=== PATIENT | female | born 1955 | race Caucasian/White ===

== ENCOUNTER → 2022-05-18 | Outpatient (CLI) | payer MEDICARE ==
[2022-05-18 13:30] VITALS: BP 174/74; PULSE 80; RESP 18; TEMP 98.5
--- NOTE | 2022-05-18 14:02 | P.GSHP ---
History of Present Illness H&P Date: 05/18/22 Chief Complaint: invasive ductal left breast cancer April is a 67 year old white female seen in consultation for Dr. Gutiérrez regarding a left breast cancer. She states she noticed some fullness in her left breast approximately 3 months ago. She had a bilateral mammogram performed at [facility] was followed by a left breast ultrasound on 04-13-22. This revealed in the 2 o'clock position of the left breast and indistinct irregular mass. It measured 4.2 cm x 2 point centimeters the patient was also noted to have a approximately a 2 cm lesion in proximity to this. A left axillary lymph node was noted to be have an 8 a thickened cortex and a biopsy of this was performed as well. No lesions of concern were noted in the right breast. Pathology revealed in the left breast at 2:00 and invasive ductal carcinoma grade 2, left axillary tail invasive ductal carcinoma grade 2, and left axillary core biopsy lymph node with no evidence of metastatic disease. She has not had any other surgery trauma or infection in her breast. This was her first mammogram. Caffiene: 2 liter/day diet coke nicotine: 1 PPD/40 years BCP: stopped 30 years ago, used them for 10 years chocolate: several times/week Family history: maternal grandfather: prostate cancer sister: breast cancer; 48; lung cancer from this separate from breast cancer Hormonal History: menarche: 10 G0 BCP: 10 years menopause: 46 Surgical History: left leg amputation diabetes throat : 3 cyst removed Medical History: diabetes HTN Social History: nicotine: 1 PPD/ 40 years alcohol: none drugs: Marijuana occasional - Constitutional Constitutional: Denies chills, Denies fever - EENT Eyes: denies blurred vision, denies pain Ears: deny: decreased hearing, tinnitus Ears, nose, mouth and throat: Denies headache, Denies sore throat - Breasts Breasts: bilateral: as per HPI - Cardiovascular Cardiovascular: Denies chest pain, Denies shortness of breath - Respiratory Respiratory: Denies cough, Denies 7 - Gastrointestinal Gastrointestinal: Denies abdominal pain, Denies diarrhea, Denies nausea, Denies vomiting - Genitourinary (Female) Genitourinary: Denies dysuria, Denies hematuria - Menstruation Menstruation: Reports postmenopausal - Musculoskeletal Comment: leg amputation left Musculoskeletal: Denies myalgias - Integumentary Integumentary: Denies pruritus, Denies rash - Neurological Neurological: Denies numbness, Denies weakness - Psychiatric Psychiatric: Reports anxiety, Reports depression - Endocrine Comment: diabetes: 20 years - Hematologic/Lymphatic Comment: plavix - Allergic/Immunologic Allergic/Immunologic: Reports as per HPI Past Medical History Past Medical History: Hyperlipidemia, Hypertension History of Any Multi-Drug Resistant Organisms: None Reported Additional Past Surgical History / Comment(s): Throat surgery for polyps. Left toe removed. Below the knee amputee 2011 Past Anesthesia/Blood Transfusion Reactions: No Reported Reaction Past Psychological History: Anxiety, Bipolar, Depression Smoking Status: Current every day smoker Past Alcohol Use History: None Reported Additional Past Alcohol Use History / Comment(s): states 1ppd Past Drug Use History: Marijuana Additional Drug Use History / Comment(s): occassional THC use Medications and Allergies Home Medications Medication Instructions Recorded Confirmed Type Atorvastatin [Lipitor] 20 mg PO DAILY 04/28/22 05/18/22 History Clopidogrel [Plavix] 75 mg PO DAILY 04/28/22 05/18/22 History DULoxetine HCL [Cymbalta] 120 mg PO DAILY 04/28/22 05/18/22 History Insulin Aspart [NovoLOG] 30 units SQ TID 04/28/22 05/18/22 History Insulin Detemir (Levemir) [Levemir] 45 unit SQ HS 04/28/22 05/18/22 History Sertraline [Zoloft] 50 mg PO DAILY 04/28/22 05/18/22 History Triamterene-Hctz 37.5-25Mg 1 cap PO DAILY 04/28/22 05/18/22 History [Dyazide 37.5-25 Capsule] amLODIPine [Norvasc] 2.5 mg PO DAILY 04/28/22 05/18/22 History atenoloL [Tenormin] 50 mg PO DAILY 04/28/22 05/18/22 History busPIRone HCL 10 mg PO TID 04/28/22 05/18/22 History lisinopriL 40 mg PO DAILY 04/28/22 05/18/22 History Allergies Allergy/AdvReac Type Severity Reaction Status Date / Time No Known Allergies Allergy Verified 05/18/22 13:31 Surgical - Exam Vital Signs Temp Pulse Resp BP Pulse Ox 98.5 F 80 18 174/74 98 05/18/22 13:24 05/18/22 13:24 05/18/22 13:24 05/18/22 13:24 05/18/22 13:24 BMI: 27.8 - General no distress - Eyes normal ocular movement - Neck trachea midline - Respiratory normal respiratory effort, clear to auscultation - Cardiovascular Rhythm: regular Heart Sounds: normal: S1, S2 - Abdomen Abdomen: soft, non tender, no guarding, no rigid, no rebound - Integumentary normal turgor - Neurologic no disoriented, no combative - Musculoskeletal normal gait - Psychiatric oriented to time, oriented to person, oriented to place, speech is normal, memory intact Breast exam: BRA: XL inspection: puckering noted of the left lateral breast, weight breast grade 3 ptosis, left breast grade 2/3 Palpation: Right breast: Multiple positional exam fibrocystic changes no dominant masses or nodules of concern Right axilla: No adenopathy of concern Left breast: Multiple positional exam fullness upper-outer quadrant area does not appear fixed to the chest wall this is approximately 6 cm in size Left axilla: No adenopathy of concern Results Mammogram and ultrasound reviewed with Dr. Baker Assessment and Plan Assessment: Impression: 1. Invasive ductal carcinoma left breast 2 sites 2. Nicotine dependence 3. Diabetes 4. Hypertension Plan: Presentation of case at tumor board Appointment with medical oncology consider neoadjuvant chemotherapy Await HER-2 status Follow up after appointment at tumor board CC: Dr. Gutiérrez
== END ==
LOC: WWCWWP 12:53
PROVIDERS: ATTEND Surgery
DX: C50.912 Malignant neoplasm of unspecified site of left female breast (principal); E11.9 Type 2 diabetes mellitus without complications; I10 Essential (primary) hypertension; F17.210 Nicotine dependence, cigarettes, uncomplicated; E78.5 Hyperlipidemia, unspecified; F41.9 Anxiety disorder, unspecified; F31.9 Bipolar disorder, unspecified; Z79.4 Long term (current) use of insulin

== ENCOUNTER → 2022-06-23 | Outpatient (CLI) | payer MEDICARE ==
--- NOTE | 2022-06-30 15:17 | BMR ---
EXAMINATION TYPE: MR breast BILAT wo/w con DATE OF EXAM: 06/26/2022 COMPARISON: Mammogram dated 03/24/2022. Ultrasound dated 04/11/2022 and 05/03/2022. HISTORY: New diagnosis left breast cancer. Lymph node biopsy was negative for malignancy. TECHNIQUE: PULSE SEQUENCES: Multiplanar, multisequence MR images of the breast were obtained on a MRI imaging sc [facility]. Pre-contrast axial T2 fat-saturated, pre-contrast non-fat saturated T1, and one pre- and five post-contrast fat-saturated images were obtained of both breasts together with the breast coil. Delay ed volume axial gradient-echo images were obtained of both breasts together with the breast coil. Pos t-processed subtraction and MIP reconstructions were then generated. Dynamic images were spatially re gistered using the [employer] software package, and dynamic curves and parametric images were evaluated. As part of the dynamic portion of this examination, 7 mL of Gadavist was administered intravenously, without complication. Field of view for the dynamic portion of this study was 34 cm. FINDINGS: The technical quality of this study is considered adequate to make a final assessment and recommendat ion. There is scattered fibroglandular tissue bilaterally and minimal background enhancement. Axial T2 sequence demonstrates normal right axillary lymph nodes. There are at least 6 abnormal morph ology left axillary lymph nodes involving surgical levels 1 and 2. The largest lymph node low level 1 measures 2.5 cm. Axial T2 sequence demonstrates no cysts or fluid collections. There is diffuse skin and trabecular ed jesus throughout the entire left breast. Pectoralis muscle edema is also noted. In addition there is an asymmetric pleural effusion in the left. Non fat saturated T1 sequence demonstrates no fat containing lesions. Signal void is seen within a ma ss in the posterior 2 o'clock position of the left breast corresponding to mammographic marker clip s een on post biopsy mammogram dated 05/03/2022. Signal void is also seen deep to the 2.5 cm level 1 axi llary lymph node within the fatty tissue anterior to the pectoralis major muscle. There is diffuse mo derate skin thickening. Delayed post contrast sequence demonstrates left internal mammary lymphadenopathy involving surgical levels 1/2, 2/3, and 4/5 (axial dynamic post-contrast sequence image number 79). Regarding the right breast: There are no masses, architectural distortion or suspicious areas of enha ncement. Regarding the left breast: At the 2 o'clock position, 9.2 cm from the nipple, there is an irregular m ass with spiculated margins measuring 5.7 x 3.8 x 5.3 cm. Internal enhancement is heterogeneous. Kine tic assessment demonstrates fast initial enhancement followed by washout in the delayed portions of t he curve. This is best seen in image number [id number] of the axial dynamic sequence. The mass invades the p ectoralis major muscle for a length of 2.7 cm. In addition, there is discontinuous enhancement of the pectoralis muscle 1 cm inferior to the muscle invasion. There is lateral skin retraction with 6 mm o f focal enhancement highly suspicious for skin invasion. There are additional smaller masses anterior and central in location for an additional extent of 2.5 cm. Total extent of known malignancy plus additional masses is 7.6 x 6.3 cm. IMPRESSION: Known malignancy identified at the 2 o'clock position of the left breast with associated additional m asses for a total extent of 7.6 x 6.3 cm. Associated findings includes pectoralis muscle invasion, skin invasion, skin thickening, and skin and trabecular edema. Left axillary level 1 and 2 adenopathy. Left internal mammary adenopathy. Asymmetric left pleural effusion. No evidence of malignancy in the right breast. Normal right axillary lymph nodes. Recommendations: Appropriate action be taken of the known left breast malignancy. If it would change surgical manageme nt, repeat left axillary biopsy can be performed to confirm metastatic disease to the axilla. Thoracentesis can be performed if clinically indicated to assess left pleural effusion. BI-RADS category 1, negative right breast. BI-RADS category 6, known biopsy proven malignancy left breast. I have reviewed the exam and agree with the stat rad radiology report
== END | disposition home or self-care (01) ==
LOC: RADMRIMAIN 08:23
PROVIDERS: ATTEND Surgery
DX: C50.412 Malignant neoplasm of upper-outer quadrant of left female breast (principal); C50.212 Malignant neoplasm of upper-inner quadrant of left female breast; J90 Pleural effusion, not elsewhere classified; R59.0 Localized enlarged lymph nodes
CPT/HCPCS: C8908; A9585; 77049

== ENCOUNTER → 2022-07-06 | Outpatient (CLI) | payer MEDICARE ==
[2022-07-06 14:02] VITALS: BP 156/90; PULSE 82; RESP 17; TEMP 98.6
--- NOTE | 2022-07-06 14:15 | P.PN ---
Progress Note - Text Progress Note Date: 07/06/22 April is a 67-year-old white female who had a routine mammogram on 78. This revealed a 3.7 x 2.7 cm mass in the upper outer quadrant of the left breast at 2:00. [place] [id number] which revealed invasive ductal carcinoma grade 2 ER positive TN Positive and HER-2 negative. Additionally left axillary tail was biopsied which also revealed a grade 2 invasive ductal carcinoma. A left axillary lymph node was biopsied which was negative. The patient subsequently had an Oncotype DX done which showed a recurrence score of 24 and was noted to have a less than 1% benefit for chemotherapy. The patient has approximately 10% benefit for endocrine therapy preventing recurrence at 9 years. The patient had a MRI performed on [id number]. This revealed in the left breast an irregular mass with spiculated margins measuring 5.7 x 3.8 x 5.3 cm. Additionally the mass appeared to invade the pectoralis major muscle for a length of 2.7 cm. In addition there was discontinuous enhancement of the pectoralis muscle 1 cm inferior to the muscular invasion. There was lateral skin retraction with a 6 mm focal enhancement highly suspicious for skin invasion. There were additional smaller masses anterior and central for an additional extensive 2.5 cm. Total extent of no malignancy plus additional mass was approximately 7.6 x 6.3 cm. In addition the axillary region was suspicious and level I and level II for adenopathy and suspicious for left internal mammary adenopathy The patient was seen in consultation by Dr. Garcia of follow-up and was given a discussion regarding chemotherapy and hormonal therapy. Secondary to her Oncotype score chemotherapy was declined. The patient's lesion is felt to be a T2 clinical N0 clinical M0 G2 ER. Positive HER-2 negative lesion making this a clinical stage IB. attempt at core biopsy of the suspecious axillary node fabby-adjuvant hormone therapy follow up i one month CC: Dr. Adamson, Dr. Gutiérrez
== END | disposition home or self-care (01) ==
LOC: WWCWWP 13:40
PROVIDERS: ATTEND Surgery
DX: C50.912 Malignant neoplasm of unspecified site of left female breast (principal)

== ENCOUNTER → 2022-08-04 | Outpatient (CLI) | payer MEDICARE | END | disposition home or self-care (01) | LOC: RADPETMAIN 12:20 | PROVIDERS: ATTEND Internal Medicine | DX: Z53.9 Procedure and treatment not carried out, unspecified reason (principal) ==

== ENCOUNTER 2022-09-21 16:58 | Emergency (ER) | payer MEDICARE ==
[2022-09-21 17:54] VITALS: BP 182/72; PULSE 80; RESP 20; TEMP 97.9
--- NOTE | 2022-09-21 18:53 | XR ---
EXAMINATION: XR chest 2V: 09/21/2022 6:24 PM CLINICAL INDICATION: difficulty breathing TECHNIQUE: PA and lateral views. COMPARISON: None available. FINDINGS: On the right there is a rounded 5 cm diameter soft tissue mass in the right apex, abutting the right superoposterior mediastinal margin. The right lung is otherwise well expanded and clear. Right pleura l space shows only the previous pleural effusion posteriorly. On the left, there is a moderate pleural effusion with prominent atelectasis of the left lower lobe a nd lower lingula; request that concurrent bronchopneumonia be excluded clinically. The cardiac silhouette is not enlarged. The skeletal structures and soft tissues are negative for acute findings. Results discussed with ordering physician in order to help expedite management decision making. IMPRESSION: 1. 5 cm RUL bronchogenic mass. 2. Large left pleural effusion with passive atelectasis of the LLL and lower lingula.
[2022-09-21 19:27] LABS: Basophils # (A) 0.1 k/uL (0-0.2); Basophils % (A) 1 %; Eosinophils # (A) 0.1 k/uL (0-0.7); Eosinophils % (A) 1 %; HCT 36.4 % (34.0-46.0); HGB 12.1 gm/dL (11.4-16.0); Hypochromasia Slight; Lymphocytes # (A) 1.4 k/uL (1.0-4.8); Lymphocytes % (A) 15 %; MCH 28.7 pg (25.0-35.0); MCHC 33.3 g/dL (31.0-37.0); Mean Platelet Volume 8.7; Monocytes # (A) 0.7 k/uL (0-1.0); Monocytes % (A) 8 %; Neutrophils # (A) 6.5 k/uL (1.3-7.7); Neutrophils % (A) 73 %; Platelet Count 353 k/uL (150-450); RBC 4.23 m/uL (3.80-5.40); RDW 13.8 % (11.5-15.5)
[2022-09-21 19:34] LABS: INR 0.9 (<1.2); Partial Thromboplastin Time 22.4 sec (22.0-30.0); Prothrombin Time 9.9 sec (9.0-12.0)
[2022-09-21 19:40] LABS: Albumin 3.5 g/dL (3.5-5.0); Calcium 8.3 mg/dL (8.4-10.2); Total Bilirubin 0.4 mg/dL (0.2-1.3); Total Protein 5.9 g/dL (6.3-8.2)
== END 2022-09-21 21:40 | disposition left against medical advice (07) ==
LOC: EC 16:58
DX: Z53.21 Procedure and treatment not carried out due to patient leaving prior to being seen by health care provider (principal)
CPT/HCPCS: 36415; 71046; 80053; 83735; 84484; 85025; 85610; 85730; 93005; 99499

== ENCOUNTER 2022-09-26 17:29 | Inpatient (IN) | payer MEDICARE, OTHER ==
[2022-09-26 18:39] LABS: Basophils # (A) 0.1 k/uL (0-0.2); Basophils % (A) 2 %; Eosinophils # (A) 0.2 k/uL (0-0.7); Eosinophils % (A) 2 %; HCT 36.2 % (34.0-46.0); HGB 12.1 gm/dL (11.4-16.0); Hypochromasia Slight; Lymphocytes # (A) 1.3 k/uL (1.0-4.8); Lymphocytes % (A) 15 %; MCH 28.4 pg (25.0-35.0); MCHC 33.4 g/dL (31.0-37.0); Mean Platelet Volume 8.4; Monocytes # (A) 0.7 k/uL (0-1.0); Monocytes % (A) 8 %; Neutrophils # (A) 6.5 k/uL (1.3-7.7); Neutrophils % (A) 72 %; Platelet Count 380 k/uL (150-450); Poikilocytosis Slight; RBC 4.26 m/uL (3.80-5.40); WBC 9.1 k/uL (3.8-10.6)
[2022-09-26 18:53] LABS: Albumin 3.6 g/dL (3.5-5.0); Calcium 8.4 mg/dL (8.4-10.2); Potassium 4.4 mmol/L (3.5-5.1); Total Bilirubin 0.5 mg/dL (0.2-1.3); Total Protein 6.3 g/dL (6.3-8.2)
--- NOTE | 2022-09-26 19:04 | XR ---
EXAMINATION TYPE: XR chest 2V DATE OF EXAM: 09/26/2022 6:43 PM COMPARISON: Chest radiographs from 09/21/2022 TECHNIQUE: XR chest 2V Frontal and lateral views of the chest. CLINICAL INDICATION:Female, 67 years old with history of difficulty breathing; FINDINGS: Lungs/Pleura: Right lower lobe increased airspace opacities. Right upper lobe airspace opacity not si gnificantly changed from immediate prior. Mass measures up to 5.2 x 4.4 cm. Moderate left pleural eff usion associated atelectasis. No pneumothorax. Trace or pleural fusion. Pulmonary vascularity: Unremarkable. Heart/mediastinum: Cardiomediastinal silhouette is unremarkable. Musculoskeletal: No acute osseous pathology. IMPRESSION: 1. Increased right lower lobe airspace opacities correlate for developing pneumonia. 2. Right upper lobe pulmonary suspected mass remains present 3. Similar moderate left pleural effusion. 4. Trace right pleural effusion.
[2022-09-26] MEDS ORDERED: PNEUMONIA PROTOCOL UTILIZED 1 EACH MISC PO PRN (19:06)
[2022-09-26] MEDS ORDERED: AZITHROMYCIN 500 MG in SODIUM CHLORIDE 0.9% 250 ML IVPB STA (19:06)
[2022-09-26] MEDS: SODIUM CHLORIDE 0.9% 1,000 ML IV SCH (20:45)
--- NOTE | 2022-09-26 21:03 | ED ---
SOB HPI - General Chief Complaint: Shortness of Breath Stated Complaint: sob Time Seen by Provider: 09/26/22 17:43 Source: patient Mode of arrival: ambulatory Limitations: no limitations - History of Present Illness Initial Comments: This patient is a 67-year-old woman who is directly here from the office of her primary physician Dr. Gutiérrez. He had seen the patient today in relation to some shortness of breath that is been going on. Patient had come here to be seen about 5 days ago for these symptoms but she left without being seen by physician. While she was in the waiting room she did have labs and chest x-ray performed. Dr. Gutiérrez had reviewed these today in clinic and she was found to have a lung mass and it was noted that her creatinine was markedly elevated. Patient states that in comparison with Sunday she has not really noted that much change. She is not currently having chest pain. She is not sure about having a fever. She is having occasional cough. MD Complaint: shortness of breath -: days(s) Severity scale (1-10): 0 Consistency: constant Improves With: nothing Worsens With: nothing Associated Symptoms: cough Treatments Prior to Arrival: none - Related Data Home Oxygen Therapy: No Home Medications Medication Instructions Recorded Confirmed Atorvastatin [Lipitor] 20 mg PO DAILY 04/28/22 09/26/22 Clopidogrel [Plavix] 75 mg PO DAILY 04/28/22 09/26/22 DULoxetine HCL [Cymbalta] 60 mg PO BID 04/28/22 09/26/22 Sertraline [Zoloft] 50 mg PO DAILY 04/28/22 09/26/22 amLODIPine [Norvasc] 2.5 mg PO DAILY 04/28/22 09/26/22 atenoloL [Tenormin] 50 mg PO DAILY 04/28/22 09/26/22 busPIRone HCL 10 mg PO TID PRN 04/28/22 09/26/22 lisinopriL 40 mg PO DAILY 04/28/22 09/26/22 Ascorbic Acid [Vitamin C] 1,000 mg PO BID 09/26/22 09/26/22 Fluticasone Nasal [place] [Flonase 1 spr EA NOSTRIL DAILY 09/26/22 09/26/22 Nasal [place]] Insulin Aspart [NovoLOG Flexpen] See Protocol SQ AC-TID 09/26/22 09/26/22 Insulin Detemir [Levemir Flextouch 40 units SQ HS 09/26/22 09/26/22 Pen] Meclizine [Antivert] 25 mg PO DAILY 09/26/22 09/26/22 Multivitamins, Thera [Multivitamin 1 tab PO DAILY 09/26/22 09/26/22 (formulary)] Triamterene-Hctz 37.5-25Mg 1 tab PO DAILY 09/26/22 09/26/22 [Maxzide 37.5-25] Zinc Gluconate [Zinc] 50 mg PO DAILY 09/26/22 09/26/22 Allergies Allergy/AdvReac Type Severity Reaction Status Date / Time No Known Allergies Allergy Verified 09/26/22 17:40 Review of Systems ROS Statement: Those systems with pertinent positive or pertinent negative responses have been documented in the HPI. ROS Other: All systems not noted in ROS Statement are negative. Constitutional: Denies: fever, chills Respiratory: Reports: cough. Denies: dyspnea, wheezes Cardiovascular: Reports: chest pain. Denies: palpitations, edema Gastrointestinal: Denies: abdominal pain, nausea, vomiting Genitourinary: Denies: dysuria, hematuria Musculoskeletal: Denies: back pain Skin: Denies: rash Neurological: Denies: headache, weakness, numbness Past Medical History Past Medical History: Cancer, Hyperlipidemia, Hypertension History of Any Multi-Drug Resistant Organisms: None Reported Additional Past Surgical History / Comment(s): Throat surgery for polyps. Left toe removed. Below the knee amputee 2011 Past Anesthesia/Blood Transfusion Reactions: No Reported Reaction Past Psychological History: Anxiety, Bipolar, Depression Smoking Status: Current every day smoker Past Alcohol Use History: None Reported Past Drug Use History: Marijuana General Exam Limitations: no limitations General appearance: alert, in no apparent distress Head exam: Present: atraumatic, normocephalic Eye exam: Present: normal appearance. Absent: scleral icterus, conjunctival injection ENT exam: Present: mucous membranes dry Neck exam: Present: normal inspection Respiratory exam: Present: normal lung sounds bilaterally. Absent: respiratory distress, wheezes, rales, rhonchi, stridor Cardiovascular Exam: Present: regular rate, normal rhythm, normal heart sounds. Absent: systolic murmur, diastolic murmur, rubs, gallop GI/Abdominal exam: Present: soft. Absent: distended, tenderness, guarding, rebound, rigid, mass Extremities exam: Present: normal inspection, normal capillary refill. Absent: pedal edema, calf tenderness Back exam: Present: normal inspection. Absent: CVA tenderness (R), CVA tenderness (L) Neurological exam: Present: alert Skin exam: Present: warm, dry, intact, normal color. Absent: rash Course Vital Signs 09/26/22 09/26/22 09/26/22 17:35 20:48 22:22 Temperature 98 F Pulse Rate 78 72 74 Pulse Rate [ Pulse Oximetery ] Respiratory 18 18 18 Rate Blood Pressure 194/100 225/99 197/86 Blood Pressure [Left Arm] O2 Sat by Pulse 95 95 97 Oximetry 09/26/22 09/26/22 22:36 23:06 Temperature 97.8 F Pulse Rate 81 Pulse Rate [ 80 Pulse Oximetery ] Respiratory 16 18 Rate Blood Pressure 186/93 Blood Pressure 205/84 [Left Arm] O2 Sat by Pulse 93 L 95 Oximetry Medical Decision Making - Medical Decision Making Patient's 67-year-old woman sent in from her primary physician's office. There is noted to be suspicious lung mass as well as elevation of BUN/creatinine. Will have patient value by nephrology as well as further evaluation of the lung mass. I did interpret the patient's chest x-ray as showing a right upper lung infiltrate, not possible to exclude underlying mass. Was pt. sent in by a medical professional or institution? @ -[Dr. Gutiérrez Did you speak to anyone other than the patient for history? @ -[Family Did you review nursing and triage notes? @ -[agree Were old charts reviewed? @ -[Previous emergency department visit Differential Diagnosis? @ -[Differential Chest Pain: Stable Angina, Unstable Angina, STEMI, NSTEMI Aortic Dissection, Pneumothorax, Musculoskeletal, Esophageal Spasm GERD, Cholecystitis, Pancreatitis, Zoster, this is not meant to be an all-inclusive list. EKG interpreted by me (3pts min.)? @ -[See chart X-rays interpreted by me (1pt min.)? @ -[See chart CT interpreted by me (1pt min.)? @ -[none] U/S interpreted by me (1pt. min.)? @ -[none] What testing was considered but not performed? (CT, X-rays, U/S, labs)? Why? @ [Considered computed tomography scan chest but will leave the specific imaging for the specialists What meds were considered but not given? Why? @ -[none] Did you discuss the management of the patient with other professionals? @ -[Admitting physician Did you reconcile home meds? @ -[Yes Was smoking cessation discussed for >3mins.? @ -[none] Was critical care preformed (if so, how long)? @ -[none] Were there social determinants of health that impacted care today? How? (Homelessness, low income, unemployed, alcoholism, drug addiction, transportation, low edu. Level, literacy, decrease access to med. care, nursing home, rehab)? @ -[No Was there de-escalation of care discussed even if they declined? (Discuss DNR or withdrawal of care, Hospice)? @ -[No What co-morbidities impacted this encounter? (DM, HTN, Smoking, COPD, CAD, Cancer, CVA, Hep., AIDS, mental health diagnosis, sleep apnea, morbid obesity)? @ -[No Was patient admitted / discharged? @ -[Admitted Undiagnosed new problem with uncertain prognosis? @ -[none] Drug Therapy requiring intensive monitoring for toxicity (Heparin, Nitro, Insulin, Cardizem)? @ -[none] Were any procedures done? @ -[none] Diagnosis/symptom? @ -[1. Acute pneumonia 2. Suspect new diagnosis right upper lung mass Acute, or Chronic, or Acute on Chronic? @ -[1. Acute Uncomplicated (without systemic symptoms) or Complicated (systemic symptoms)? @ -[Uncomplicated Side effects of treatment? @ -[none] Exacerbation, Progression, or Severe Exacerbation] @ -[no] Poses a threat to life or bodily function? @ -[no] - Lab Data Result diagrams: 10/01/22 06:25 10/01/22 06:25 Lab Results 09/26/22 09/26/22 09/26/22 Range/Units 18:14 18:14 18:14 WBC 9.1 (3.8-10.6) k/uL RBC 4.26 (3.80-5.40) m/uL Hgb 12.1 (11.4-16.0) gm/dL Hct 36.2 (34.0-46.0) % MCV 85.0 (80.0-100.0) fL MCH 28.4 (25.0-35.0) pg MCHC 33.4 (31.0-37.0) g/dL RDW 14.0 (11.5-15.5) % Plt Count 380 (150-450) k/uL MPV 8.4 Neutrophils % 72 % Lymphocytes % 15 % Monocytes % 8 % Eosinophils % 2 % Basophils % 2 % Neutrophils # 6.5 (1.3-7.7) k/uL Lymphocytes # 1.3 (1.0-4.8) k/uL Monocytes # 0.7 (0-1.0) k/uL Eosinophils # 0.2 (0-0.7) k/uL Basophils # 0.1 (0-0.2) k/uL Hypochromasia Slight Poikilocytosis Slight Sodium 140 (137-145) mmol/L Potassium 4.4 (3.5-5.1) mmol/L Chloride 111 H (98-107) mmol/L Carbon Dioxide 17 L (22-30) mmol/L Anion Gap 12 mmol/L BUN 76 H (7-17) mg/dL Creatinine 4.75 H (0.52-1.04) mg/dL Est GFR (CKD-EPI)AfAm 10 (>60 ml/min/1.73 sqM) Est GFR (CKD-EPI)NonAf 9 (>60 ml/min/1.73 sqM) Glucose 160 H (74-99) mg/dL Plasma Lactic Acid Tony 1.1 (0.7-2.0) mmol/L Calcium 8.4 (8.4-10.2) mg/dL Magnesium 2.0 (1.6-2.3) mg/dL Total Bilirubin 0.5 (0.2-1.3) mg/dL AST 20 (14-36) U/L ALT 13 (4-34) U/L Alkaline Phosphatase 94 (38-126) U/L Troponin I (0.000-0.034) ng/mL NT-Pro-B Natriuret Pep pg/mL Total Protein 6.3 (6.3-8.2) g/dL Albumin 3.6 (3.5-5.0) g/dL 09/26/22 09/26/22 Range/Units 18:14 18:14 WBC (3.8-10.6) k/uL RBC (3.80-5.40) m/uL Hgb (11.4-16.0) gm/dL Hct (34.0-46.0) % MCV (80.0-100.0) fL MCH (25.0-35.0) pg MCHC (31.0-37.0) g/dL RDW (11.5-15.5) % Plt Count (150-450) k/uL MPV Neutrophils % % Lymphocytes % % Monocytes % % Eosinophils % % Basophils % % Neutrophils # (1.3-7.7) k/uL Lymphocytes # (1.0-4.8) k/uL Monocytes # (0-1.0) k/uL Eosinophils # (0-0.7) k/uL Basophils # (0-0.2) k/uL Hypochromasia Poikilocytosis Sodium (137-145) mmol/L Potassium (3.5-5.1) mmol/L Chloride (98-107) mmol/L Carbon Dioxide (22-30) mmol/L Anion Gap mmol/L BUN (7-17) mg/dL Creatinine (0.52-1.04) mg/dL Est GFR (CKD-EPI)AfAm (>60 ml/min/1.73 sqM) Est GFR (CKD-EPI)NonAf (>60 ml/min/1.73 sqM) Glucose (74-99) mg/dL Plasma Lactic Acid Tony (0.7-2.0) mmol/L Calcium (8.4-10.2) mg/dL Magnesium (1.6-2.3) mg/dL Total Bilirubin (0.2-1.3) mg/dL AST (14-36) U/L ALT (4-34) U/L Alkaline Phosphatase (38-126) U/L Troponin I <0.012 (0.000-0.034) ng/mL NT-Pro-B Natriuret Pep 74121 pg/mL Total Protein (6.3-8.2) g/dL Albumin (3.5-5.0) g/dL - EKG Data -: EKG Interpreted by De EKG shows normal: sinus rhythm, axis (Normal), intervals (Normal), QRS complexes (Normal) Rate: normal (Rate 71 bpm) Interpretation: nonspecific ST-T wave changes Disposition Clinical Impression: Mass of lung, Acute kidney injury Disposition: ADMITTED IP TO THIS HOSP Condition: Fair
[2022-09-26] MEDS ORDERED: lisinopriL 20 MG TAB PO STA (21:51)
[2022-09-26] MEDS ORDERED: atenoloL 50 MG TAB PO STA (21:51)
[2022-09-26] MEDS ORDERED: hydrALAZINE HCL 20 MG/ML 1 ML VIAL IVP PRN (22:28)
[2022-09-26] MEDS ORDERED: DEXTROSE 50% SYRINGE 50 ML IVP PRN ×2 (22:35)
--- NOTE | 2022-09-27 00:26 | US ---
EXAMINATION TYPE: US renals and bladder DATE OF EXAM: 09/26/2022 COMPARISON: NONE CLINICAL HISTORY: uriah. uriah EXAM MEASUREMENTS: Right Kidney: 9.6 x 4.1 x 5.6 cm Left Kidney: 9.9 x 4.1 x 5.4 cm Right Kidney: No hydronephrosis or masses seen Left Kidney: No hydronephrosis or masses seen Bladder: Artifact vs echogenic material in posterior bladder Bilateral Jets seen: Right jet seen, limited due to gas Incidental finding: free fluid visualized in right chest. There is no evidence for hydronephrosis at this point in time. No nephrolithiasis is seen. No yan s are identified. The urinary bladder is anechoic. Bilateral ureteral jets are seen. IMPRESSION: No evidence of renal mass or obstruction. Right-sided ureteral jet is demonstrated. No definite bladd er mass. Possible debris in the posterior urinary bladder. There is right pleural effusion.
[2022-09-27] MEDS: IPRATROPIUM-ALBUTEROL 3 ML NEB INHALATION SCH ×5 (02:28→20:55)
[2022-09-27] MEDS: SODIUM CHLORIDE 0.9% 1,000 ML IV SCH (06:44)
[2022-09-27] MEDS ORDERED: cloNIDine 0.2 MG/24HR PATCH TRANSDERM SCH (07:00)
[2022-09-27 07:08] LABS: Glucose,Whole Blood 332 mg/dL (70-110)
--- NOTE | 2022-09-27 07:14 | XR ---
CLINICAL INDICATION:Female, 67 years old with history of pneumonia; EXAMINATION TYPE: XR chest 2V DATE OF EXAM: 09/27/2022 6:39 AM COMPARISON: Chest radiographs from 09/26/2022 TECHNIQUE: XR chest 2V Frontal and lateral views of the chest. CLINICAL INDICATION:Female, 67 years old with history of pneumonia; FINDINGS: Lungs/Pleura: Right lower lobe increased airspace opacities. Right upper lobe airspace opacity not si gnificantly changed from immediate prior. Mass measures up to 5.2 x 4.4 cm. Moderate left pleural eff usion associated atelectasis. No pneumothorax. Trace or pleural fusion. Pulmonary vascularity: Unremarkable. Heart/mediastinum: Cardiomediastinal silhouette is unremarkable. Musculoskeletal: No acute osseous pathology. IMPRESSION: 1. Improved right lower lobe airspace opacities suggesting prior atelectasis. 2. Right upper lobe pulmonary suspected mass remains present. 3. Similar moderate left pleural effusion. 4. Trace right pleural effusion.
[2022-09-27 07:48] LABS: Basophils # (A) 0.1 k/uL (0-0.2); Basophils % (A) 1 %; Eosinophils # (A) 0.1 k/uL (0-0.7); Eosinophils % (A) 1 %; HCT 36.3 % (34.0-46.0); HGB 11.3 gm/dL (11.4-16.0); Hypochromasia Slight; Lymphocytes % (A) 10 %; MCH 27.6 pg (25.0-35.0); MCHC 31.2 g/dL (31.0-37.0); MCV 88.4 fL (80.0-100.0); Mean Platelet Volume 8.1; Monocytes # (A) 0.3 k/uL (0-1.0); Monocytes % (A) 4 %; Neutrophils % (A) 82 %; Platelet Count 339 k/uL (150-450); Poikilocytosis Slight; RDW 14.6 % (11.5-15.5); WBC 9.8 k/uL (3.8-10.6)
[2022-09-27] MEDS: INSULIN ASPART (NovoLOG) 100 UNIT/ML VIAL SQ SCH ×4 (07:57→21:33)
[2022-09-27] MEDS: amLODIPine 10 MG TAB PO SCH (08:00)
[2022-09-27] MEDS: hydrALAZINE HCL 25 MG TAB PO SCH ×3 (08:00→21:33)
[2022-09-27 08:04] LABS: Calcium 8.1 mg/dL (8.4-10.2)
--- NOTE | 2022-09-27 08:55 | US ---
EXAMINATION TYPE: US chest DATE OF EXAM: 09/27/2022 COMPARISON: CXR CLINICAL HISTORY: left pleural effusion. Left effusion TECHNIQUE: Targeted ultrasound of the posterior lower left hemithorax EXAM MEASUREMENTS: Left Pleural Effusion pocket size: 10.4 cm Left skin surface to fluid distance: 5.0 cm Left side marked for possible thoracentesis outside the dept. Pulmonologists are able to review the images in the patient?s EMR. IMPRESSIONS: Moderate to large left pleural effusion.
[2022-09-27] MEDS: AZITHROMYCIN 500 MG TAB PO SCH (09:03)
--- NOTE | 2022-09-27 09:31 | P.HPIM ---
History of Present Illness this is a pleasant 67 years old female with past medical history of hypertension, hyperlipidemia, Bipolar, anxiety and depression, diabetes mellitus Patient was complaining of from dyspnea for about a week and her PCP Dr. Gutiérrez send her to emergency room. She denies cough no chest pain patient noticed decrease frequency and amount of urination recently She's been feeling dizziness for the last 3 months but no weakness or numbness. No GI symptoms like no vomiting diarrhea or abdominal pain Patient also follow up with Dr. dash for recently diagnosed left breast cancer as she states since last April. She is not on chemotherapy Vitals are stable, blood pressure elevated to 225/99, now improved 189/82 Labs including CBC is unremarkable. Creatinine is elevated 4.7 was 3.7 about 5 days ago There were enzymes are unremarkable, proBNP is elevated 11 600, troponin is negative. EKG showing normal sinus rhythm at [address]-T changes Increased right lower lobe airspace opacity correlated for developing pneumonia. Right upper lobe pulmonary suspected mass remains present. Seminal moderate left pleural effusion and trace right pleural effusion In the emergency room patient started on Zithromax and ceftriaxone and normal saline 100 mL/h. Bladder scan checks it was 270 Review of Systems Review of systems CONSTITUTIONAL: No fever, no malaise, no fatigue. HEENT: No recent visual problems or hearing problems. Denied any sore throat. CARDIOVASCULAR: No orthopnea, PND, no palpitations, no syncope. PULMONARY: no cough, no hemoptysis. GASTROINTESTINAL: No diarrhea, no nausea, no vomiting, no abdominal pain. Normoactive bowel sounds. NEUROLOGICAL: No headaches, no weakness, no numbness. HEMATOLOGICAL: Denies any bleeding or petechiae. GENITOURINARY: Denies any burning micturition, frequency, or urgency. MUSCULOSKELETAL/RHEUMATOLOGICAL: Denies any joint pain, swelling, or any muscle pain. ENDOCRINE: Denies any polyuria or polydipsia. Past Medical History Past Medical History: Cancer, Hyperlipidemia, Hypertension History of Any Multi-Drug Resistant Organisms: None Reported Additional Past Surgical History / Comment(s): Throat surgery for polyps. Left toe removed. Below the knee amputee 2011 Past Anesthesia/Blood Transfusion Reactions: No Reported Reaction Past Psychological History: Anxiety, Bipolar, Depression Smoking Status: Current every day smoker Past Alcohol Use History: None Reported Past Drug Use History: Marijuana Medications and Allergies Home Medications Medication Instructions Recorded Confirmed Type Atorvastatin [Lipitor] 20 mg PO DAILY 04/28/22 09/26/22 History Clopidogrel [Plavix] 75 mg PO DAILY 04/28/22 09/26/22 History DULoxetine HCL [Cymbalta] 60 mg PO BID 04/28/22 09/26/22 History Sertraline [Zoloft] 50 mg PO DAILY 04/28/22 09/26/22 History amLODIPine [Norvasc] 2.5 mg PO DAILY 04/28/22 09/26/22 History atenoloL [Tenormin] 50 mg PO DAILY 04/28/22 09/26/22 History busPIRone HCL 10 mg PO TID PRN 04/28/22 09/26/22 History lisinopriL 40 mg PO DAILY 04/28/22 09/26/22 History Ascorbic Acid [Vitamin C] 1,000 mg PO BID 09/26/22 09/26/22 History Fluticasone Nasal [place] [Flonase 1 spr EA NOSTRIL DAILY 09/26/22 09/26/22 History Nasal Comins] Insulin Aspart [NovoLOG Flexpen] See Protocol SQ AC-TID 09/26/22 09/26/22 History Insulin Detemir [Levemir Flextouch 40 units SQ HS 09/26/22 09/26/22 History Pen] Meclizine [Antivert] 25 mg PO DAILY 09/26/22 09/26/22 History Multivitamins, Thera [Multivitamin 1 tab PO DAILY 09/26/22 09/26/22 History (formulary)] Triamterene-Hctz 37.5-25Mg 1 tab PO DAILY 09/26/22 09/26/22 History [Maxzide 37.5-25] Zinc Gluconate [Zinc] 50 mg PO DAILY 09/26/22 09/26/22 History Allergies Allergy/AdvReac Type Severity Reaction Status Date / Time No Known Allergies Allergy Verified 09/26/22 17:40 Physical Exam Vitals: Vital Signs Temp Pulse Pulse Resp BP BP Pulse Ox 09/27/22 07:04 97.2 F L 86 17 189/82 95 09/27/22 07:00 97.2 F L 86 17 189/82 95 09/27/22 01:44 98.1 F 81 16 193/78 92 L 09/27/22 00:07 98.1 F 81 15 168/81 94 L 09/26/22 23:06 81 18 186/93 95 09/26/22 22:36 97.8 F 80 16 205/84 93 L 09/26/22 22:22 74 18 197/86 97 09/26/22 20:48 72 18 225/99 95 09/26/22 17:35 98 F 78 18 194/100 95 Intake and Output 09/26/22 09/27/22 09/27/22 22:59 06:59 14:59 Output Total 271 Balance -271 Output: Post Void Residual 271 Other: # Voids 1 Weight 75.75 kg GENERAL: The patient is alert and oriented x3, not in any acute distress. Well developed, well nourished. HEENT: Pupils are round and equally reacting to light. EOMI. No scleral icterus. No conjunctival pallor. Normocephalic, atraumatic. No pharyngeal erythema. No thyromegaly. CARDIOVASCULAR: S1 and S2 present. No murmurs, rubs, or gallops. PULMONARY: Chest is clear to auscultation, no wheezing or crackles. ABDOMEN: Soft, nontender, nondistended, normoactive bowel sounds. No palpable organomegaly. MUSCULOSKELETAL: No joint swelling or deformity. -EXTREMITIES: No cyanosis, clubbing, or pedal edema. Left BKA with prosthesis at bedside NEUROLOGICAL: Gross neurological examination did not reveal any focal deficits. SKIN: No rashes. no petechiae. Results CBC & Chem 7: 09/27/22 07:28 09/27/22 07:28 Labs: Abnormal Lab Results - Last 24 Hours (Table) 09/26/22 09/27/22 09/27/22 Range/Units 18:14 07:06 07:28 Hgb 11.3 L (11.4-16.0) gm/dL Neutrophils # 8.0 H (1.3-7.7) k/uL Chloride 111 H (98-107) mmol/L Carbon Dioxide 17 L (22-30) mmol/L BUN 76 H (7-17) mg/dL Creatinine 4.75 H (0.52-1.04) mg/dL Glucose 160 H (74-99) mg/dL POC Glucose (mg/dL) 332 H (70-110) mg/dL Calcium (8.4-10.2) mg/dL 09/27/22 Range/Units 07:28 Hgb (11.4-16.0) gm/dL Neutrophils # (1.3-7.7) k/uL Chloride 113 H (98-107) mmol/L Carbon Dioxide 11 L (22-30) mmol/L BUN 74 H (7-17) mg/dL Creatinine 4.87 H (0.52-1.04) mg/dL Glucose 315 H (74-99) mg/dL POC Glucose (mg/dL) (70-110) mg/dL Calcium 8.1 L (8.4-10.2) mg/dL Thrombosis Risk Factor Assmnt - Choose All That Apply Each Factor Represents 1 point: Serious lung disease incl. pneumonia (< 1month) Each Risk Factor Represents 2 Points: Age 61-74 years Other congenital or acquired thrombophilia - If yes, enter type in comment: No Thrombosis Risk Factor Assessment Total Risk Factor Score: 3 Thrombosis Risk Factor Assessment Level: Moderate Risk Assessment and Plan Assessment: Acute renal failure Right upper lobe pulmonary mass suspected, Left pleural effusion History of left breast cancer diagnosed last April not on chemotherapy Possible acute diastolic CHF Right lower lobe opacities, less likely pneumonia Hypertension Hyperlipidemia Diabetes mellitus History of bipolar, anxiety, not in active tissue Surgery of left BKA Plan: pt is currently on normal saline 100 mL per hour Rolling Attendant consult follow-up Check renal ultrasound Consult oncology and pulmonary service IV hydralazine when necessary for blood pressure and monitor blood pressure closely. Start oral hydralazine and Norvasc Check pro-calcitonin check echocardiogram monitor creatinine and input and output, monitor blood pressure closely. Labs and medication were reviewed.. Continue same treatment. Continue with symptomatic treatment. Resume home medication. Monitor lytes and vitals. DVT and GI prophylaxis. Further recommendations as per clinical course of the patient DVT prophylaxis: Subcutaneous heparin GI Prophylaxis: Pepcid PT/OT: Pending
--- NOTE | 2022-09-27 09:54 | CT ---
EXAMINATION TYPE: CT chest wo con DATE OF EXAM: 09/27/2022 COMPARISON: Chest x-ray 09/26/2022 HISTORY: RUL mass CT DLP: 399.6 mGycm, Automated exposure control for dose reduction was used. CONTRAST: Performed injected with 0 mL of Isovue 300. TECHNIQUE: Axial images were obtained at 5 mm thick sections. Reconstructed images are reviewed on [employer] computer in the coronal plane. FINDINGS: Thyroid is heterogenous with some hypodensity within the left lobe thyroid. Consider additi onal workup with ultrasound. There is a 4.4 x 3.9 cm mass in the posterior right upper lobe. Workup for neoplasm is recommended. S mall area of increased densities in the anterior right lung measuring 0.5 cm. Series 205 image 27. So me pleural-based thickening along the anterior left lung is present. Small to moderate bilateral pleu ral effusions are present. There is an enlarged 2.2 cm lymph node in the pretracheal space above the level of the sultana. Right hilar fullness is present. Lack of intravenous contrast somewhat limits evaluation or adenopathy and mass. Subcarinal lymph node may be present measuring 1.4 cm. These findings can be further evaluated with PET/CT. The ascending aorta diameter at the level of the main pulmonary artery is 3.6 cm. The main pulmonary artery diameter at the bifurcation is 2.7 cm. Coronary artery calcification is present. Some buck sive atelectasis adjacent to the left pleural effusion is present. Limited CT sections are obtained through the upper abdomen. Low-density thickening of the left adrena l gland measures 1.3 cm IMPRESSIONS: 1. Posterior right lung mass with enlarged mediastinal adenopathy. PET/CT is recommended for addition al workup for neoplasm. 2. There is some thickening of the left adrenal gland. Metastasis and adenoma are within the differen tial. 3. Small to moderate bilateral pleural effusions. Some compressive atelectasis is adjacent to the lef t pleural effusion.
[2022-09-27 11:02] LABS: Glucose,Whole Blood 291 mg/dL (70-110)
[2022-09-27] MEDS ORDERED: SODIUM BICARB 8.4% 50 ML SYR (1 MEQ/ML) IV STA (11:11)
--- NOTE | 2022-09-27 11:15 | P.NPCON ---
History of Present Illness - Reason for Consult acute renal failure - History of Present Illness Reason for consultation: Acute kidney injury History of present illness: The patient is a 67-year-old female seen in consultation for acute kidney injury. Patient's creatinine is a 09/21/2022 was 3.7 to and is 4.7-4.8 this admission. Unknown baseline renal function. Patient does not follow with a behavior support specialist outpatient and denies any personal or family history of renal disease. Patient does have long-standing history of diabetes. Bases states she was treated for upper respiratory infection with antibiotics outpatient and had no improvement in symptoms. She was seen by her PCP yesterday and was advised to go to the hospital. Patient was diagnosed with breast cancer last year and is being worked up by oncology. She is noted to have a lung mass. She did undergo thoracentesis this morning was 750 mL drained. She was taking lisinopril as well as triamterene/hctz at home which are currently held. She is receiving IV fluids. Acidosis is worse. Patient states she has been voiding. Denies hematuria. Denies use of nonsteroidals. No vomiting or diarrhea. No chest pain or shortness of breath. Vital signs are stable. General: No acute distress. HEENT: Head exam is unremarkable. LUNGS Breath sounds decreased. HEART: Rate and Rhythm are regular. ABDOMEN: Soft, no distention. EXTREMITITES: Left BKA. No edema. Past Medical History Past Medical History: Cancer, Hyperlipidemia, Hypertension History of Any Multi-Drug Resistant Organisms: None Reported Additional Past Surgical History / Comment(s): Throat surgery for polyps. Left toe removed. Below the knee amputee 2011 Past Anesthesia/Blood Transfusion Reactions: No Reported Reaction Past Psychological History: Anxiety, Bipolar, Depression Smoking Status: Current every day smoker Past Alcohol Use History: None Reported Past Drug Use History: Marijuana Medications and Allergies Home Medications Medication Instructions Recorded Confirmed Type Atorvastatin [Lipitor] 20 mg PO DAILY 04/28/22 09/26/22 History Clopidogrel [Plavix] 75 mg PO DAILY 04/28/22 09/26/22 History DULoxetine HCL [Cymbalta] 60 mg PO BID 04/28/22 09/26/22 History Sertraline [Zoloft] 50 mg PO DAILY 04/28/22 09/26/22 History amLODIPine [Norvasc] 2.5 mg PO DAILY 04/28/22 09/26/22 History atenoloL [Tenormin] 50 mg PO DAILY 04/28/22 09/26/22 History busPIRone HCL 10 mg PO TID PRN 04/28/22 09/26/22 History lisinopriL 40 mg PO DAILY 04/28/22 09/26/22 History Ascorbic Acid [Vitamin C] 1,000 mg PO BID 09/26/22 09/26/22 History Fluticasone Nasal [place] [Flonase 1 spr EA NOSTRIL DAILY 09/26/22 09/26/22 History Nasal [place]] Insulin Aspart [NovoLOG Flexpen] See Protocol SQ AC-TID 09/26/22 09/26/22 History Insulin Detemir [Levemir Flextouch 40 units SQ HS 09/26/22 09/26/22 History Pen] Meclizine [Antivert] 25 mg PO DAILY 09/26/22 09/26/22 History Multivitamins, Thera [Multivitamin 1 tab PO DAILY 09/26/22 09/26/22 History (formulary)] Triamterene-Hctz 37.5-25Mg 1 tab PO DAILY 09/26/22 09/26/22 History [Maxzide 37.5-25] Zinc Gluconate [Zinc] 50 mg PO DAILY 09/26/22 09/26/22 History Allergies Allergy/AdvReac Type Severity Reaction Status Date / Time No Known Allergies Allergy Verified 09/26/22 17:40 Physical Exam Vitals: Vital Signs Temp Pulse Pulse Resp BP BP Pulse Ox 09/27/22 07:04 97.2 F L 86 17 189/82 95 09/27/22 07:00 97.2 F L 86 17 189/82 95 09/27/22 01:44 98.1 F 81 16 193/78 92 L 09/27/22 00:07 98.1 F 81 15 168/81 94 L 09/26/22 23:06 81 18 186/93 95 09/26/22 22:36 97.8 F 80 16 205/84 93 L 09/26/22 22:22 74 18 197/86 97 09/26/22 20:48 72 18 225/99 95 09/26/22 17:35 98 F 78 18 194/100 95 Intake and Output 09/26/22 09/27/2209/27/23 22:59 06:59 14:59 Output Total 271 Balance -271 Output: Post Void Residual 271 Other: Voiding Method Bedside Commode # Voids 1 Weight 75.75 kg Results - Lab Results Most recent lab results Calcium 8.1 mg/dL (8.4-10.2) L 09/27/22 07:28 Magnesium 2.0 mg/dL (1.6-2.3) 09/26/22 18:14 09/27/22 07:28 09/27/22 07:28 Assessment and Plan Plan: Assessment: 1. Acute kidney injury secondary to ATN versus progression of underlying chronic kidney disease. Creatinine 4.87 today. No hydronephrosis noted on kidney ultrasound. Creatinine on 09/21/2022 was 3.72. Unknown baseline renal function. 2. Bilateral pleural effusions status post right-sided thoracentesis with 750 mL drained. 3. History of breast cancer. Now noted to have right lung mass with concern for adrenal metastasis as well. Bronchoscopy pending. 4. Metabolic acidosis secondary to acute kidney injury. 5. Diabetes mellitus. Plan: Change normal saline to isotonic sodium bicarbonate drip to be run at 75 mL an hour. Check bladder scan to make sure no urinary retention. Strict I's and O's. Blood sugar control. Hold lisinopril as well as diuretics. Patient started on multiple antihypertensives. When necessary hydralazine also ordered. Avoid nephrotoxins. Continue to monitor renal function and urine output. Thank you for the consultation. I will continue to follow patient with you during her hospital stay.
[2022-09-27] MEDS ORDERED: IOPAMIDOL CONTRAST (ORAL USE) VIAL PO PRN (12:03)
--- NOTE | 2022-09-27 12:14 | XR ---
EXAMINATION TYPE: XR chest 1V portable DATE OF EXAM: 09/27/2022 11:45 AM COMPARISON: Chest radiographs from 09/27/2022 TECHNIQUE: XR chest 1V portable Frontal and lateral views of the chest. CLINICAL INDICATION:Female, 67 years old with history of post-thoracentesis left; FINDINGS: Lungs/Pleura: Interval decrease in the left pleural effusion. No evidence of pneumothorax. Right uppe r lobe airspace opacity not significantly changed from immediate prior. Mass measures up to 5.2 x 4.4 cm. Trace or pleural fusion. Pulmonary vascularity: Unremarkable. Heart/mediastinum: Cardiomediastinal silhouette is unremarkable. Musculoskeletal: No acute osseous pathology. IMPRESSION: 1. Right upper lobe pulmonary mass remains present. 2. Decrease in left pleural effusion. No evidence of pneumothorax. 3. Trace right pleural effusion.
[2022-09-27] MEDS: DEXTROSE 5% IN WATER 1,000 ML with SODIUM BICARB (1 MEQ/ML) 150 ML IV SCH (13:19)
--- NOTE | 2022-09-27 14:04 | P.CNPUL ---
History of Present Illness Consult date: 09/27/22 Requesting physician: Mariusz Pendleton Reason for consult: pleural effusion, lung mass Chief complaint: shortness of breath for one week History of present illness: I'm evaluating this patient today on 09/27/2022 in regard to a new consult that was placed for a large right lung mass. The patient was directed to [facility] by her primary care physician Dr. Gutiérrez, after having shortness of breath for approximately 1 week. there is an associated nonproductive cough. Patient denies any hemoptysis, chest pain, fevers. Her pertinent medical history is positive for left breast ductal carcinoma diagnosed in April,. She apparently has not started treatment yet, and is waiting on a PET scan. She is a 2 pack per day smoker for approximately 50 years, has a history of a left BKA, hyperlipidemia, hypertension, diabetes mellitus, anxiety, bipolar, depression. no family history of lung cancer noted. her non-enhanced chest CT from today showed a posterior right lung mass with enlarged mediastinal adenopathy, some thickening of the left adrenal gland which could indicate metastasis or adenoma, and some small to moderate to moderate bilateral pleural effusions with compress cassy atelectasis adjacent to the left pleural effusion. Patient had a follow-up chest ultrasound which showed a moderate to large left pleural effusion, which will need to be drained for symptom relief and cytology. she is currently resting in bed, on 2 L nasal cannula, in no acute distress. she is receiving DuoNeb inhalation. renal ultrasound was also done yesterday on 09/26/2022 due to elevation in her creatinine which showed no evidence of renal mass or obstruction, some possible debris in the posterior urinary bladder, and no definite bladder mass. nephrology consult was placed. CBC from today shows a WBC count 9.8, hemoglobin 11.3, hematocrit 36.3, platelets 339,000. Her BMP from today shows a sodium of 140, potassium 5, chloride 113, serum CO2 11, BUN 74, creatinine 4.87, glucose 315. She received 2 amps of sodium bicarbonate IV push, and she is receiving 3 amps of sodium bicarbonate in dextrose at 75 mL per hour. her procalcitonin was mildly elevated at 0.24. she is empirically receiving azithromycin and Rocephin. Her pro BNP was 11,400. Troponins are negative 1. vital signs remain stable at this time. her blood pressure is hypertensive and her home antihypertensive medications have been restarted, however, lisinopril is on hold due to her acute kidney injury. Review of Systems REVIEW OF SYSTEMS: CONSTITUTIONAL: Denies any recent significant weight loss or weight gain. denies fevers. EYES: Denies change in vision. EARS, NOSE, MOUTH, THROAT: Denies headaches, denies sore throat. CARDIOVASCULAR: Denies chest pain, palpitations or syncopal episodes. RESPIRATORY: Denies congestion or hemoptysis. see HPI GASTROINTESTINAL: Denies change in appetite, denies abdominal pain GENITOURINARY: Denies hematuria, denies infections. MUSKULOSKELETAL: Denies pain, denies swelling. INTEGUMENTARY: Denies rash, denies eczema. NEUROLOGICAL: Denies recent memory loss, no recent seizure activity. PSYCHIATRIC: Denies anxiety, denies depression. HEMATOLOGIC/LYMPHATIC: Denies anemia, denies enlarged lymph nodes. Past Medical History Past Medical History: Cancer, Diabetes Mellitus, Hyperlipidemia, Hypertension Additional Past Medical History / Comment(s): left breast ductal carcinoma diagnosed April, History of Any Multi-Drug Resistant Organisms: None Reported Additional Past Surgical History / Comment(s): Throat surgery for polyps. Left toe removed. Below the knee amputee 2011 Past Anesthesia/Blood Transfusion Reactions: No Reported Reaction Past Psychological History: Anxiety, Bipolar, Depression Smoking Status: Current every day smoker Past Alcohol Use History: None Reported Past Drug Use History: Marijuana Medications and Allergies Home Medications Medication Instructions Recorded Confirmed Type Atorvastatin [Lipitor] 20 mg PO DAILY 04/28/22 09/26/22 History Clopidogrel [Plavix] 75 mg PO DAILY 04/28/22 09/26/22 History DULoxetine HCL [Cymbalta] 60 mg PO BID 04/28/22 09/26/22 History Sertraline [Zoloft] 50 mg PO DAILY 04/28/22 09/26/22 History amLODIPine [Norvasc] 2.5 mg PO DAILY 04/28/22 09/26/22 History atenoloL [Tenormin] 50 mg PO DAILY 04/28/22 09/26/22 History busPIRone HCL 10 mg PO TID PRN 04/28/22 09/26/22 History lisinopriL 40 mg PO DAILY 04/28/22 09/26/22 History Ascorbic Acid [Vitamin C] 1,000 mg PO BID 09/26/22 09/26/22 History Fluticasone Nasal [place] [Flonase 1 spr EA NOSTRIL DAILY 09/26/22 09/26/22 History Nasal [place]] Insulin Aspart [NovoLOG Flexpen] See Protocol SQ AC-TID 09/26/22 09/26/22 History Insulin Detemir [Levemir Flextouch 40 units SQ HS 09/26/22 09/26/22 History Pen] Meclizine [Antivert] 25 mg PO DAILY 09/26/22 09/26/22 History Multivitamins, Thera [Multivitamin 1 tab PO DAILY 09/26/22 09/26/22 History (formulary)] Triamterene-Hctz 37.5-25Mg 1 tab PO DAILY 09/26/22 09/26/22 History [Maxzide 37.5-25] Zinc Gluconate [Zinc] 50 mg PO DAILY 09/26/22 09/26/22 History Allergies Allergy/AdvReac Type Severity Reaction Status Date / Time No Known Allergies Allergy Verified 09/26/22 17:40 Physical Exam Vitals: Vital Signs Temp Pulse Pulse Resp BP BP Pulse Ox 09/27/22 07:04 97.2 F L 86 17 189/82 95 09/27/22 07:00 97.2 F L 86 17 189/82 95 09/27/22 01:44 98.1 F 81 16 193/78 92 L 09/27/22 00:07 98.1 F 81 15 168/81 94 L 09/26/22 23:06 81 18 186/93 95 09/26/22 22:36 97.8 F 80 16 205/84 93 L 09/26/22 22:22 74 18 197/86 97 09/26/22 20:48 72 18 225/99 95 09/26/22 17:35 98 F 78 18 194/100 95 Intake and Output 09/26/22 09/27/22 09/27/22 22:59 06:59 14:59 Output Total 271 Balance -271 Output: Post Void Residual 271 Other: Voiding Method Bedside Commode # Voids 1 Weight 75.75 kg GENERAL EXAM: Alert, 67-year-old female, comfortable in no apparent distress. HEAD: Normocephalic and atraumatic EYES: Normal reaction of pupils, equal size. NOSE: Clear with pink turbinates. THROAT: No erythema or exudates. NECK: No masses, no JVD. CHEST: No chest wall deformity. LUNGS: Equal air entry with no crackles, wheeze, rhonchi or dullness. on 2 L nasal cannula. No conversational dyspnea or accessory muscle use. CVS: S1 and S2 normal with no audible murmur, regular rhythm. ABDOMEN: No hepatosplenomegaly, normal bowel sounds, no guarding or rigidity. SPINE: No scoliosis or deformity. no CVA tenderness. SKIN: No rashes CENTRAL NERVOUS SYSTEM: No focal deficits, tone is normal in all 4 extremities. EXTREMITIES: There is no peripheral edema, clubbing, or cyanosis. Peripheral pulses are intact. there is a left BKA Results - Laboratory Findings CBC and BMP: 09/27/22 07:28 09/27/22 07:28 Abnormal lab findings: Abnormal Labs 09/26/22 09/27/22 09/27/22 18:14 07:06 07:28 Hgb Neutrophils # Chloride 111 H Carbon Dioxide 17 L BUN 76 H Creatinine 4.75 H Glucose 160 H POC Glucose (mg/dL) 332 H Calcium Procalcitonin 0.24 H 09/27/22 09/27/22 09/27/22 07:28 07:28 11:01 Hgb 11.3 L Neutrophils # 8.0 H Chloride 113 H Carbon Dioxide 11 L BUN 74 H Creatinine 4.87 H Glucose 315 H POC Glucose (mg/dL) 291 H Calcium 8.1 L Procalcitonin - Diagnostic Findings Chest x-ray: image reviewed CT scan - chest: image reviewed Assessment and Plan Assessment: large right lung mass with suspicious adenopathy. plan for bronchoscopy with biopsies if cytology from thoracentesis is inconclusive. Large left pleural effusion. Plan for thoracentesis today. Will send fluid for cytology. acute kidney injury. hold nephrotoxic agents metabolic acidosis, secondary to above. Patient has received 2 ampules of sodium bicarbonate 8.4%, and has dextrose with 3 ampules of sodium bicarbonate 8.4% infusing at 75 mL per hour. 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 Has not started treatment yet. oncology has been consulted hypertension Hyperlipidemia Current smoker. 100 pack years history of left BKA Plan: patient's medications, labs, non-enhanced chest CT, chest ultrasound, chest x- ray were all reviewed. continue supplemental oxygen to maintain oxygen saturation 92% or greater. We will proceed with left thoracentesis for symptom relief and diagnostic evaluation will plan for possible bronchoscopy for diagnostic purposes Encourage smoking cessation Continue with sodium bicarbonate infusion hold nephrotoxic agents continue DuoNeb inhalation we will continue to follow I have personally seen and examined the patient, performed the documentation and the assessment and plan as written. Number of minutes spent on the visit: 20 Time with Patient: Greater than 30
[2022-09-27 14:28] LABS: Total Protein 5.5 g/dL (6.2-8.2)
[2022-09-27 16:28] LABS: Glucose,Whole Blood 384 mg/dL (70-110)
[2022-09-27 17:10] LABS: Appearance,BF Clear
--- NOTE | 2022-09-27 18:33 | OP ---
OPERATIVE REPORT PROCEDURE PERFORMED: Left-sided thoracentesis. PREOPERATIVE DIAGNOSIS: Left pleural effusion. POSTOPERATIVE DIAGNOSIS: Left pleural effusion. ANESTHESIA USED: 6 mL of 1% lidocaine. DESCRIPTION OF PROCEDURE: The patient was placed in a sitting upright position, and the area below the left scapula was prepared in a sterile fashion, and drapes were applied. The area at the level of the tip of the scapula and the eighth intercostal space was locally anesthetized. Then, a 26-gauge needle was inserted, and fluid was localized with a needle. Multiple attempts were done to access the fluid again with the thoracentesis catheter; however, on the third attempt, I was able to get into the pleural space and drained the fluid. The catheter was advanced over the needle, and the needle was pulled out of the pleural space. Roughly 800 mL of anita-colored fluid was removed from the left pleural space. Fluid was nonbloody and non-serosanguineous, and it was sent for different diagnostic studies. Procedure was tolerated. No complications. No evidence of pneumothorax. MMODL / IJN: [id number] /
--- NOTE | 2022-09-27 19:24 | P.CONS ---
History of Present Illness - Reason for Consult Consult date: 09/27/22 pleural fluid, lung mass, breast cancer Requesting physician: Tobi E Sheet - Chief Complaint SOB - History of Present Illness Ms. Enrique is a 67 year old female pt of Dr. Adam Adamson with a PMH of TBI, HTN, HLD, and type II DM And a recent diagnosis of clinical stage IIIC left breast cancer-pending staging scans-who presented to the ED for SOB. She reports SOB has been ongoing for the last 1 week, sent to the ER by her PCP for further evaluation. Reports intermittent dizziness for the last 3 months. Denies fevers, weakness and numbness, CP, palpitations, abdominal pain, N/V/D. CXR showed increased right lower lobe airspace opacity correlated for developing pne umonia, being treated with zithromax and ceftriaxone. Right upper lobe suspected mass with moderate left pleural effusion and trace right pleural effusion present. Thoracentesis was performed and 750ml was removed, cytology pending. She reports her breathing is much better after 750 cc thoracentesis. Bronchoscopy scheduled for tomorrow for biopsy of lung mass. Oncology history: Routine mammogram 03/24/22 revealed 3.7 x 2.7 cm mass in upper outer quadrant of the left breast at 2:00 11 cm from nipple. Core biopsy on 05/05/22 revealing invasive ductal carcinoma, grade 2, ER/NH +/+, 91-100% and 41-50% respectively, HER-2 low, FISH neg. Left axillary tail was biopsied and also revealed grade 2 IDC. Left axilla lymph node biopsied was negative for metastatic carcinoma. Her case was discussed at [facility] Multidisciplinary Breast Tumor Board with recommendation for Oncotype Dx testing with possible neoadjuvant chemotherapy depending on results of testing. Oncotype Dx recurrence score was 24, which noted < 1% benefit for chemotherapy preventing recurrence at 9 years. Adjuvant endocrine therapy noted 10% benefit for preventing recurrence at 9 years. Patient had a delay in getting MRI of the breasts. She finally had the MRI August. Unfortunately this revealed lymphadenopathy, concern for invasion of left pectoralis muscle. She was upstaged clinically to a T4N3B/IIIc from initially a IB. Imaging was ordered at that time for staging. Insurance would not approve staging PET scan so CT CAP and NM BS ordered. They were scheduled for last month but family rescheduled those appointments so, scheduled in the next 2 weeks. Review of Systems 10 point ROS is neg except as stated in HPI Past Medical History Past Medical History: Cancer, Hyperlipidemia, Hypertension History of Any Multi-Drug Resistant Organisms: None Reported Additional Past Surgical History / Comment(s): Throat surgery for polyps. Left toe removed. Below the knee amputee 2011 Past Anesthesia/Blood Transfusion Reactions: No Reported Reaction Past Psychological History: Anxiety, Bipolar, Depression Smoking Status: Current every day smoker Past Alcohol Use History: None Reported Past Drug Use History: Marijuana Medications and Allergies Home Medications Medication Instructions Recorded Confirmed Type Atorvastatin [Lipitor] 20 mg PO DAILY 04/28/22 09/26/22 History Clopidogrel [Plavix] 75 mg PO DAILY 04/28/22 09/26/22 History DULoxetine HCL [Cymbalta] 60 mg PO BID 04/28/22 09/26/22 History Sertraline [Zoloft] 50 mg PO DAILY 04/28/22 09/26/22 History amLODIPine [Norvasc] 2.5 mg PO DAILY 04/28/22 09/26/22 History atenoloL [Tenormin] 50 mg PO DAILY 04/28/22 09/26/22 History busPIRone HCL 10 mg PO TID PRN 04/28/22 09/26/22 History lisinopriL 40 mg PO DAILY 04/28/22 09/26/22 History Ascorbic Acid [Vitamin C] 1,000 mg PO BID 09/26/22 09/26/22 History Fluticasone Nasal [place] [Flonase 1 spr EA NOSTRIL DAILY 09/26/22 09/26/22 History Nasal [place]] Insulin Aspart [NovoLOG Flexpen] See Protocol SQ AC-TID 09/26/22 09/26/22 History Insulin Detemir [Levemir Flextouch 40 units SQ HS 09/26/22 09/26/22 History Pen] Meclizine [Antivert] 25 mg PO DAILY 09/26/22 09/26/22 History Multivitamins, Thera [Multivitamin 1 tab PO DAILY 09/26/22 09/26/22 History (formulary)] Triamterene-Hctz 37.5-25Mg 1 tab PO DAILY 09/26/22 09/26/22 History [Maxzide 37.5-25] Zinc Gluconate [Zinc] 50 mg PO DAILY 09/26/22 09/26/22 History Allergies Allergy/AdvReac Type Severity Reaction Status Date / Time No Known Allergies Allergy Verified 09/26/22 17:40 Physical Exam Vitals: Vital Signs Temp Pulse Pulse Resp BP BP Pulse Ox 09/27/22 07:04 97.2 F L 86 17 189/82 95 09/27/22 07:00 97.2 F L 86 17 189/82 95 09/27/22 01:44 98.1 F 81 16 193/78 92 L 09/27/22 00:07 98.1 F 81 15 168/81 94 L 09/26/22 23:06 81 18 186/93 95 09/26/22 22:36 97.8 F 80 16 205/84 93 L 09/26/22 22:22 74 18 197/86 97 09/26/22 20:48 72 18 225/99 95 09/26/22 17:35 98 F 78 18 194/100 95 Intake and Output 09/26/22 09/27/22 09/27/22 22:59 06:59 14:59 Output Total 271 Balance -271 Output: Post Void Residual 271 Other: Voiding Method Bedside Commode # Voids 1 Weight 75.75 kg - Constitutional General appearance: average body habitus, cooperative, no acute distress - EENT Eyes: anicteric sclerae, EOMI ENT: hearing grossly normal, normal oropharynx - Neck Neck: no lymphadenopathy - Respiratory Respiratory: bilateral: diminished (bases, L>R) - Cardiovascular Rhythm: regular Abnormal Heart Sounds: no systolic murmur, no diastolic murmur, no rub, no S3 Gallop, no S4 Gallop, no click, no other leg Peripheral Edema: right: None, left: Other (BKA) - Gastrointestinal General gastrointestinal: no absent bowel sounds, no decreased bowel sounds, no distended, no hepatomegaly, no hyperactive bowel sounds, normal bowel sounds, no organomegaly, no rigid, no scaphoid, soft, no splenomegaly, no tenderness, no umbilical hernia, no ventral hernia - Integumentary Integumentary: normal - Neurologic Neurologic: CNII-XII intact (grossly) - Musculoskeletal Musculoskeletal: strength equal bilaterally - Psychiatric mild cognitive deficits 2/2 closed head injury Psychiatric: A&O x's 3, appropriate affect bilateral breast exam: right breast manual exam neg, left breast lateral biopsy site visible, mass posterior, 3-4 cm, thickened tissue lateral tail of lt breast, no palpable LAD in axilla Results CBC & Chem 7: 09/27/22 07:28 09/27/22 07:28 Labs: Abnormal Lab Results - Last 24 Hours (Table) 09/26/22 09/27/22 09/27/22 Range/Units 18:14 07:06 07:28 Hgb (11.4-16.0) gm/dL Neutrophils # (1.3-7.7) k/uL Chloride 111 H (98-107) mmol/L Carbon Dioxide 17 L (22-30) mmol/L BUN 76 H (7-17) mg/dL Creatinine 4.75 H (0.52-1.04) mg/dL Glucose 160 H (74-99) mg/dL POC Glucose (mg/dL) 332 H (70-110) mg/dL Calcium (8.4-10.2) mg/dL Procalcitonin 0.24 H (0.02-0.09) ng/mL 09/27/22 09/27/22 09/27/22 Range/Units 07:28 07:28 11:01 Hgb 11.3 L (11.4-16.0) gm/dL Neutrophils # 8.0 H (1.3-7.7) k/uL Chloride 113 H (98-107) mmol/L Carbon Dioxide 11 L (22-30) mmol/L BUN 74 H (7-17) mg/dL Creatinine 4.87 H (0.52-1.04) mg/dL Glucose 315 H (74-99) mg/dL POC Glucose (mg/dL) 291 H (70-110) mg/dL Calcium 8.1 L (8.4-10.2) mg/dL Procalcitonin (0.02-0.09) ng/mL Chest x-ray: report reviewed CT scan - chest: report reviewed Assessment and Plan (1) Breast carcinoma Current Visit: Yes Status: Acute Priority: High Code(s): C50.919 - MALIGNANT NEOPLASM OF UNSP SITE OF UNSPECIFIED FEMALE BREAST SNOMED Code(s): 272076239 (2) Mass of lung Current Visit: Yes Status: Acute Priority: High Code(s): R91.8 - OTHER NONSPECIFIC ABNORMAL FINDING OF LUNG FIELD SNOMED Code(s): 975121806 Plan: Invasive ductal carcinoma -Stage IIIc, clinically,Hormone receptor positive, HER-2 negative. Pending staging studies. Patient's creatinine is currently not good enough for her to have the imaging studies inpatient-I believe this is new, will check labs from the office. These studies have been delayed almost a month already. Shortness of breath -Lt Pleural effusion and a right lung mass. -Status post 750 cc thoracentesis, Improvement in symptoms, cytology pending. -Pulmonary sched bronch and biopsy brought to evaluate the 4.4 x 3.9 cm mass in the rt lung Agree with Pulmonary plan for biopsy. Not certain if this is metastatic breast cancer or a new primary. Pathology pending
[2022-09-27 19:59] LABS: Glucose, BF Source Thoracentesis Fluid; Glucose, Body Fluid 311 mg/dL; LDH, Body Fluid Source Thoracentesis Fluid; T. Protein, Body Fluid Source Thoracentesis Fluid; Total Protein, Body Fluid 2680 mg/dL
[2022-09-27 21:23] LABS: Glucose,Whole Blood 435 mg/dL (70-110)
[2022-09-27] MEDS ORDERED: DEXTROSE 50% SYRINGE 50 ML IVP PRN ×2 (21:45)
[2022-09-27] MEDS ORDERED: INSULIN DETEMIR (LEVEMIR) 100 UNIT/ML SYR SQ SCH (21:45)
[2022-09-28 02:24] LABS: Glucose,Whole Blood 357 mg/dL (70-110)
[2022-09-28] MEDS: DEXTROSE 5% IN WATER 1,000 ML with SODIUM BICARB (1 MEQ/ML) 150 ML IV SCH (04:56)
[2022-09-28 06:39] LABS: Glucose,Whole Blood 420 mg/dL (70-110)
[2022-09-28] MEDS ORDERED: INSULIN ASPART (NovoLOG) 100 UNIT/ML VIAL SQ ONE ×2 (07:55→17:06)
[2022-09-28] MEDS: INSULIN ASPART (NovoLOG) 100 UNIT/ML VIAL SQ SCH ×5 (08:07→21:26)
[2022-09-28] MEDS: amLODIPine 10 MG TAB PO SCH (08:09)
[2022-09-28] MEDS: AZITHROMYCIN 500 MG TAB PO SCH (08:09)
[2022-09-28] MEDS: hydrALAZINE HCL 25 MG TAB PO SCH ×3 (08:10→21:25)
[2022-09-28] MEDS: IPRATROPIUM-ALBUTEROL 3 ML NEB INHALATION SCH ×4 (08:29→20:12)
[2022-09-28 09:32] LABS: Glucose,Whole Blood 379 mg/dL (70-110)
[2022-09-28 10:41] LABS: Basophils # (A) 0.08 X 10*3/uL (0.00-0.10); Eosinophils # (A) 0.11 X 10*3/uL (0.04-0.35); Eosinophils % (A) 1.4 %; HCT 28.2 % (37.2-46.3); HGB 8.9 g/dL (12.0-15.0); Immature Grans, Automated 0.6 %; Lymphocytes # (A) 1.16 X 10*3/uL (0.90-5.00); Lymphocytes % (A) 14.4 %; MCH 27.6 pg (27.0-32.0); MCHC 31.6 g/dL (32.0-37.0); MCV 87.3 fL (80.0-97.0); Mean Platelet Volume 10.8 fL (9.5-12.2); Monocytes # (A) 0.85 X 10*3/uL (0.20-1.00); Monocytes % (A) 10.6 %; NRBC Per 100 WBC 0 /100 WBCS (0.0-0.0); Neutrophils # (A) 5.78 X 10*3/uL (1.80-7.70); Platelet Count 257 X 10*3/uL (140-440); RBC 3.23 X 10*6/uL (4.10-5.20); RDW 14.4 % (11.5-14.5); WBC 8.03 X 10*3/uL (4.50-10.00)
[2022-09-28] MEDS ORDERED: INSULIN DETEMIR (LEVEMIR) 100 UNIT/ML SYR SQ ONE (11:00)
[2022-09-28 11:05] LABS: African American GFR (CKD) 9.6 (60.0-200.0); Anion Gap 16.2 mmol/L (10.00-18.00); BUN/Creat Ratio 14.98 Ratio (12.00-20.00); Blood Urea Nitrogen 74.9 mg/dL (9.0-27.0); Calcium 7.5 mg/dL (8.7-10.3); Carbon Dioxide 19.8 mmol/L (20.0-27.5); Non-African American GFR(CKD) 8.3 (60.0-200.0)
[2022-09-28 11:13] LABS: Glucose,Whole Blood 298 mg/dL (70-110)
[2022-09-28 11:25] VITALS: BMI 27.8
--- NOTE | 2022-09-28 11:30 | P.PN ---
Subjective this is a pleasant 67 years old female with past medical history of hypertension, hyperlipidemia, Bipolar, anxiety and depression, diabetes mellitus Patient was complaining of from dyspnea for about a week and her PCP Dr. Gutiérrez send her to emergency room. She denies cough no chest pain patient noticed decrease frequency and amount of urination recently She's been feeling dizziness for the last 3 months but no weakness or numbness. No GI symptoms like no vomiting diarrhea or abdominal pain Patient also follow up with Dr. dash for recently diagnosed left breast cancer as she states since last April. She is not on chemotherapy Vitals are stable, blood pressure elevated to 225/99, now improved 189/82 Labs including CBC is unremarkable. Creatinine is elevated 4.7 was 3.7 about 5 days ago There were enzymes are unremarkable, proBNP is elevated 11 600, troponin is negative. EKG showing normal sinus rhythm at [address]-T changes Increased right lower lobe airspace opacity correlated for developing pneumonia. Right upper lobe pulmonary suspected mass remains present. Seminal moderate left pleural effusion and trace right pleural effusion In the emergency room patient started on Zithromax and ceftriaxone and normal saline 100 mL/h. Bladder scan checks it was 270 09/28/2022 Patient still have mild dyspnea while she is lying in bed, she still also complained from low urine output and she is still constipated. She denies chest pain abdominal pain or headache, weakness or numbness. No report of GI bleed or blood in stool. Her vitals looks stable and she is saturating 95% and 2 L oxygen via nasal cannula. Her hemoglobin went down to 8.9 today while creatinine went up to 5, glucose was elevated, at times was taken Levemir 40 units and insulin sliding scale, because of her renal problem we lower the dose to 20 units daily. Currently on ceftriaxone and Zithromax and sodium bicarb. Blood pressure is better 152/60 through while she is on clonidine patch 0.2 on Norvasc 10 mg daily. And hydralazine 25 mg 3 times a day Objective - Vital Signs Vital signs: Vital Signs Temp 98.3 F 09/28/22 07:25 Pulse 80 09/28/22 08:42 Resp 17 09/28/22 07:25 BP 152/63 09/28/22 07:25 Pulse Ox 96 09/28/22 07:25 FiO2 Intake & Output 09/27/22 09/28/2223 18:59 06:59 18:59 Intake Total 240 Output Total 100 Balance -100 240 Weight 75.75 kg Intake: Oral 240 Output: Urine 100 Other: Voiding Method Bedside Commode Bedside Commode Bedside Commode # Voids 1 - Exam GENERAL: The patient is alert and oriented x3, not in any acute distress. Well developed, well nourished. HEENT: Pupils are round and equally reacting to light. EOMI. No scleral icterus. No conjunctival pallor. Normocephalic, atraumatic. No pharyngeal erythema. No thyromegaly. CARDIOVASCULAR: S1 and S2 present. No murmurs, rubs, or gallops. PULMONARY: Chest is clear to auscultation, no wheezing or crackles. ABDOMEN: Soft, nontender, nondistended, normoactive bowel sounds. No palpable organomegaly. MUSCULOSKELETAL: No joint swelling or deformity. EXTREMITIES: No cyanosis, clubbing, or pedal edema. NEUROLOGICAL: Gross neurological examination did not reveal any focal deficits. SKIN: No rashes. no petechiae. - Labs CBC & Chem 7: 09/28/22 07:34 09/28/22 07:34 Labs: Abnormal Lab Results - Last 24 Hours (Table) 09/27/22 09/27/22 09/27/22 Range/Units 07:28 07:28 16:27 RBC (4.10-5.20) X 10*6/uL Hgb (12.0-15.0) g/dL Hct (37.2-46.3) % MCHC (32.0-37.0) g/dL Immature Gran # (0.00-0.04) X 10*3/uL Carbon Dioxide (20.0-27.5) mmol/L BUN (9.0-27.0) mg/dL Creatinine (0.6-1.5) mg/dL Est GFR (CKD-EPI)AfAm (60.0-200.0) Est GFR (CKD-EPI)NonAf (60.0-200.0) Glucose (70-110) mg/dL POC Glucose (mg/dL) 384 H (70-110) mg/dL Hemoglobin A1c 9.4 H (0.0-6.0) % Calcium (8.7-10.3) mg/dL Total Protein 5.5 L (6.2-8.2) g/dL 09/27/22 09/28/22 09/28/22 Range/Units 21:21 02:22 06:37 RBC (4.10-5.20) X 10*6/uL Hgb (12.0-15.0) g/dL Hct (37.2-46.3) % MCHC (32.0-37.0) g/dL Immature Gran # (0.00-0.04) X 10*3/uL Carbon Dioxide (20.0-27.5) mmol/L BUN (9.0-27.0) mg/dL Creatinine (0.6-1.5) mg/dL Est GFR (CKD-EPI)AfAm (60.0-200.0) Est GFR (CKD-EPI)NonAf (60.0-200.0) Glucose (70-110) mg/dL POC Glucose (mg/dL) 435 H 357 H 420 H (70-110) mg/dL Hemoglobin A1c (0.0-6.0) % Calcium (8.7-10.3) mg/dL Total Protein (6.2-8.2) g/dL 09/28/22 09/28/22 09/28/22 Range/Units 07:34 07:34 09:30 RBC 3.23 L (4.10-5.20) X 10*6/uL Hgb 8.9 L (12.0-15.0) g/dL Hct 28.2 L (37.2-46.3) % MCHC 31.6 L (32.0-37.0) g/dL Immature Gran # 0.05 H (0.00-0.04) X 10*3/uL Carbon Dioxide 19.8 L (20.0-27.5) mmol/L BUN 74.9 H (9.0-27.0) mg/dL Creatinine 5.0 H (0.6-1.5) mg/dL Est GFR (CKD-EPI)AfAm 9.6 L (60.0-200.0) Est GFR (CKD-EPI)NonAf 8.3 L (60.0-200.0) Glucose 394 H (70-110) mg/dL POC Glucose (mg/dL) 379 H (70-110) mg/dL Hemoglobin A1c (0.0-6.0) % Calcium 7.5 L (8.7-10.3) mg/dL Total Protein (6.2-8.2) g/dL 09/28/22 Range/Units 11:11 RBC (4.10-5.20) X 10*6/uL Hgb (12.0-15.0) g/dL Hct (37.2-46.3) % MCHC (32.0-37.0) g/dL Immature Gran # (0.00-0.04) X 10*3/uL Carbon Dioxide (20.0-27.5) mmol/L BUN (9.0-27.0) mg/dL Creatinine (0.6-1.5) mg/dL Est GFR (CKD-EPI)AfAm (60.0-200.0) Est GFR (CKD-EPI)NonAf (60.0-200.0) Glucose (70-110) mg/dL POC Glucose (mg/dL) 298 H (70-110) mg/dL Hemoglobin A1c (0.0-6.0) % Calcium (8.7-10.3) mg/dL Total Protein (6.2-8.2) g/dL Microbiology - Last 24 Hours (Table) 09/27/22 09:58 Gram Stain - Preliminary Pleural Fluid Body Fluid Culture - Preliminary 09/26/22 20:16 Blood Culture - Preliminary Blood No Growth after 24 hours 09/26/22 20:05 Blood Culture - Preliminary Blood No Growth after 24 hours 09/27/22 09:58 Anaerobic Culture - Preliminary Pleural Fluid 09/27/22 09:58 Fungal Culture - Preliminary Pleural Fluid 09/27/22 09:58 Acid Fast Bacilli Culture - Preliminary Pleural Fluid Assessment and Plan Assessment: Acute renal failure Right upper lobe pulmonary mass suspected, Left pleural effusion, status post thoracocentesis Anemia History of left breast cancer diagnosed last April not on chemotherapy Possible acute diastolic CHF Right lower lobe opacities, less likely pneumonia Hypertension Hyperlipidemia Diabetes mellitus History of bipolar, anxiety, not in active tissue Surgery of left BKA Plan: pt is currently on normal saline 100 mL per hour Pss Delivery Professional consult follow-up Check renal ultrasound Consult oncology and pulmonary service IV hydralazine when necessary for blood pressure and monitor blood pressure closely. Start oral hydralazine and Norvasc Monitor hemoglobin and do anemia workup monitor creatinine and input and output, monitor blood pressure closely. Labs and medication were reviewed.. Continue same treatment. Continue with symptomatic treatment. Resume home medication. Monitor lytes and vitals. DVT and GI prophylaxis. Further recommendations as per clinical course of the patient DVT prophylaxis: Subcutaneous heparin GI Prophylaxis: Pepcid PT/OT: Pending
--- NOTE | 2022-09-28 11:31 | P.PN ---
Subjective Patient is seen in follow-up for acute kidney injury. Renal function little worse. Has been waiting. Urine output not measured accurately. Oral intake is poor. No vomiting or diarrhea. Vital signs are stable. General: Awake. No acute distress. HEENT: Head exam is unremarkable. On nasal cannula. LUNGS: Breath sounds decreased. HEART: Rate and Rhythm are regular. ABDOMEN: Soft, no distention. EXTREMITITES: BKA noted. No edema. Objective - Vital Signs Vital signs: Vital Signs Temp 98.3 F 09/28/22 07:25 Pulse 80 09/28/22 08:42 Resp 17 09/28/22 07:25 BP 152/63 09/28/22 07:25 Pulse Ox 96 09/28/22 07:25 FiO2 Intake & Output 09/27/22 09/28/22 09/28/22 18:59 06:59 18:59 Intake Total 240 Output Total 100 Balance -100 240 Intake: Oral 240 Output: Urine 100 Other: Voiding Method Bedside Commode Bedside Commode Bedside Commode # Voids 1 - Labs CBC & Chem 7: 09/28/22 07:34 09/28/22 07:34 Labs: Abnormal Lab Results - Last 24 Hours (Table) 09/27/22 09/27/22 09/27/22 Range/Units 07:28 07:28 16:27 RBC (4.10-5.20) X 10*6/uL Hgb (12.0-15.0) g/dL Hct (37.2-46.3) % MCHC (32.0-37.0) g/dL Immature Gran # (0.00-0.04) X 10*3/uL Carbon Dioxide (20.0-27.5) mmol/L BUN (9.0-27.0) mg/dL Creatinine (0.6-1.5) mg/dL Est GFR (CKD-EPI)AfAm (60.0-200.0) Est GFR (CKD-EPI)NonAf (60.0-200.0) Glucose (70-110) mg/dL POC Glucose (mg/dL) 384 H (70-110) mg/dL Hemoglobin A1c 9.4 H (0.0-6.0) % Calcium (8.7-10.3) mg/dL Total Protein 5.5 L (6.2-8.2) g/dL 09/27/22 09/28/22 09/28/22 Range/Units 21:21 02:22 06:37 RBC (4.10-5.20) X 10*6/uL Hgb (12.0-15.0) g/dL Hct (37.2-46.3) % MCHC (32.0-37.0) g/dL Immature Gran # (0.00-0.04) X 10*3/uL Carbon Dioxide (20.0-27.5) mmol/L BUN (9.0-27.0) mg/dL Creatinine (0.6-1.5) mg/dL Est GFR (CKD-EPI)AfAm (60.0-200.0) Est GFR (CKD-EPI)NonAf (60.0-200.0) Glucose (70-110) mg/dL POC Glucose (mg/dL) 435 H 357 H 420 H (70-110) mg/dL Hemoglobin A1c (0.0-6.0) % Calcium (8.7-10.3) mg/dL Total Protein (6.2-8.2) g/dL 09/28/22 09/28/22 09/28/22 Range/Units 07:34 07:34 09:30 RBC 3.23 L (4.10-5.20) X 10*6/uL Hgb 8.9 L (12.0-15.0) g/dL Hct 28.2 L (37.2-46.3) % MCHC 31.6 L (32.0-37.0) g/dL Immature Gran # 0.05 H (0.00-0.04) X 10*3/uL Carbon Dioxide 19.8 L (20.0-27.5) mmol/L BUN 74.9 H (9.0-27.0) mg/dL Creatinine 5.0 H (0.6-1.5) mg/dL Est GFR (CKD-EPI)AfAm 9.6 L (60.0-200.0) Est GFR (CKD-EPI)NonAf 8.3 L (60.0-200.0) Glucose 394 H (70-110) mg/dL POC Glucose (mg/dL) 379 H (70-110) mg/dL Hemoglobin A1c (0.0-6.0) % Calcium 7.5 L (8.7-10.3) mg/dL Total Protein (6.2-8.2) g/dL 09/28/22 Range/Units 11:11 RBC (4.10-5.20) X 10*6/uL Hgb (12.0-15.0) g/dL Hct (37.2-46.3) % MCHC (32.0-37.0) g/dL Immature Gran # (0.00-0.04) X 10*3/uL Carbon Dioxide (20.0-27.5) mmol/L BUN (9.0-27.0) mg/dL Creatinine (0.6-1.5) mg/dL Est GFR (CKD-EPI)AfAm (60.0-200.0) Est GFR (CKD-EPI)NonAf (60.0-200.0) Glucose (70-110) mg/dL POC Glucose (mg/dL) 298 H (70-110) mg/dL Hemoglobin A1c (0.0-6.0) % Calcium (8.7-10.3) mg/dL Total Protein (6.2-8.2) g/dL Microbiology - Last 24 Hours (Table) 09/27/22 09:58 Gram Stain - Preliminary Pleural Fluid Body Fluid Culture - Preliminary 09/26/22 20:16 Blood Culture - Preliminary Blood No Growth after 24 hours 09/26/22 20:05 Blood Culture - Preliminary Blood No Growth after 24 hours 09/27/22 09:58 Anaerobic Culture - Preliminary Pleural Fluid 09/27/22 09:58 Fungal Culture - Preliminary Pleural Fluid 09/27/22 09:58 Acid Fast Bacilli Culture - Preliminary Pleural Fluid Assessment and Plan Plan: Assessment: 1. Acute kidney injury secondary to ATN versus progression of underlying chronic kidney disease. Creatinine 5 today. No hydronephrosis noted on kidney ultrasound. Creatinine on 09/21/2022 was 3.72. Unknown baseline renal function. 2. Bilateral pleural effusions status post left-sided thoracentesis with 800 mL drained. 3. History of breast cancer. Now noted to have right lung mass with concern for adrenal metastasis as well. Bronchoscopy pending. 4. Metabolic acidosis secondary to acute kidney injury. Improved with bicarbonate drip. 5. Diabetes mellitus. 6. Anemia. Rule out iron deficiency. Plan: Maintain bicarb drip for another day. Insert Beltran catheter for strict I's and O's. Blood sugar control. Hold lisinopril as well as diuretics. Avoid nephrotoxins. Continue to monitor renal function and urine output. Check iron studies. Continue to assess daily for need for renal replacement therapy. Follow-up bone scan and echocardiogram.
[2022-09-28] MEDS: SODIUM CHLORIDE 0.45% 1,000 ML with SODIUM BICARB (1 MEQ/ML) 75 ML IV SCH ×2 (12:56)
--- NOTE | 2022-09-28 13:06 | P.PN ---
Subjective Progress Note Date: 09/28/22 Principal diagnosis: Pleural effusion, right lung mass I'm evaluating this patient today on 09/27/2022 in regard to a new consult that was placed for a large right lung mass. The patient was directed to [facility] by her primary care physician Dr. Gutiérrez, after having shortness of breath for approximately 1 week. there is an associated nonproductive cough. Patient denies any hemoptysis, chest pain, fevers. Her pertinent medical history is positive for left breast ductal carcinoma diagnosed in April,. She apparently has not started treatment yet, and is waiting on a PET scan. She is a 2 pack per day smoker for approximately 50 years, has a history of a left BKA, hyperlipidemia, hypertension, diabetes mellitus, anxiety, bipolar, depression. no family history of lung cancer noted. her non-enhanced chest CT from today showed a posterior right lung mass with enlarged mediastinal adenopathy, some thickening of the left adrenal gland which could indicate metastasis or adenoma, and some small to moderate to moderate bilateral pleural effusions with compressive atelectasis adjacent to the left pleural effusion. Patient had a follow-up chest ultrasound which showed a moderate to large left pleural effusion, which will need to be drained for symptom relief and cytology. she is currently resting in bed, on 2 L nasal cannula, in no acute distress. she is receiving DuoNeb inhalation. renal ultrasound was also done yesterday on 09/26/2022 due to elevation in her creatinine which showed no evidence of renal mass or obstruction, some possible debris in the posterior urinary bladder, and no definite bladder mass. nephrology consult was placed. CBC from today shows a WBC count 9.8, hemoglobin 11.3, hematocrit 36.3, platelets 339,000. Her BMP fr om today shows a sodium of 140, potassium 5, chloride 113, serum CO2 11, BUN 74, creatinine 4.87, glucose 315. She received 2 amps of sodium bicarbonate IV push, and she is receiving 3 amps of sodium bicarbonate in dextrose at 75 mL per hour. her procalcitonin was mildly elevated at 0.24. she is empirically receiving azithromycin and Rocephin. Her pro BNP was 11,400. Troponins are negative 1. vital signs remain stable at this time. her blood pressure is hypertensive and her home antihypertensive medications have been restarted, however, lisinopril is on hold due to her acute kidney injury. I'm reevaluating this patient today on 09/28/2022 in follow-up on a general medical floor. Patient is resting comfortably in bed, on 2 L nasal cannula, in no acute distress. A therapeutic left-sided thoracentesis was performed yesterday, and approximately 800 mL of anita colored fluid was removed. The fluid was sent for cytology, however, the fluid appears to be transudative. Follow-up chest x-ray from yesterday showed a persistent right upper lobe pulmonary mass, decrease in left pleural effusion without evidence of pneumothorax, and trace right pleural effusion. Patient is currently nothing by mouth in preparation for potential bronchoscopy today. There may be scheduling conflict, as oncology has ordered a bone scan at the same time today. If needed, we can schedule this bronchoscopy for tomorrow. Patient's CBC from today shows a WBC count of 8, hemoglobin 8.9, hematocrit 28.20, platelets 257,000. BMP today continues to show some acute renal failure with a sodium of 139, potassium 4, chloride 103, serum CO2 up to 20, BUN 74.9, creatinine 5, glucose 298. patient will probably have to be restarted on her home long-acting insulin in order to control her hyperglycemia. She continues to receive dextrose with 3 A of sodium bicarbonate at 75 mL per hour. Her procalcitonin was 0.24 yesterday, and she continues to be covered with empiric Rocephin. She continues receiving DuoNeb inhalations. Vital signs remain stable. Objective - Vital Signs Vital signs: Vital Signs Temp 98.3 F 09/28/22 07:25 Pulse 80 09/28/22 08:42 Resp 17 09/28/22 07:25 BP 152/63 09/28/22 07:25 Pulse Ox 96 09/28/22 07:25 FiO2 Intake & Output 09/27/22 09/28/22 09/28/22 18:59 06:59 18:59 Intake Total 240 Output Total 100 Balance -100 240 Weight 75.75 kg Intake: Oral 240 Output: Urine 100 Other: Voiding Method Bedside Commode Bedside Commode Bedside Commode # Voids 1 - Exam GENERAL EXAM: Alert, 67-year-old female, comfortable in no apparent distress. HEAD: Normocephalic and atraumatic EYES: Normal reaction of pupils, equal size. NOSE: Clear with pink turbinates. THROAT: No erythema or exudates. NECK: No masses, no JVD. CHEST: No chest wall deformity. LUNGS: Equal air entry with no crackles, wheeze, rhonchi or dullness. on 2 L nasal cannula. No conversational dyspnea or accessory muscle use. CVS: S1 and S2 normal with no audible murmur, regular rhythm. ABDOMEN: No hepatosplenomegaly, normal bowel sounds, no guarding or rigidity. SPINE: No scoliosis or deformity. no CVA tenderness. SKIN: No rashes CENTRAL NERVOUS SYSTEM: No focal deficits, tone is normal in all 4 extremities. EXTREMITIES: There is no peripheral edema, clubbing, or cyanosis. Peripheral pulses are intact. there is a left BKA - Labs CBC & Chem 7: 09/28/22 07:34 09/28/22 07:34 Labs: Abnormal Lab Results - Last 24 Hours (Table) 09/27/22 09/27/22 09/27/22 Range/Units 07:28 07:28 16:27 RBC (4.10-5.20) X 10*6/uL Hgb (12.0-15.0) g/dL Hct (37.2-46.3) % MCHC (32.0-37.0) g/dL Immature Gran # (0.00-0.04) X 10*3/uL Carbon Dioxide (20.0-27.5) mmol/L BUN (9.0-27.0) mg/dL Creatinine (0.6-1.5) mg/dL Est GFR (CKD-EPI)AfAm (60.0-200.0) Est GFR (CKD-EPI)NonAf (60.0-200.0) Glucose (70-110) mg/dL POC Glucose (mg/dL) 384 H (70-110) mg/dL Hemoglobin A1c 9.4 H (0.0-6.0) % Calcium (8.7-10.3) mg/dL Total Protein 5.5 L (6.2-8.2) g/dL 09/27/22 09/28/22 09/28/22 Range/Units 21:21 02:22 06:37 RBC (4.10-5.20) X 10*6/uL Hgb (12.0-15.0) g/dL Hct (37.2-46.3) % MCHC (32.0-37.0) g/dL Immature Gran # (0.00-0.04) X 10*3/uL Carbon Dioxide (20.0-27.5) mmol/L BUN (9.0-27.0) mg/dL Creatinine (0.6-1.5) mg/dL Est GFR (CKD-EPI)AfAm (60.0-200.0) Est GFR (CKD-EPI)NonAf (60.0-200.0) Glucose (70-110) mg/dL POC Glucose (mg/dL) 435 H 357 H 420 H (70-110) mg/dL Hemoglobin A1c (0.0-6.0) % Calcium (8.7-10.3) mg/dL Total Protein (6.2-8.2) g/dL 09/28/22 09/28/22 09/28/22 Range/Units 07:34 07:34 09:30 RBC 3.23 L (4.10-5.20) X 10*6/uL Hgb 8.9 L (12.0-15.0) g/dL Hct 28.2 L (37.2-46.3) % MCHC 31.6 L (32.0-37.0) g/dL Immature Gran # 0.05 H (0.00-0.04) X 10*3/uL Carbon Dioxide 19.8 L (20.0-27.5) mmol/L BUN 74.9 H (9.0-27.0) mg/dL Creatinine 5.0 H (0.6-1.5) mg/dL Est GFR (CKD-EPI)AfAm 9.6 L (60.0-200.0) Est GFR (CKD-EPI)NonAf 8.3 L (60.0-200.0) Glucose 394 H (70-110) mg/dL POC Glucose (mg/dL) 379 H (70-110) mg/dL Hemoglobin A1c (0.0-6.0) % Calcium 7.5 L (8.7-10.3) mg/dL Total Protein (6.2-8.2) g/dL 09/28/22 Range/Units 11:11 RBC (4.10-5.20) X 10*6/uL Hgb (12.0-15.0) g/dL Hct (37.2-46.3) % MCHC (32.0-37.0) g/dL Immature Gran # (0.00-0.04) X 10*3/uL Carbon Dioxide (20.0-27.5) mmol/L BUN (9.0-27.0) mg/dL Creatinine (0.6-1.5) mg/dL Est GFR (CKD-EPI)AfAm (60.0-200.0) Est GFR (CKD-EPI)NonAf (60.0-200.0) Glucose (70-110) mg/dL POC Glucose (mg/dL) 298 H (70-110) mg/dL Hemoglobin A1c (0.0-6.0) % Calcium (8.7-10.3) mg/dL Total Protein (6.2-8.2) g/dL Microbiology - Last 24 Hours (Table) 09/27/22 09:58 Gram Stain - Preliminary Pleural Fluid Body Fluid Culture - Preliminary 09/26/22 20:16 Blood Culture - Preliminary Blood No Growth after 24 hours 09/26/22 20:05 Blood Culture - Preliminary Blood No Growth after 24 hours 09/27/22 09:58 Anaerobic Culture - Preliminary Pleural Fluid 09/27/22 09:58 Fungal Culture - Preliminary Pleural Fluid 09/27/22 09:58 Acid Fast Bacilli Culture - Preliminary Pleural Fluid Assessment and Plan Assessment: large right lung mass with suspicious adenopathy. Pleural fluid was transudative. Fluid was sent for cytology. Plan was for bronchoscopy today, however, there may be scheduling conflict. We will proceed with bronchoscopy tomorrow. Large left pleural effusion. Improved post thoracentesis. acute kidney injury. hold nephrotoxic agents metabolic acidosis, secondary to above. Patient has received 2 ampules of sodium bicarbonate 8.4%, and has dextrose with 3 ampules of sodium bicarbonate 8.4% infusing at 75 mL per hour. 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 Has not started treatment yet. oncology has been consulted Insulin-dependent diabetes mellitus. hypertension Hyperlipidemia Current smoker. 100 pack years history of left BKA Plan: patient's medications, labs, non-enhanced chest CT, chest ultrasound, chest x- ray were all reviewed. continue supplemental oxygen to maintain oxygen saturation 92% or greater. Bronchoscopy tomorrow for biopsy nothing by mouth after midnight Encourage smoking cessation Continue with sodium bicarbonate infusion hold nephrotoxic agents we will add Levemir to gain better control of her hyperglycemia. continue DuoNeb inhalation we will continue to follow I have personally seen and examined the patient, performed the documentation and the assessment and plan as written. Number of minutes spent on the visit: 10 Time with Patient: Less than 30
--- NOTE | 2022-09-28 15:13 | NM ---
EXAMINATION TYPE: NM bone scan whole body DATE OF EXAM: 09/28/2022 COMPARISON: Correlation CT chest 09/27/2022 HISTORY: 67-year-old female, breast cancer, new lung mass Technique: Delayed whole-body scanning was performed following the injection of 22.5 mCi Tc 99m MDP. Images acquired 3 hours post injection. FINDINGS: We note a left [id number] amputation. Scattered degenerative tracer activity at both shoulders, s ternoclavicular joints, and right knee.. There is focal abnormal tracer activity posterior aspect of the left shoulder below the level of the glenohumeral joint, probably within the proximal, medial aspect of the humerus. Further radiographic correlation is advised. No other suspicious distribution of tracer activity on the bone survey. IMPRESSION: 1. Focal tracer activity posterior aspect of the left shoulder below the level of the glenohumeral genevieve int, possibly within the proximal left humerus. Recommend radiographic correlation to exclude bone me tastasis. 2. No other scintigraphic evidence for osseous metastatic disease.
[2022-09-28 16:42] LABS: Glucose,Whole Blood 449 mg/dL (70-110)
[2022-09-28 20:23] LABS: Glucose,Whole Blood 222 mg/dL (70-110)
[2022-09-29] MEDS: SODIUM CHLORIDE 0.45% 1,000 ML with SODIUM BICARB (1 MEQ/ML) 75 ML IV SCH ×2 (04:56)
[2022-09-29 06:09] LABS: Glucose,Whole Blood 138 mg/dL (70-110)
[2022-09-29] MEDS: IPRATROPIUM-ALBUTEROL 3 ML NEB INHALATION SCH ×4 (06:15→20:11)
[2022-09-29] MEDS: INSULIN ASPART (NovoLOG) 100 UNIT/ML VIAL SQ SCH ×8 (06:32→21:58)
[2022-09-29] MEDS: amLODIPine 10 MG TAB PO SCH (08:05)
[2022-09-29] MEDS: hydrALAZINE HCL 25 MG TAB PO SCH ×3 (08:05→22:35)
[2022-09-29] MEDS: FUROSEMIDE 10 MG/ML 4 ML VIAL IV SCH (11:06)
--- NOTE | 2022-09-29 11:10 | P.PN ---
Subjective Patient is seen in follow-up for acute kidney injury. Creatinine 5.0 yesterday. Beltran catheter placed. Urine output documented as 600 mL for overnight. Oral intake is poor. No vomiting or diarrhea. Vital signs are stable. General: Awake. No acute distress. HEENT: Head exam is unremarkable. On nasal cannula. LUNGS: Breath sounds decreased. HEART: Rate and Rhythm are regular. ABDOMEN: Soft, no distention. EXTREMITITES: BKA noted. No edema. Objective - Vital Signs Vital signs: Vital Signs Temp 97.7 F 09/29/22 07:29 Pulse 81 09/29/22 07:29 Resp 19 09/29/22 07:29 BP 149/77 09/29/22 07:29 Pulse Ox 90 L 09/29/22 07:29 FiO2 Intake & Output 09/28/22 09/29/22 09/29/22 18:59 06:59 18:59 Output Total 300 300 Balance -300 -300 Weight 75.75 kg Output: Urine 300 300 Uretheral (Beltran) 300 Other: Voiding Method Bedside Commode Indwelling Catheter Indwelling Catheter - Labs CBC & Chem 7: 09/28/22 07:34 09/28/22 07:34 Labs: Abnormal Lab Results - Last 24 Hours (Table) 09/28/22 09/28/22 09/28/22 Range/Units 07:34 11:11 16:41 Carbon Dioxide 19.8 L (20.0-27.5) mmol/L BUN 74.9 H (9.0-27.0) mg/dL Creatinine 5.0 H (0.6-1.5) mg/dL Est GFR (CKD-EPI)AfAm 9.6 L (60.0-200.0) Est GFR (CKD-EPI)NonAf 8.3 L (60.0-200.0) Glucose 394 H (70-110) mg/dL POC Glucose (mg/dL) 298 H 449 H (70-110) mg/dL Calcium 7.5 L (8.7-10.3) mg/dL 09/28/22 09/29/22 Range/Units 20:19 05:49 Carbon Dioxide (20.0-27.5) mmol/L BUN (9.0-27.0) mg/dL Creatinine (0.6-1.5) mg/dL Est GFR (CKD-EPI)AfAm (60.0-200.0) Est GFR (CKD-EPI)NonAf (60.0-200.0) Glucose (70-110) mg/dL POC Glucose (mg/dL) 222 H 138 H (70-110) mg/dL Calcium (8.7-10.3) mg/dL Microbiology - Last 24 Hours (Table) 09/27/22 09:58 Acid Fast Bacilli Smear - Final Pleural Fluid Acid Fast Bacilli Culture - Preliminary 09/26/22 20:16 Blood Culture - Preliminary Blood No Growth after 48 hours 09/26/22 20:05 Blood Culture - Preliminary Blood No Growth after 48 hours 09/27/22 09:58 Gram Stain - Preliminary Pleural Fluid Body Fluid Culture - Preliminary Assessment and Plan Plan: Assessment: 1. Acute kidney injury secondary to ATN versus progression of underlying chronic kidney disease. Creatinine 5 today. No hydronephrosis noted on kidney ultrasound. Creatinine on 09/21/2022 was 3.72. Unknown baseline renal function. 2. Bilateral pleural effusions status post left-sided thoracentesis with 800 mL drained. 3. History of breast cancer. Now noted to have right lung mass with concern for adrenal metastasis as well. Bone scan showed concern for metastatic disease in the glenohumeral joint. Bronchoscopy pending. 4. Metabolic acidosis secondary to acute kidney injury. Improved with bicarbonate drip. 5. Diabetes mellitus. 6. Anemia. Rule out iron deficiency. Plan: Hep-Lock IV fluids. Maintain Beltran catheter for now. Blood sugar control. Lasix added by pulmonary team today. Avoid nephrotoxins. Continue to monitor renal function and urine output. Follow-up iron studies. Continue to assess daily for need for renal replacement therapy. Patient agreeable to start if needed. Follow-up echocardiogram. UA not done. I will reorder.
[2022-09-29 11:37] LABS: Glucose,Whole Blood 238 mg/dL (70-110)
[2022-09-29 12:07] LABS: Appearance,Urine Clear (Clear); Bacteria,Urine Rare /hpf; Bilirubin,Urine Negative (Negative); Blood,Urine Negative (Negative); Color,Urine Light Yellow; Glucose,Urine (UA) Negative (Negative); Ketones,Urine Trace (Negative); Leukocyte Esterase,Urine Moderate (Negative); Mucus,Urine Rare /hpf; Nitrite,Urine Negative (Negative); PH, Urine 5.5 (5.0-8.0); Protein,Urine 2+ (Negative); RBC,Urine 22 /hpf (0-5); Specific Gravity,Urine 1.011 (1.001-1.035); Squamous Epithelial Cell,Urine <1 /hpf (0-4); Urobilinogen,Urine <2.0 mg/dL (<2.0); WBC,Urine 20 /hpf (0-5)
[2022-09-29 12:09] LABS: Basophils % (A) 0.9 %; Eosinophils # (A) 0.18 X 10*3/uL (0.04-0.35); Eosinophils % (A) 1.6 %; HGB 9.5 g/dL (12.0-15.0); Immature Grans, Automated 0.3 %; Lymphocytes # (A) 1.44 X 10*3/uL (0.90-5.00); Lymphocytes % (A) 12.5 %; MCH 28.1 pg (27.0-32.0); MCHC 31.7 g/dL (32.0-37.0); MCV 88.8 fL (80.0-97.0); Mean Platelet Volume 11.2 fL (9.5-12.2); Monocytes # (A) 1.04 X 10*3/uL (0.20-1.00); NRBC Per 100 WBC 0 /100 WBCS (0.0-0.0); Neutrophils # (A) 8.75 X 10*3/uL (1.80-7.70); Neutrophils % (A) 75.7 %; Platelet Count 314 X 10*3/uL (140-440); RBC 3.38 X 10*6/uL (4.10-5.20); RDW 14.4 % (11.5-14.5); WBC 11.55 X 10*3/uL (4.50-10.00)
[2022-09-29 12:29] LABS: % Iron Saturation 8.38 (12.00-45.00); Magnesium 1.9 mg/dL (1.5-2.4)
[2022-09-29 12:32] LABS: African American GFR (CKD) 8.5 (60.0-200.0); Anion Gap 18.3 mmol/L (10.00-18.00); BUN/Creat Ratio 13.67 Ratio (12.00-20.00); Blood Urea Nitrogen 75.2 mg/dL (9.0-27.0); Calcium 7.7 mg/dL (8.7-10.3); Carbon Dioxide 21.7 mmol/L (20.0-27.5); Non-African American GFR(CKD) 7.4 (60.0-200.0)
--- NOTE | 2022-09-29 12:49 | P.PN ---
Subjective this is a pleasant 67 years old female with past medical history of hypertension, hyperlipidemia, Bipolar, anxiety and depression, diabetes mellitus Patient was complaining of from dyspnea for about a week and her PCP Dr. Gutiérrez send her to emergency room. She denies cough no chest pain patient noticed decrease frequency and amount of urination recently She's been feeling dizziness for the last 3 months but no weakness or numbness. No GI symptoms like no vomiting diarrhea or abdominal pain Patient also follow up with Dr. dash for recently diagnosed left breast cancer as she states since last April. She is not on chemotherapy Vitals are stable, blood pressure elevated to 225/99, now improved 189/82 Labs including CBC is unremarkable. Creatinine is elevated 4.7 was 3.7 about 5 days ago There were enzymes are unremarkable, proBNP is elevated 11 600, troponin is negative. EKG showing normal sinus rhythm at [address]-T changes Increased right lower lobe airspace opacity correlated for developing pneumonia. Right upper lobe pulmonary suspected mass remains present. Seminal moderate left pleural effusion and trace right pleural effusion In the emergency room patient started on Zithromax and ceftriaxone and normal saline 100 mL/h. Bladder scan checks it was 270 09/28/2022 Patient still have mild dyspnea while she is lying in bed, she still also complained from low urine output and she is still constipated. She denies chest pain abdominal pain or headache, weakness or numbness. No report of GI bleed or blood in stool. Her vitals looks stable and she is saturating 95% and 2 L oxygen via nasal cannula. Her hemoglobin went down to 8.9 today while creatinine went up to 5, glucose was elevated, at times was taken Levemir 40 units and insulin sliding scale, because of her renal problem we lower the dose to 20 units daily. Currently on ceftriaxone and Zithromax and sodium bicarb. Blood pressure is better 152/60 through while she is on clonidine patch 0.2 on Norvasc 10 mg daily. And hydralazine 25 mg 3 times a day 09/29/2022 Patient is more short of breath Occasional coughing and no chest pain No other new complaints, Bone scan shows some uptake in the left upper extremity however patient denies a ny pain there is no restriction of movement, further recommendation defer to oncology team ordered a bone scan. Also patient planned to go bronchoscopy and biopsy by pulmonary team today. Creatinine worsened to 5.5 and nephrology assessing for possible and a pleasant therapy as indicated. Glucose is better controlled Objective - Vital Signs Vital signs: Vital Signs Temp 97.7 F 09/29/22 07:29 Pulse 84 09/29/22 11:42 Resp 19 09/29/22 07:29 BP 149/77 09/29/22 07:29 Pulse Ox 90 L 09/29/22 07:29 FiO2 Intake & Output 09/28/22 09/29/22 09/29/22 18:59 06:59 18:59 Output Total 300 300 Balance -300 -300 Weight 75.75 kg Output: Urine 300 300 Uretheral (Beltran) 300 Other: Voiding Method Bedside Commode Indwelling Catheter Indwelling Catheter - Exam GENERAL: The patient is alert and oriented x3, not in any acute distress. Well developed, well nourished. HEENT: Pupils are round and equally reacting to light. EOMI. No scleral icterus. No conjunctival pallor. Normocephalic, atraumatic. No pharyngeal erythema. No thyromegaly. CARDIOVASCULAR: S1 and S2 present. No murmurs, rubs, or gallops. PULMONARY: Chest is clear to auscultation, no wheezing or crackles. ABDOMEN: Soft, nontender, nondistended, normoactive bowel sounds. No palpable organomegaly. MUSCULOSKELETAL: No joint swelling or deformity. EXTREMITIES: No cyanosis, clubbing, or pedal edema. NEUROLOGICAL: Gross neurological examination did not reveal any focal deficits. SKIN: No rashes. no petechiae. - Labs CBC & Chem 7: 09/29/22 06:30 09/29/22 06:30 Labs: Abnormal Lab Results - Last 24 Hours (Table) 09/28/22 09/28/22 09/29/22 Range/Units 16:41 20:19 05:49 WBC (4.50-10.00) X 10*3/uL RBC (4.10-5.20) X 10*6/uL Hgb (12.0-15.0) g/dL Hct (37.2-46.3) % MCHC (32.0-37.0) g/dL Neutrophils # (1.80-7.70) X 10*3/uL Monocytes # (0.20-1.00) X 10*3/uL Anion Gap (10.00-18.00) mmol/L BUN (9.0-27.0) mg/dL Creatinine (0.6-1.5) mg/dL Est GFR (CKD-EPI)AfAm (60.0-200.0) Est GFR (CKD-EPI)NonAf (60.0-200.0) Glucose (70-110) mg/dL POC Glucose (mg/dL) 449 H 222 H 138 H (70-110) mg/dL Calcium (8.7-10.3) mg/dL Iron (50-170) ug/dL TIBC (228-460) ug/dL % Saturation (12.00-45.00) Transferrin (204.0-354.0) mg/dL Urine Protein (Negative) Urine Ketones (Negative) Ur Leukocyte Esterase (Negative) Urine RBC (0-5) /hpf Urine WBC (0-5) /hpf Urine Bacteria (None) /hpf Urine Mucus (None) /hpf 09/29/22 09/29/22 09/29/22 Range/Units 06:30 06:30 11:35 WBC 11.55 H (4.50-10.00) X 10*3/uL RBC 3.38 L (4.10-5.20) X 10*6/uL Hgb 9.5 L (12.0-15.0) g/dL Hct 30.0 L (37.2-46.3) % MCHC 31.7 L (32.0-37.0) g/dL Neutrophils # 8.75 H (1.80-7.70) X 10*3/uL Monocytes # 1.04 H (0.20-1.00) X 10*3/uL Anion Gap 18.30 H (10.00-18.00) mmol/L BUN 75.2 H (9.0-27.0) mg/dL Creatinine 5.5 H (0.6-1.5) mg/dL Est GFR (CKD-EPI)AfAm 8.5 L (60.0-200.0) Est GFR (CKD-EPI)NonAf 7.4 L (60.0-200.0) Glucose 152 H (70-110) mg/dL POC Glucose (mg/dL) 238 H (70-110) mg/dL Calcium 7.7 L (8.7-10.3) mg/dL Iron 19 L (50-170) ug/dL TIBC 227 L (228-460) ug/dL % Saturation 8.38 L (12.00-45.00) Transferrin 162.0 L (204.0-354.0) mg/dL Urine Protein (Negative) Urine Ketones (Negative) Ur Leukocyte Esterase (Negative) Urine RBC (0-5) /hpf Urine WBC (0-5) /hpf Urine Bacteria (None) /hpf Urine Mucus (None) /hpf 09/29/22 Range/Units 11:40 WBC (4.50-10.00) X 10*3/uL RBC (4.10-5.20) X 10*6/uL Hgb (12.0-15.0) g/dL Hct (37.2-46.3) % MCHC (32.0-37.0) g/dL Neutrophils # (1.80-7.70) X 10*3/uL Monocytes # (0.20-1.00) X 10*3/uL Anion Gap (10.00-18.00) mmol/L BUN (9.0-27.0) mg/dL Creatinine (0.6-1.5) mg/dL Est GFR (CKD-EPI)AfAm (60.0-200.0) Est GFR (CKD-EPI)NonAf (60.0-200.0) Glucose (70-110) mg/dL POC Glucose (mg/dL) (70-110) mg/dL Calcium (8.7-10.3) mg/dL Iron (50-170) ug/dL TIBC (228-460) ug/dL % Saturation (12.00-45.00) Transferrin (204.0-354.0) mg/dL Urine Protein 2+ H (Negative) Urine Ketones Trace H (Negative) Ur Leukocyte Esterase Moderate H (Negative) Urine RBC 22 H (0-5) /hpf Urine WBC 20 H (0-5) /hpf Urine Bacteria Rare H (None) /hpf Urine Mucus Rare H (None) /hpf Microbiology - Last 24 Hours (Table) 09/27/22 09:58 Anaerobic Culture - Preliminary Pleural Fluid 09/27/22 09:58 Acid Fast Bacilli Smear - Final Pleural Fluid Acid Fast Bacilli Culture - Preliminary 09/26/22 20:16 Blood Culture - Preliminary Blood No Growth after 48 hours 09/26/22 20:05 Blood Culture - Preliminary Blood No Growth after 48 hours 09/27/22 09:58 Gram Stain - Preliminary Pleural Fluid Body Fluid Culture - Preliminary Assessment and Plan Assessment: Acute renal failure Right upper lobe pulmonary mass suspected, Left pleural effusion, status post thoracocentesis Anemia History of left breast cancer diagnosed last April not on chemotherapy Possible acute diastolic CHF Right lower lobe opacities, less likely pneumonia Hypertension Hyperlipidemia Diabetes mellitus History of bipolar, anxiety, not in active tissue Surgery of left BKA Plan: pt is currently on normal saline 100 mL per hour [employer] consult follow-up Check renal ultrasound Consult oncology and pulmonary service IV hydralazine when necessary for blood pressure and monitor blood pressure closely. Start oral hydralazine and Norvasc Monitor hemoglobin and do anemia workup monitor creatinine and input and output, monitor blood pressure closely. Labs and medication were reviewed.. Continue same treatment. Continue with symptomatic treatment. Resume home medication. Monitor lytes and vitals. DVT and GI prophylaxis. Further recommendations as per clinical course of the patient DVT prophylaxis: Subcutaneous heparin GI Prophylaxis: Pepcid PT/OT: Pending
--- NOTE | 2022-09-29 13:01 | P.PN ---
Subjective Progress Note Date: 09/29/22 I'm evaluating this patient today on 09/27/2022 in regard to a new consult that was placed for a large right lung mass. The patient was directed to [facility] by her primary care physician Dr. Gutiérrez, after having shortness of breath for approximately 1 week. there is an associated nonproductive cough. Patient denies any hemoptysis, chest pain, fevers. Her pertinent medical history is positive for left breast ductal carcinoma diagnosed in April,. She apparently has not started treatment yet, and is waiting on a PET scan. She is a 2 pack per day smoker for approximately 50 years, has a history of a left BKA, hyperlipidemia, hypertension, diabetes mellitus, anxiety, bipolar, depression. no family history of lung cancer noted. her non-enhanced chest CT from today showed a posterior right lung mass with enlarged mediastinal adenopathy, some thickening of the left adrenal gland which could indicate metastasis or adenoma, and some small to moderate to moderate bilateral pleural effusions with compressive atelectasis adjacent to the left pleural effusion. Patient had a follow-up chest ultrasound which showed a moderate to large left pleural effusion, which will need to be drained for symptom relief and cytology. she is currently resting in bed, on 2 L nasal cannula, in no acute distress. she is receiving DuoNeb inhalation. renal ultrasound was also done yesterday on 0 09/26/2022 due to elevation in her creatinine which showed no evidence of renal mass or obstruction, some possible debris in the posterior urinary bladder, and no definite bladder mass. nephrology consult was placed. CBC from today shows a WBC count 9.8, hemoglobin 11.3, hematocrit 36.3, platelets 339,000. Her BMP from today shows a sodium of 140, potassium 5, chloride 113, serum CO2 11, BUN 74, creatinine 4.87, glucose 315. She received 2 amps of sodium bicarbonate IV push, and she is receiving 3 amps of sodium bicarbonate in dextrose at 75 mL per hour. her procalcitonin was mildly elevated at 0.24. she is empirically receiving azithromycin and Rocephin. Her pro BNP was 11,400. Troponins are negative 1. vital signs remain stable at this time. her blood pressure is hypertensive and her home antihypertensive medications have been restarted, however, lisinopril is on hold due to her acute kidney injury. I'm reevaluating this patient today on 09/28/2022 in follow-up on a general medical floor. Patient is resting comfortably in bed, on 2 L nasal cannula, in no acute distress. A therapeutic left-sided thoracentesis was performed yesterday, and approximately 800 mL of anita colored fluid was removed. The fluid was sent for cytology, however, the fluid appears to be transudative. Follow-up chest x-ray from yesterday showed a persistent right upper lobe pulmonary mass, decrease in left pleural effusion without evidence of pneumothorax, and trace right pleural effusion. Patient is currently nothing by mouth in preparation for potential bronchoscopy today. There may be scheduling conflict, as oncology has ordered a bone scan at the same time today. If needed, we can schedule this bronchoscopy for tomorrow. Patient's CBC from today shows a WBC count of 8, hemoglobin 8.9, hematocrit 28.20, platelets 257,000. BMP today continues to show some acute renal failure with a sodium of 139, potassium 4, chloride 103, serum CO2 up to 20, BUN 74.9, creatinine 5, glucose 298. patient will probably have to be restarted on her home long-acting insulin in order to control her hyperglycemia. She continues to receive dextrose with 3 A of sodium bicarbonate at 75 mL per hour. Her procalcitonin was 0.24 yesterday, and she continues to be covered with empiric Rocephin. She continues receiving DuoNeb inhalations. Vital signs remain stable. The patient is seen today 09/29/2022 in follow-up on the regular medical floor. She is currently resting fairly comfortably in bed. Awake and alert in no acute distress. Maintaining O2 saturations in the 90s on 2 L/m per nasal cannula. She's afebrile. Hemodynamically stable. She did undergo a left-sided thoracentesis on 09/27/2022. Pathology and cultures pending. A bone scan performed 09/28/2022 revealed focal tracer activity in the posterior aspect of the left shoulder below the level of the glenohumeral joint, possibly within the proximal left humerus. Cannot exclude bone metastasis. No other evidence of osseous metastatic disease. White count 11.5. Hemoglobin 9.5. Platelets 314. Sodium 144. Potassium 4.0. BUN 75. Creatinine 5.5. Glucose 152. Urinalysis with moderate leukocyte esterase, high WBCs, rare bacteria. She is currently on ceftriaxone. Remains on bronchodilators. Continued on IV diuretics. Objective - Vital Signs Vital signs: Vital Signs Temp 97.7 F 09/29/22 07:29 Pulse 84 09/29/22 11:42 Resp 19 09/29/22 07:29 BP 149/77 09/29/22 07:29 Pulse Ox 90 L 09/29/22 07:29 FiO2 Intake & Output 09/28/22 09/29/22 09/29/22 18:59 06:59 18:59 Output Total 300 300 Balance -300 -300 Weight 75.75 kg Output: Urine 300 300 Uretheral (Beltran) 300 Other: Voiding Method Bedside Commode Indwelling Catheter Indwelling Catheter - Exam GENERAL EXAM: Alert, 67-year-old female, on 2 L nasal cannula, fairly comfo rtable in no apparent distress. HEAD: Normocephalic and atraumatic EYES: Normal reaction of pupils, equal size. NOSE: Clear with pink turbinates. THROAT: No erythema or exudates. NECK: No masses, no JVD. CHEST: No chest wall deformity. LUNGS: Equal air entry with few scattered rhonchi. No conversational dyspnea or accessory muscle use. CVS: S1 and S2 normal with no audible murmur, regular rhythm. ABDOMEN: No hepatosplenomegaly, normal bowel sounds, no guarding or rigidity. SPINE: No scoliosis or deformity. no CVA tenderness. SKIN: No rashes CENTRAL NERVOUS SYSTEM: No focal deficits, tone is normal in all 4 extremities. EXTREMITIES: There is no peripheral edema, clubbing, or cyanosis. Peripheral pulses are intact. there is a left BKA - Labs CBC & Chem 7: 09/29/22 06:30 09/29/22 06:30 Labs: Abnormal Lab Results - Last 24 Hours (Table) 09/28/22 09/28/22 09/29/22 Range/Units 16:41 20:19 05:49 WBC (4.50-10.00) X 10*3/uL RBC (4.10-5.20) X 10*6/uL Hgb (12.0-15.0) g/dL Hct (37.2-46.3) % MCHC (32.0-37.0) g/dL Neutrophils # (1.80-7.70) X 10*3/uL Monocytes # (0.20-1.00) X 10*3/uL Anion Gap (10.00-18.00) mmol/L BUN (9.0-27.0) mg/dL Creatinine (0.6-1.5) mg/dL Est GFR (CKD-EPI)AfAm (60.0-200.0) Est GFR (CKD-EPI)NonAf (60.0-200.0) Glucose (70-110) mg/dL POC Glucose (mg/dL) 449 H 222 H 138 H (70-110) mg/dL Calcium (8.7-10.3) mg/dL Iron (50-170) ug/dL TIBC (228-460) ug/dL % Saturation (12.00-45.00) Transferrin (204.0-354.0) mg/dL Urine Protein (Negative) Urine Ketones (Negative) Ur Leukocyte Esterase (Negative) Urine RBC (0-5) /hpf Urine WBC (0-5) /hpf Urine Bacteria (None) /hpf Urine Mucus (None) /hpf 09/29/22 09/29/22 09/29/22 Range/Units 06:30 06:30 11:35 WBC 11.55 H (4.50-10.00) X 10*3/uL RBC 3.38 L (4.10-5.20) X 10*6/uL Hgb 9.5 L (12.0-15.0) g/dL Hct 30.0 L (37.2-46.3) % MCHC 31.7 L (32.0-37.0) g/dL Neutrophils # 8.75 H (1.80-7.70) X 10*3/uL Monocytes # 1.04 H (0.20-1.00) X 10*3/uL Anion Gap 18.30 H (10.00-18.00) mmol/L BUN 75.2 H (9.0-27.0) mg/dL Creatinine 5.5 H (0.6-1.5) mg/dL Est GFR (CKD-EPI)AfAm 8.5 L (60.0-200.0) Est GFR (CKD-EPI)NonAf 7.4 L (60.0-200.0) Glucose 152 H (70-110) mg/dL POC Glucose (mg/dL) 238 H (70-110) mg/dL Calcium 7.7 L (8.7-10.3) mg/dL Iron 19 L (50-170) ug/dL TIBC 227 L (228-460) ug/dL % Saturation 8.38 L (12.00-45.00) Transferrin 162.0 L (204.0-354.0) mg/dL Urine Protein (Negative) Urine Ketones (Negative) Ur Leukocyte Esterase (Negative) Urine RBC (0-5) /hpf Urine WBC (0-5) /hpf Urine Bacteria (None) /hpf Urine Mucus (None) /hpf 09/29/22 Range/Units 11:40 WBC (4.50-10.00) X 10*3/uL RBC (4.10-5.20) X 10*6/uL Hgb (12.0-15.0) g/dL Hct (37.2-46.3) % MCHC (32.0-37.0) g/dL Neutrophils # (1.80-7.70) X 10*3/uL Monocytes # (0.20-1.00) X 10*3/uL Anion Gap (10.00-18.00) mmol/L BUN (9.0-27.0) mg/dL Creatinine (0.6-1.5) mg/dL Est GFR (CKD-EPI)AfAm (60.0-200.0) Est GFR (CKD-EPI)NonAf (60.0-200.0) Glucose (70-110) mg/dL POC Glucose (mg/dL) (70-110) mg/dL Calcium (8.7-10.3) mg/dL Iron (50-170) ug/dL TIBC (228-460) ug/dL % Saturation (12.00-45.00) Transferrin (204.0-354.0) mg/dL Urine Protein 2+ H (Negative) Urine Ketones Trace H (Negative) Ur Leukocyte Esterase Moderate H (Negative) Urine RBC 22 H (0-5) /hpf Urine WBC 20 H (0-5) /hpf Urine Bacteria Rare H (None) /hpf Urine Mucus Rare H (None) /hpf Microbiology - Last 24 Hours (Table) 09/27/22 09:58 Anaerobic Culture - Preliminary Pleural Fluid 09/27/22 09:58 Acid Fast Bacilli Smear - Final Pleural Fluid Acid Fast Bacilli Culture - Preliminary 09/26/22 20:16 Blood Culture - Preliminary Blood No Growth after 48 hours 09/26/22 20:05 Blood Culture - Preliminary Blood No Growth after 48 hours 09/27/22 09:58 Gram Stain - Preliminary Pleural Fluid Body Fluid Culture - Preliminary Assessment and Plan Assessment: Large right lung mass with suspicious adenopathy. Pleural fluid was transudative. Total protein 2.6. LDH 129. Fluid was sent for cytology. Plan is for navigational bronchoscopy with biopsies today Large left pleural effusion. Improved post thoracentesis. 800 ML's of anita colored fluid removed Acute kidney injury. hold nephrotoxic agents Metabolic acidosis, secondary to above. Patient has received 2 ampules of sodium bicarbonate 8.4%, and has dextrose with 3 ampules of sodium bicarbonate 8.4% infusing at 75 mL per hour. 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 Has not started treatment yet. Oncology has been consulted Insulin-dependent diabetes mellitus. Hypertension Hyperlipidemia Current smoker. 100 pack years History of left BKA Plan: The patient was seen and evaluated Bone scan, medications and labs reviewed Plan is for navigational bronchoscopy with biopsies today Initiated on IV diuretics Titrate the FiO2 as tolerated Overall prognosis is guarded We'll continue to follow I have personally seen and examined the patient, performed the documentation and the assessment and plan as written. Number of minutes spent on the visit: 10.
[2022-09-29 13:38] LABS: Glucose,Whole Blood 222 mg/dL (70-110)
[2022-09-29] MEDS ORDERED: LACTATED RINGERS 1,000 ML IV ONE (13:38)
[2022-09-29] MEDS ORDERED: ROCURONIUM 10 MG/ML (5 ML VIAL) IV ONE (13:42)
[2022-09-29] MEDS ORDERED: fentaNYL (PF) 50 MCG/ML 2 ML AMP ONE (13:42)
[2022-09-29] MEDS ORDERED: SUCCINYLCHOLINE CHLORIDE 200 MG/10 ML VIAL IV ONE (13:42)
[2022-09-29] MEDS ORDERED: PROPOFOL 10 MG/ML 20 ML VIAL IV ONE (13:42)
[2022-09-29] MEDS ORDERED: GLYCOPYRROLATE 0.2 MG/ML 2 ML VIAL ONE (13:42)
[2022-09-29] MEDS ORDERED: SUGAMMADEX SODIUM 200 MG/2 ML SDV IV ONE (13:42)
[2022-09-29] MEDS ORDERED: LIDOCAINE 2% INJ 20 MG/ML (2 ML VIAL) ONE (13:42)
[2022-09-29] MEDS ORDERED: ePHEDrine 50 MG/ML 1 ML VIAL ONE (13:42)
[2022-09-29] MEDS ORDERED: MIDAZOLAM 2 MG/2 ML VIAL ONE (13:42)
--- NOTE | 2022-09-29 13:49 | CT ---
Exam: CT Chest without contrast. Date: 09/29/2022. Comparison: 09/27/2022. History: Bronchoscopy. Navigational study. Technique: CT examination of the chest was performed without contrast. Coronal and sagittal reformats were performed. CT dose lowering techniques were used, to include: automated exposure control, adjus tment for patient size, and/or use of iterative reconstruction. FINDINGS: CHEST WALL: There is a soft tissue mass in the lateral left breast measuring 3.8 x 2.5 cm in diameter . Additional adjacent soft left breast measures 2.1 cm in diameter. These raise the suspicion of erick gnancy. Dedicated breast imaging is recommended for further evaluation. Mediastinum and Mariaelena: There is a left thyroid nodule measuring 8 cm in diameter. This is unchanged. M ediastinal and right hilar adenopathy is unchanged. Pleural and Pericardial spaces: There are large bilateral pleural effusions which is unchanged on the left and slightly increased on the right when compared to the previous examination. Upper Abdomen: Visualized upper abdomen shows a hypoattenuating mass within the anterior aspect of th e left lobe of the liver that measures approximately 2.5 cm in diameter and could potentially represe nt a metastasis. Remainder the visualized upper abdomen is unremarkable. The adrenals are not include d on this examination as a adrenal nodule is seen on the left adrenal gland on the prior study. Cardiovascular: The thoracic aorta is normal in size without evidence of aneurysmal dilation. There i s mild vascular calcification aortic arch. There is severe diffuse coronary artery calcifications. Pulmonary Artery: Pulmonary arteries normal in size. Lung Parenchyma and Airways: There is a soft tissue mass within the right upper lobe measuring 4.4 x 3.6 cm in diameter which is most likely malignancy and unchanged since the previous examination. Ther e is a pleural-based nodule in the right upper lobe measuring 1.1 cm on series 11 image 35. There is compressive atelectasis of the lower lobes bilaterally. Bones: No fracture or aggressive osseous lesion. IMPRESSION: 1. Large right upper lobe mass is most likely malignancy. 2. Large bilateral pleural effusions which is very similar on the left and slightly increased on the right when compared to the previous examination. 3. Soft tissue masses in the lateral left breast are suspicious for malignancy. Further workup with d edicated breast imaging is recommended if not already performed. 4. Small hypoattenuating mass within the left lobe of the liver would raise the suspicion of a metast asis.
--- NOTE | 2022-09-29 16:00 | XR ---
EXAMINATION TYPE: XR chest 1V DATE OF EXAM: 09/29/2022 COMPARISON: 09/27/2022 HISTORY: 67 year-old female post bronchoscopy TECHNIQUE: Single frontal view of the chest is obtained. FINDINGS: Navigation leads project over the chest. Heart normal size. Underlying small left and trac e right pleural effusions with adjacent density. Medial right upper lobe density redemonstrated. No a ppreciable pneumothorax. IMPRESSION: 1. Known medial right upper lobe mass. No appreciable pneumothorax. 2. Ongoing [id number] left and small right pleural effusions with adjacent atelectasis and/or consolidation. 3. Background COPD.
[2022-09-29] MEDS: SODIUM FERRIC GLUCONAT-SUCROSE 125 MG in SODIUM CHLORIDE 0.9% 100 ML IVPB SCH (16:41)
[2022-09-29 16:44] LABS: Glucose,Whole Blood 265 mg/dL (70-110)
--- NOTE | 2022-09-29 19:49 | OP ---
This operative report was modified from original operative report, and the patient underwent Marte needle aspiration of station 10 R lymph nodes not 7Rlymph nodes. OPERATIVE REPORT PROCEDURES PERFORMED: Navigational bronchoscopy, multiple transbronchial biopsies of right upper lobe mass, brushings of the right upper lobe mass, washings and lavage of the right upper lobe mass, Marte needle aspirations of the station 10R, multiple Marte needle aspirations and core biopsies were done from 10R station. PULLING UNIT FLOORHAND: Cyndie Sales ANESTHESIA USED: General anesthesia. DESCRIPTION OF PROCEDURE: The patient underwent CT scan based on Veran protocol. The patient was sent back to the preoperative area. She was later sent to the bronchoscopy suite. In the meantime, we reviewed CT scan of the chest, mapping was done, and the mapping was exported or imported into the [facility] system into the operating room. After adequate anesthesia and the patient was intubated by TWO NEEDLE MACHINE OPERATOR, we monitored her O2 saturation continuously, blood pressure was intermittently monitored, and cardiac rhythm was continuously monitored. Then the bronchoscope was advanced through the adapter of the endotracheal tube, and examination of the right upper lobe, right middle lobe, right lower lobe, left upper lobe, lingula, and left lower lobe was done. No evidence of any endobronchial lesions noted. Then, using the Veran system, I was able to identify the sultana, the main sultana and the secondary sultana on the left side. I then went back into the right upper lobe, and multiple transbronchial biopsies were done using the navigational system, it was very difficult to get into the center of the lesion of the right upper lobe, mostly because of the location and could not angulate enough into the right upper lobe the tumor, but I was able to take biopsies from the periphery of the tumor. Then brushings of the right upper lobe lesion were done. Washings and lavage of the right upper lobe were done. After all this was done, then I was able to go down to the sultana, on multiple Marte needle aspirations and core biopsies done from station 10R. The pathologist was able to see to see atypical cells on the specimen, could not specifically call it, then no more biopsies were done. Procedure was well tolerated, no evidence of any complication. The patient was sent back to her room on the 4th floor. MMODL / IJN: [id number] / [facility]
[2022-09-29 21:11] LABS: Glucose,Whole Blood 345 mg/dL (70-110)
[2022-09-29] MEDS: INSULIN DETEMIR (LEVEMIR) 100 UNIT/ML SYR SQ SCH (21:58)
[2022-09-29] MEDS: ONDANSETRON 4 MG/2 ML VIAL IVP PRN (22:28)
[2022-09-30] MEDS: IPRATROPIUM-ALBUTEROL 3 ML NEB INHALATION PRN (04:57)
[2022-09-30 06:07] LABS: Glucose,Whole Blood 260 mg/dL (70-110)
[2022-09-30] MEDS: INSULIN ASPART (NovoLOG) 100 UNIT/ML VIAL SQ SCH ×8 (06:30→21:19)
[2022-09-30] MEDS: hydrALAZINE HCL 25 MG TAB PO SCH ×3 (08:06→21:19)
[2022-09-30] MEDS: amLODIPine 10 MG TAB PO SCH (08:06)
[2022-09-30] MEDS: FUROSEMIDE 10 MG/ML 4 ML VIAL IV SCH (08:09)
[2022-09-30] MEDS: SODIUM FERRIC GLUCONAT-SUCROSE 125 MG in SODIUM CHLORIDE 0.9% 100 ML IVPB SCH (08:10)
[2022-09-30 08:20] LABS: African American GFR (CKD) 8 (>60 ml/min/1.73 sqM); Anion Gap 14 mmol/L; Blood Urea Nitrogen 91 mg/dL (7-17); Calcium 7.2 mg/dL (8.4-10.2); Carbon Dioxide 18 mmol/L (22-30); Chloride 107 mmol/L (98-107); Glucose 208 mg/dL (74-99); Magnesium 1.9 mg/dL (1.6-2.3); Non-African American GFR(CKD) 7 (>60 ml/min/1.73 sqM); Sodium 139 mmol/L (137-145)
[2022-09-30] MEDS: IPRATROPIUM-ALBUTEROL 3 ML NEB INHALATION SCH ×4 (08:29→20:37)
[2022-09-30 08:30] LABS: Potassium 4.4 mmol/L (3.5-5.1)
[2022-09-30 08:35] LABS: Basophils # (A) 0.1 k/uL (0-0.2); Basophils % (A) 1 %; Eosinophils # (A) 0.1 k/uL (0-0.7); Eosinophils % (A) 1 %; HCT 29.2 % (34.0-46.0); Lymphocytes # (A) 0.8 k/uL (1.0-4.8); Lymphocytes % (A) 7 %; MCH 28.3 pg (25.0-35.0); MCHC 32.9 g/dL (31.0-37.0); MCV 85.9 fL (80.0-100.0); Mean Platelet Volume 8.8; Monocytes # (A) 0.7 k/uL (0-1.0); Monocytes % (A) 6 %; Neutrophils % (A) 84 %; Platelet Count 300 k/uL (150-450); Poikilocytosis Slight; RDW 14.5 % (11.5-15.5); WBC 10.8 k/uL (3.8-10.6)
[2022-09-30 08:36] LABS: HGB 9.6 gm/dL (11.4-16.0)
--- NOTE | 2022-09-30 09:51 | CA ---
Transthoracic Echo Report Name: April Enrique Age: 67 Gender: F : 1955 Exam Date: 09/29/2022 10:53 Exam Location: [facility] Ht (in): 65 Wt (lb): 167 Ordering Physician: Tobi Cummings MD Attending/Referring Phys: [id number], Emiliano [employer] Marilee Hughes RDCS Procedure CPT: Indications: Rule out heart disease Cardiac Hx: Technical Quality: Fair Contrast 1: Total Dose (mL): Contrast 2: Total Dose (mL): MEASUREMENTS (Male / Female) Normal Values 2D ECHO LV Diastolic Diameter PLAX 3.3 cm 4.2 - 5.9 / 3.9 - 5.3 cm LV Systolic Diameter PLAX 2.0 cm IVS Diastolic Thickness 1.5 cm 0.6 - 1.0 / 0.6 - 0.9 cm LVPW Diastolic Thickness 1.3 cm 0.6 - 1.0 / 0.6 - 0.9 cm LV Relative Wall Thickness 0.8 LA Volume 49.3 cm??? 18 - 58 / 22 - 52 cm??? M-MODE Aortic Root Diameter MM 3.0 cm LA Systolic Diameter MM 6.0 cm LA Ao Ratio MM 2.0 AV Cusp Separation MM 2.0 cm DOPPLER AV Peak Velocity 150.1 cm/s AV Peak Gradient 9.0 mmHg LVOT Peak Velocity 119.1 cm/s LVOT Peak Gradient 5.7 mmHg MV Area PHT 3.6 cm??? Mitral E Point Velocity 95.3 cm/s Mitral A Point Velocity 120.0 cm/s Mitral E to A Ratio 0.8 MV Deceleration Time 213.5 ms TR Peak Velocity 225.9 cm/s TR Peak Gradient 20.4 mmHg Right Ventricular Systolic Press 25.4 mmHg FINDINGS Left Ventricle Moderately increased septal wall thickness. Mildly increased posterior wall thickness. Normal left ventricular systolic function with no obvious regional wall motion abnormalities. Left ventricular cavity size normal. Left ventricular ejection fraction is estimated at 55 %. Right Ventricle Right ventricle not well visualized. Right ventricular systolic pressure within normal limits. Right Atrium Normal right atrial size. Left Atrium Normal left atrial size. Mitral Valve No mitral stenosis. Mild mitral regurgitation. Aortic Valve No aortic stenosis. No aortic regurgitation. Tricuspid Valve Mild tricuspid regurgitation. Pulmonic Valve Trace pulmonic regurgitation. Pericardium No pericardial effusion. Aorta Normal size aortic root and proximal ascending aorta. CONCLUSIONS Normal LV systolic function Mild mitral regurgitation Previewed by: Dr. George Alfaro MD (Electronically Signed) Final Date: 30 September 2022 09:50
[2022-09-30 11:46] LABS: Glucose,Whole Blood 158 mg/dL (70-110)
--- NOTE | 2022-09-30 12:09 | P.PN ---
Subjective Progress Note Date: 09/30/22 Principal diagnosis: Follow-up off off chronic kidney disease with unknown baseline creatinine was 2.7 on admission and has been going up. Patient is known with long history of diabetes, urinalysis shows 2+ protein not quantified. She was admitted because of upper respiratory infection which was not responding. Additionally she had history of lung cancer under oncology with a lung mass with a computed tomography scan showing large right upper lobe mass, large bilateral pleural effusions soft tissue mass in the left breast possible malignancy and possibly liver metastases on 09/29/2022 yesterday. Further in Medicine bone scan shows possible left shoulder area metastatic disease She had thoracentesis done yesterday Vital signs are stable afebrile. Urine output is recorded at 200 mL. She says she is sleepy but arousable. History of present illness: The patient is a 67-year-old female seen in consultation for acute kidney injury. Patient's creatinine is a 09/21/2022 was 3.7 to and is 4.7-4.8 this admission. Unknown baseline renal function. Patient does not follow with a naval engineer outpatient and denies any personal or family history of renal disease. Patient does have long-standing history of diabetes. Bases states she was treated for upper respiratory infection with antibiotics outpatient and had no improvement in symptoms. She was seen by her PCP yesterday and was advised to go to the hospital. Patient was diagnosed with breast cancer last year and is being worked up by oncology. She is noted to have a lung mass. She did undergo thoracentesis this morning was 750 mL drained. She was taking lisinopril as well as triamterene/hctz at home which are currently held. She is receiving IV fluids. Acidosis is worse. Patient states she has been voiding. Denies hematuria. Denies use of nonsteroidals. No vomiting or diarrhea. No chest pain or shortness of breath. Objective - Vital Signs Vital signs: Vital Signs Temp 97.8 F 09/30/22 07:53 Pulse 84 09/30/22 08:38 Resp 16 09/30/22 08:00 BP 121/69 09/30/22 07:53 Pulse Ox 93 L 09/30/22 08:29 FiO2 Intake & Output 09/29/22 09/30/22 09/30/22 18:59 06:59 18:59 Intake Total 600 Output Total 200 Balance 400 Intake: IV 600 Output: Urine 200 Other: Voiding Method Indwelling Catheter Indwelling Catheter On examination arousable but sleepy No JVP noted neck is supple no facial asymmetry Lungs are significant for wheezing bilaterally with fairly good air entry. Heart sounds unremarkable Abdomen soft nontender Extremity exam was no edema she has a remote BKA on the left per graph neurologically sleepy - Labs CBC & Chem 7: 09/30/22 08:13 09/30/22 07:24 Labs: Abnormal Lab Results - Last 24 Hours (Table) 09/29/22 09/29/22 09/29/22 Range/Units 06:30 06:30 11:40 WBC 11.55 H (4.50-10.00) X 10*3/uL RBC 3.38 L (4.10-5.20) X 10*6/uL Hgb 9.5 L (12.0-15.0) g/dL Hct 30.0 L (37.2-46.3) % MCHC 31.7 L (32.0-37.0) g/dL Neutrophils # 8.75 H (1.80-7.70) X 10*3/uL Lymphocytes # (1.0-4.8) k/uL Monocytes # 1.04 H (0.20-1.00) X 10*3/uL Carbon Dioxide (22-30) mmol/L Anion Gap 18.30 H (10.00-18.00) mmol/L BUN 75.2 H (9.0-27.0) mg/dL Creatinine 5.5 H (0.6-1.5) mg/dL Est GFR (CKD-EPI)AfAm 8.5 L (60.0-200.0) Est GFR (CKD-EPI)NonAf 7.4 L (60.0-200.0) Glucose 152 H (70-110) mg/dL POC Glucose (mg/dL) (70-110) mg/dL Calcium 7.7 L (8.7-10.3) mg/dL Iron 19 L (50-170) ug/dL TIBC 227 L (228-460) ug/dL % Saturation 8.38 L (12.00-45.00) Transferrin 162.0 L (204.0-354.0) mg/dL CA 15-3 Antigen (0.0-32.3) U/mL Urine Protein 2+ H (Negative) Urine Ketones Trace H (Negative) Ur Leukocyte Esterase Moderate H (Negative) Urine RBC 22 H (0-5) /hpf Urine WBC 20 H (0-5) /hpf Urine Bacteria Rare H (None) /hpf Urine Mucus Rare H (None) /hpf 09/29/22 09/29/22 09/29/22 Range/Units 13:34 16:42 17:24 WBC (4.50-10.00) X 10*3/uL RBC (4.10-5.20) X 10*6/uL Hgb (12.0-15.0) g/dL Hct (37.2-46.3) % MCHC (32.0-37.0) g/dL Neutrophils # (1.80-7.70) X 10*3/uL Lymphocytes # (1.0-4.8) k/uL Monocytes # (0.20-1.00) X 10*3/uL Carbon Dioxide (22-30) mmol/L Anion Gap (10.00-18.00) mmol/L BUN (9.0-27.0) mg/dL Creatinine (0.6-1.5) mg/dL Est GFR (CKD-EPI)AfAm (60.0-200.0) Est GFR (CKD-EPI)NonAf (60.0-200.0) Glucose (70-110) mg/dL POC Glucose (mg/dL) 222 H 265 H (70-110) mg/dL Calcium (8.7-10.3) mg/dL Iron (50-170) ug/dL TIBC (228-460) ug/dL % Saturation (12.00-45.00) Transferrin (204.0-354.0) mg/dL CA 15-3 Antigen 73.1 H (0.0-32.3) U/mL Urine Protein (Negative) Urine Ketones (Negative) Ur Leukocyte Esterase (Negative) Urine RBC (0-5) /hpf Urine WBC (0-5) /hpf Urine Bacteria (None) /hpf Urine Mucus (None) /hpf 09/29/22 09/30/22 09/30/22 Range/Units 21:10 06:05 07:24 WBC (4.50-10.00) X 10*3/uL RBC (4.10-5.20) X 10*6/uL Hgb (12.0-15.0) g/dL Hct (37.2-46.3) % MCHC (32.0-37.0) g/dL Neutrophils # (1.80-7.70) X 10*3/uL Lymphocytes # (1.0-4.8) k/uL Monocytes # (0.20-1.00) X 10*3/uL Carbon Dioxide 18 L (22-30) mmol/L Anion Gap (10.00-18.00) mmol/L BUN 91 H (9.0-27.0) mg/dL Creatinine 5.69 H (0.6-1.5) mg/dL Est GFR (CKD-EPI)AfAm (60.0-200.0) Est GFR (CKD-EPI)NonAf (60.0-200.0) Glucose 208 H (70-110) mg/dL POC Glucose (mg/dL) 345 H 260 H (70-110) mg/dL Calcium 7.2 L (8.7-10.3) mg/dL Iron (50-170) ug/dL TIBC (228-460) ug/dL % Saturation (12.00-45.00) Transferrin (204.0-354.0) mg/dL CA 15-3 Antigen (0.0-32.3) U/mL Urine Protein (Negative) Urine Ketones (Negative) Ur Leukocyte Esterase (Negative) Urine RBC (0-5) /hpf Urine WBC (0-5) /hpf Urine Bacteria (None) /hpf Urine Mucus (None) /hpf 09/30/22 09/30/22 Range/Units 08:13 11:44 WBC 10.8 H (4.50-10.00) X 10*3/uL RBC 3.40 L (4.10-5.20) X 10*6/uL Hgb 9.6 L D (12.0-15.0) g/dL Hct 29.2 L (37.2-46.3) % MCHC (32.0-37.0) g/dL Neutrophils # 9.0 H (1.80-7.70) X 10*3/uL Lymphocytes # 0.8 L (1.0-4.8) k/uL Monocytes # (0.20-1.00) X 10*3/uL Carbon Dioxide (22-30) mmol/L Anion Gap (10.00-18.00) mmol/L BUN (9.0-27.0) mg/dL Creatinine (0.6-1.5) mg/dL Est GFR (CKD-EPI)AfAm (60.0-200.0) Est GFR (CKD-EPI)NonAf (60.0-200.0) Glucose (70-110) mg/dL POC Glucose (mg/dL) 158 H (70-110) mg/dL Calcium (8.7-10.3) mg/dL Iron (50-170) ug/dL TIBC (228-460) ug/dL % Saturation (12.00-45.00) Transferrin (204.0-354.0) mg/dL CA 15-3 Antigen (0.0-32.3) U/mL Urine Protein (Negative) Urine Ketones (Negative) Ur Leukocyte Esterase (Negative) Urine RBC (0-5) /hpf Urine WBC (0-5) /hpf Urine Bacteria (None) /hpf Urine Mucus (None) /hpf Microbiology - Last 24 Hours (Table) 09/27/22 09:58 Gram Stain - Preliminary Pleural Fluid Body Fluid Culture - Preliminary 09/26/22 20:05 Blood Culture - Preliminary Blood No Growth after 72 hours 09/26/22 20:16 Blood Culture - Preliminary Blood No Growth after 72 hours 09/27/22 09:58 Anaerobic Culture - Preliminary Pleural Fluid Assessment and Plan Assessment: Impression 1. Worsening kidney disease, likely diabetic nephropathy with 2+ proteinuria not quantified no baseline creatinine available. Creatinine went up from 4.75- 5.69 or the last 4 days. She has a Beltran catheter 2. Left pleural effusion status post centesis 3. Bronchoscopy 09/29/2022 4. History of left breast cancer on chemotherapy 5. Lung mass with possible other metastatic disease. 6. COPD 7. Anemia with iron deficiency on Ferrlecit or 3 days started 09/29/2022 Recommendation 1. Discussed with patient possible need for dialysis this admission. No urgent need for dialysis today. 2. Maintain current medications and we'll watch it. 3. Check urine and serum immunoelectrophoresis. 4. Her intake is poor and there is no clinical evidence of pulmonary edema and therefore suggests hold Lasix. He merely introduce it if necessary
--- NOTE | 2022-09-30 12:52 | P.PN ---
Subjective Progress Note Date: 09/30/22 I'm evaluating this patient today on 09/27/2022 in regard to a new consult that was placed for a large right lung mass. The patient was directed to [facility] by her primary care physician Dr. Gutiérrez, after having shortness of breath for approximately 1 week. there is an associated nonproductive cough. Patient denies any hemoptysis, chest pain, fevers. Her pertinent medical history is positive for left breast ductal carcinoma diagnosed in April,. She apparently has not started treatment yet, and is waiting on a PET scan. She is a 2 pack per day smoker for approximately 50 years, has a history of a left BKA, hyperlipidemia, hypertension, diabetes mellitus, anxiety, bipolar, depression. no family history of lung cancer noted. her non-enhanced chest CT from today showed a posterior right lung mass with enlarged mediastinal adenopathy, some thickening of the left adrenal gland which could indicate metastasis or adenoma, and some small to moderate to moderate bilateral pleural effusions with compressive atelectasis adjacent to the left pleural effusion. Patient had a follow-up chest ultrasound which showed a moderate to large left pleural effusion, which will need to be drained for symptom relief and cytology. she is currently resting in bed, on 2 L nasal cannula, in no acute distress. she is receiving DuoNeb inhalation. renal ultrasound was also done yesterday on 0 09/26/2022 due to elevation in her creatinine which showed no evidence of renal mass or obstruction, some possible debris in the posterior urinary bladder, and no definite bladder mass. nephrology consult was placed. CBC from today shows a WBC count 9.8, hemoglobin 11.3, hematocrit 36.3, platelets 339,000. Her BMP from today shows a sodium of 140, potassium 5, chloride 113, serum CO2 11, BUN 74, creatinine 4.87, glucose 315. She received 2 amps of sodium bicarbonate IV push, and she is receiving 3 amps of sodium bicarbonate in dextrose at 75 mL per hour. her procalcitonin was mildly elevated at 0.24. she is empirically receiving azithromycin and Rocephin. Her pro BNP was 11,400. Troponins are negative 1. vital signs remain stable at this time. her blood pressure is hypertensive and her home antihypertensive medications have been restarted, however, lisinopril is on hold due to her acute kidney injury. I'm reevaluating this patient today on 09/28/2022 in follow-up on a general medical floor. Patient is resting comfortably in bed, on 2 L nasal cannula, in no acute distress. A therapeutic left-sided thoracentesis was performed yesterday, and approximately 800 mL of anita colored fluid was removed. The fluid was sent for cytology, however, the fluid appears to be transudative. Follow-up chest x-ray from yesterday showed a persistent right upper lobe pulmonary mass, decrease in left pleural effusion without evidence of pneumothorax, and trace right pleural effusion. Patient is currently nothing by mouth in preparation for potential bronchoscopy today. There may be scheduling conflict, as oncology has ordered a bone scan at the same time today. If needed, we can schedule this bronchoscopy for tomorrow. Patient's CBC from today shows a WBC count of 8, hemoglobin 8.9, hematocrit 28.20, platelets 257,000. BMP today continues to show some acute renal failure with a sodium of 139, potassium 4, chloride 103, serum CO2 up to 20, BUN 74.9, creatinine 5, glucose 298. patient will probably have to be restarted on her home long-acting insulin in order to control her hyperglycemia. She continues to receive dextrose with 3 A of sodium bicarbonate at 75 mL per hour. Her procalcitonin was 0.24 yesterday, and she continues to be covered with empiric Rocephin. She continues receiving DuoNeb inhalations. Vital signs remain stable. The patient is seen today 09/29/2022 in follow-up on the regular medical floor. She is currently resting fairly comfortably in bed. Awake and alert in no acute distress. Maintaining O2 saturations in the 90s on 2 L/m per nasal cannula. She's afebrile. Hemodynamically stable. She did undergo a left-sided thoracentesis on 09/27/2022. Pathology and cultures pending. A bone scan performed 09/28/2022 revealed focal tracer activity in the posterior aspect of the left shoulder below the level of the glenohumeral joint, possibly within the proximal left humerus. Cannot exclude bone metastasis. No other evidence of osseous metastatic disease. White count 11.5. Hemoglobin 9.5. Platelets 314. Sodium 144. Potassium 4.0. BUN 75. Creatinine 5.5. Glucose 152. Urinalysis with moderate leukocyte esterase, high WBCs, rare bacteria. She is currently on ceftriaxone. Remains on bronchodilators. Continued on IV diuretics. The patient is seen today 09/30/2022 in follow-up on the regular medical floor. Currently resting in bed. Awake and alert in no acute distress. She is having some issues with nausea. She is still having some shortness of breath with exertion. She is on 3 L nasal cannula. Currently receiving iron. She did undergo navigational bronchoscopy yesterday with multiple transbronchial biopsies of the right upper lobe mass with brushings and washings. Also fine- needle aspirate of subcarinal lymph nodes. Pathology pending. Cultures pending. Pleural fluid cytology pending from 09/27/2022. White count 10.8. Hemoglobin 9.6. Sodium 139. Potassium 4.4. Bicarb 18. BUN 91. Creatinine 5. 69. Glucose 208. Calcium 7.2. She is continued on IV diuretics. Nephrology is following. Objective - Vital Signs Vital signs: Vital Signs Temp 97.8 F 09/30/22 07:53 Pulse 84 09/30/22 08:38 Resp 16 09/30/22 08:00 BP 121/69 09/30/22 07:53 Pulse Ox 93 L 09/30/22 08:29 FiO2 Intake & Output 09/29/22 09/30/22 09/30/22 18:59 06:59 18:59 Intake Total 600 Output Total 200 Balance 400 Intake: IV 600 Output: Urine 200 Other: Voiding Method Indwelling Catheter Indwelling Catheter - Exam GENERAL EXAM: Alert, very pleasant 67-year-old female, on 3 L nasal cannula, fairly comfortable in no apparent distress. HEAD: Normocephalic and atraumatic EYES: Normal reaction of pupils, equal size. NOSE: Clear with pink turbinates. THROAT: No erythema or exudates. NECK: No masses, no JVD. CHEST: No chest wall deformity. LUNGS: Equal air entry with basilar crackles left greater than right. No conversational dyspnea or accessory muscle use. CVS: S1 and S2 normal with no audible murmur, regular rhythm. ABDOMEN: No hepatosplenomegaly, normal bowel sounds, no guarding or rigidity. SPINE: No scoliosis or deformity. no CVA tenderness. SKIN: No rashes CENTRAL NERVOUS SYSTEM: No focal deficits, tone is normal in all 4 extremities. EXTREMITIES: There is no peripheral edema, clubbing, or cyanosis. Peripheral pulses are intact. there is a left BKA - Labs CBC & Chem 7: 09/30/22 08:13 09/30/22 07:24 Labs: Abnormal Lab Results - Last 24 Hours (Table) 09/29/22 09/29/22 09/29/22 Range/Units 13:34 16:42 17:24 WBC (3.8-10.6) k/uL RBC (3.80-5.40) m/uL Hgb (11.4-16.0) gm/dL Hct (34.0-46.0) % Neutrophils # (1.3-7.7) k/uL Lymphocytes # (1.0-4.8) k/uL Carbon Dioxide (22-30) mmol/L BUN (7-17) mg/dL Creatinine (0.52-1.04) mg/dL Glucose (74-99) mg/dL POC Glucose (mg/dL) 222 H 265 H (70-110) mg/dL Calcium (8.4-10.2) mg/dL CA 15-3 Antigen 73.1 H (0.0-32.3) U/mL 09/29/22 09/30/22 09/30/22 Range/Units 21:10 06:05 07:24 WBC (3.8-10.6) k/uL RBC (3.80-5.40) m/uL Hgb (11.4-16.0) gm/dL Hct (34.0-46.0) % Neutrophils # (1.3-7.7) k/uL Lymphocytes # (1.0-4.8) k/uL Carbon Dioxide 18 L (22-30) mmol/L BUN 91 H (7-17) mg/dL Creatinine 5.69 H (0.52-1.04) mg/dL Glucose 208 H (74-99) mg/dL POC Glucose (mg/dL) 345 H 260 H (70-110) mg/dL Calcium 7.2 L (8.4-10.2) mg/dL CA 15-3 Antigen (0.0-32.3) U/mL 09/30/22 09/30/22 Range/Units 08:13 11:44 WBC 10.8 H (3.8-10.6) k/uL RBC 3.40 L (3.80-5.40) m/uL Hgb 9.6 L D (11.4-16.0) gm/dL Hct 29.2 L (34.0-46.0) % Neutrophils # 9.0 H (1.3-7.7) k/uL Lymphocytes # 0.8 L (1.0-4.8) k/uL Carbon Dioxide (22-30) mmol/L BUN (7-17) mg/dL Creatinine (0.52-1.04) mg/dL Glucose (74-99) mg/dL POC Glucose (mg/dL) 158 H (70-110) mg/dL Calcium (8.4-10.2) mg/dL CA 15-3 Antigen (0.0-32.3) U/mL Microbiology - Last 24 Hours (Table) 09/27/22 09:58 Gram Stain - Preliminary Pleural Fluid Body Fluid Culture - Preliminary 09/26/22 20:05 Blood Culture - Preliminary Blood No Growth after 72 hours 09/26/22 20:16 Blood Culture - Preliminary Blood No Growth after 72 hours 09/27/22 09:58 Anaerobic Culture - Preliminary Pleural Fluid Assessment and Plan Assessment: Large right lung mass with suspicious adenopathy. Navigational bronchoscopy with biopsies and FNA of the subcarinal lymph node performed on 09/29/2022. Pathology pending. Large left pleural effusion. Improved post thoracentesis 09/27/2022. 800 ML's of anita colored fluid removed. Pleural fluid was transudative. Total protein 2.6. LDH 129. Fluid was sent for cytology. Acute kidney injury. Hold nephrotoxic agents. Current creatinine 5.69. GFR 7 Metabolic acidosis, secondary to above Acute anemia, receiving iron supplements Left breast invasive ductal carcinoma diagnosed April,. Has not started treatment yet. Oncology has been consulted Insulin-dependent diabetes mellitus. Hypertension Hyperlipidemia Current smoker. 100 pack years History of left BKA Plan: The patient was seen and evaluated Medications and labs reviewed Receiving iron supplements Thoracentesis/bronchial biopsy pathology pending Titrate the FiO2 as tolerated Overall prognosis is guarded Nephrology following no plans for PE[employer] T[employer]ER at this point We'll continue to follow I have personally seen and examined the patient, performed the documentation and the assessment and plan as written. Number of minutes spent on the visit: 10.
--- NOTE | 2022-09-30 14:49 | P.PN ---
Subjective Progress Note Date: 09/30/22 this is a pleasant 67 years old female with past medical history of hypertension, hyperlipidemia, Bipolar, anxiety and depression, diabetes mellitus Patient was complaining of from dyspnea for about a week and her PCP Dr. Gutiérrez send her to emergency room. She denies cough no chest pain patient noticed decrease frequency and amount of urination recently She's been feeling dizziness for the last 3 months but no weakness or numbness. No GI symptoms like no vomiting diarrhea or abdominal pain Patient also follow up with Dr. dash for recently diagnosed left breast cancer as she states since last April. She is not on chemotherapy Vitals are stable, blood pressure elevated to 225/99, now improved 189/82 Labs including CBC is unremarkable. Creatinine is elevated 4.7 was 3.7 about 5 days ago There were enzymes are unremarkable, proBNP is elevated 11 600, troponin is negative. EKG showing normal sinus rhythm at [address]-T changes Increased right lower lobe airspace opacity correlated for developing pneumonia. Right upper lobe pulmonary suspected mass remains present. Seminal moderate left pleural effusion and trace right pleural effusion In the emergency room patient started on Zithromax and ceftriaxone and normal saline 100 mL/h. Bladder scan checks it was 270 09/28/2022 Patient still have mild dyspnea while she is lying in bed, she still also complained from low urine output and she is still constipated. She denies chest pain abdominal pain or headache, weakness or numbness. No report of GI bleed or blood in stool. Her vitals looks stable and she is saturating 95% and 2 L oxygen via nasal cannula. Her hemoglobin went down to 8.9 today while creatinine went up to 5, glucose was elevated, at times was taken Levemir 40 units and insulin sliding scale, because of her renal problem we lower the dose to 20 units daily. Currently on ceftriaxone and Zithromax and sodium bicarb. Blood pressure is better 152/60 through while she is on clonidine patch 0.2 on Norvasc 10 mg daily. And hydralazine 25 mg 3 times a day 09/29/2022 Patient is more short of breath Occasional coughing and no chest pain No other new complaints, Bone scan shows some uptake in the left upper extremity however patient denies any pain there is no restriction of movement, further recommendation defer to oncology team ordered a bone scan. Also patient planned to go bronchoscopy and biopsy by pulmonary team today. Creatinine worsened to 5.5 and nephrology assessing for possible and a pleasant therapy as indicated. Glucose is better controlled 09/30. Patient seen and examined. Still complaining of shortness of breath. Also complaining of nausea and poor appetite. REVIEW OF SYSTEMS: CONSTITUTIONAL: No fever, no malaise,. CARDIOVASCULAR: No chest pain, no palpitations, no syncope. PULMONARY: no cough, GASTROINTESTINAL: No diarrhea, no abdominal pain. NEUROLOGICAL: No headaches, no weakness, PHYSICAL EXAMINATION: GENERAL: The patient is alert and oriented x3, not in any acute distress. Well developed, well nourished. HEENT: Pupils are round and equally reacting to light. EOMI. No scleral icterus. No conjunctival pallor. Normocephalic, atraumatic. No pharyngeal erythema. No thyromegaly. CARDIOVASCULAR: S1 and S2 present. No murmurs, rubs, or gallops. PULMONARY: Chest is clear to auscultation, no wheezing or crackles. ABDOMEN: Soft, nontender, nondistended, normoactive bowel sounds. No palpable organomegaly. MUSCULOSKELETAL: No joint swelling or deformity. EXTREMITIES: No cyanosis, clubbing, or pedal edema. NEUROLOGICAL: Gross neurological examination did not reveal any focal deficits. SKIN: No rashes. Assessment and plan Acute renal failure Right upper lobe pulmonary mass suspected, Left pleural effusion, status post thoracocentesis Anemia History of left breast cancer diagnosed last April not on chemotherapy Possible acute diastolic CHF Right lower lobe opacities, less likely pneumonia Hypertension Hyperlipidemia Diabetes mellitus History of bipolar, anxiety, not in active tissue Surgery of left BKA Plan: Monitor vital signs Monitor CBC Monitor CMP Status postnavigational bronchoscopy yesterday with multiple transbronchial biopsies of the right upper lobe mass with brushings and washings. Also fine- needle aspirate of subcarinal lymph nodes. Follow-up on pathology results Follow-up on pulmonary recommendations Follow-up on nephrology recommendations Objective - Vital Signs Vital signs: Vital Signs Temp 97.7 F 09/30/22 13:58 Pulse 81 09/30/22 13:58 Resp 18 09/30/22 13:58 BP 122/69 09/30/22 13:58 Pulse Ox 92 L 09/30/22 13:58 FiO2 Intake & Output 09/29/22 09/30/22 09/30/22 18:59 06:59 18:59 Intake Total 600 Output Total 200 Balance 400 Intake: IV 600 Output: Urine 200 Other: Voiding Method Indwelling Catheter Indwelling Catheter - Labs CBC & Chem 7: 09/30/22 08:13 09/30/22 07:24 Labs: Abnormal Lab Results - Last 24 Hours (Table) 09/29/22 09/29/22 09/29/22 Range/Units 16:42 17:24 21:10 WBC (3.8-10.6) k/uL RBC (3.80-5.40) m/uL Hgb (11.4-16.0) gm/dL Hct (34.0-46.0) % Neutrophils # (1.3-7.7) k/uL Lymphocytes # (1.0-4.8) k/uL Carbon Dioxide (22-30) mmol/L BUN (7-17) mg/dL Creatinine (0.52-1.04) mg/dL Glucose (74-99) mg/dL POC Glucose (mg/dL) 265 H 345 H (70-110) mg/dL Calcium (8.4-10.2) mg/dL CA 15-3 Antigen 73.1 H (0.0-32.3) U/mL 09/30/22 09/30/22 09/30/22 Range/Units 06:05 07:24 08:13 WBC 10.8 H (3.8-10.6) k/uL RBC 3.40 L (3.80-5.40) m/uL Hgb 9.6 L D (11.4-16.0) gm/dL Hct 29.2 L (34.0-46.0) % Neutrophils # 9.0 H (1.3-7.7) k/uL Lymphocytes # 0.8 L (1.0-4.8) k/uL Carbon Dioxide 18 L (22-30) mmol/L BUN 91 H (7-17) mg/dL Creatinine 5.69 H (0.52-1.04) mg/dL Glucose 208 H (74-99) mg/dL POC Glucose (mg/dL) 260 H (70-110) mg/dL Calcium 7.2 L (8.4-10.2) mg/dL CA 15-3 Antigen (0.0-32.3) U/mL 09/30/22 Range/Units 11:44 WBC (3.8-10.6) k/uL RBC (3.80-5.40) m/uL Hgb (11.4-16.0) gm/dL Hct (34.0-46.0) % Neutrophils # (1.3-7.7) k/uL Lymphocytes # (1.0-4.8) k/uL Carbon Dioxide (22-30) mmol/L BUN (7-17) mg/dL Creatinine (0.52-1.04) mg/dL Glucose (74-99) mg/dL POC Glucose (mg/dL) 158 H (70-110) mg/dL Calcium (8.4-10.2) mg/dL CA 15-3 Antigen (0.0-32.3) U/mL Microbiology - Last 24 Hours (Table) 09/27/22 09:58 Gram Stain - Preliminary Pleural Fluid Body Fluid Culture - Preliminary 09/26/22 20:05 Blood Culture - Preliminary Blood No Growth after 72 hours 09/26/22 20:16 Blood Culture - Preliminary Blood No Growth after 72 hours 09/27/22 09:58 Anaerobic Culture - Preliminary Pleural Fluid
[2022-09-30 16:47] LABS: Glucose,Whole Blood 122 mg/dL (70-110)
[2022-09-30] MEDS: ONDANSETRON 4 MG/2 ML VIAL IVP PRN ×2 (17:00→21:19)
[2022-09-30 20:35] LABS: Glucose,Whole Blood 171 mg/dL (70-110)
[2022-09-30] MEDS: INSULIN DETEMIR (LEVEMIR) 100 UNIT/ML SYR SQ SCH (21:20)
[2022-10-01] MEDS: IPRATROPIUM-ALBUTEROL 3 ML NEB INHALATION PRN (00:22)
[2022-10-01] MEDS ORDERED: RX INFO: IV CONTRAST WAS GIVEN 1 EACH MISC MISCELLANE PRN (00:54)
[2022-10-01] MEDS ORDERED: FUROSEMIDE 10 MG/ML 4 ML VIAL IV STA (01:08)
[2022-10-01] MEDS ORDERED: LORazepam 2 MG/ML INJ IV PRN (01:21)
[2022-10-01 06:20] LABS: Glucose,Whole Blood 134 mg/dL (70-110)
[2022-10-01] MEDS: INSULIN ASPART (NovoLOG) 100 UNIT/ML VIAL SQ SCH ×8 (06:28→20:38)
[2022-10-01] MEDS: IPRATROPIUM-ALBUTEROL 3 ML NEB INHALATION SCH ×4 (08:08→20:37)
[2022-10-01 09:01] LABS: Basophils # (A) 0.03 X 10*3/uL (0.00-0.10); Basophils % (A) 0.3 %; Eosinophils # (A) 0.03 X 10*3/uL (0.04-0.35); Eosinophils % (A) 0.3 %; HCT 29.2 % (37.2-46.3); HGB 8.9 g/dL (12.0-15.0); Immature Grans, Automated 0.6 %; Lymphocytes # (A) 0.88 X 10*3/uL (0.90-5.00); Lymphocytes % (A) 8.4 %; MCH 27.6 pg (27.0-32.0); MCHC 30.5 g/dL (32.0-37.0); MCV 90.4 fL (80.0-97.0); Mean Platelet Volume 11.1 fL (9.5-12.2); Monocytes # (A) 0.97 X 10*3/uL (0.20-1.00); Monocytes % (A) 9.2 %; NRBC Per 100 WBC 0 /100 WBCS (0.0-0.0); Neutrophils # (A) 8.55 X 10*3/uL (1.80-7.70); Neutrophils % (A) 81.2 %; Platelet Count 296 X 10*3/uL (140-440); RBC 3.23 X 10*6/uL (4.10-5.20); RDW 14.8 % (11.5-14.5); WBC 10.52 X 10*3/uL (4.50-10.00)
--- NOTE | 2022-10-01 09:14 | XR ---
EXAMINATION TYPE: XR chest 1V portable DATE OF EXAM: 10/01/2022 8:25 AM COMPARISON: Chest radiographs from 09/29/2022 TECHNIQUE: XR chest 1V portable Portable AP radiograph of the chest. CLINICAL INDICATION:Female, 67 years old with history of chf; FINDINGS: Lungs/Pleura: No evidence of focal consolidation or pneumothorax. Blunting of the costophrenic angles is present. Pulmonary vascularity: Unremarkable. Heart/mediastinum: Cardiomediastinal silhouette is enlarged and stable. Atherosclerotic calcificatio ns are seen in the aorta. Musculoskeletal: No acute osseous pathology. IMPRESSION: Cardiomegaly, pulmonary vascular congestion and bilateral pleural effusions. Correlate with BNP for c ongestive heart failure.
[2022-10-01 09:18] LABS: ALT 11 U/L (8-44); AST 33 U/L (13-35); African American GFR (CKD) 6.9 (60.0-200.0); Albumin 3.1 g/dL (3.8-4.9); Albumin/Globulin Ratio 1.64 (1.60-3.17); Alkaline Phosphatase 79 U/L (41-126); BUN/Creat Ratio 13.08 Ratio (12.00-20.00); Blood Urea Nitrogen 85.4 mg/dL (9.0-27.0); Calcium 7.7 mg/dL (8.7-10.3); Carbon Dioxide 19.9 mmol/L (20.0-27.5); Chloride 103 mmol/L (96-109); Globulin 1.9 g/dL (1.6-3.3); Glucose 126 mg/dL (70-110); Potassium 4.1 mmol/L (3.5-5.5); Sodium 143 mmol/L (135-145); Total Bilirubin <0.15 mg/dL (0.30-1.20); Total Protein 5.1 g/dL (6.2-8.2)
[2022-10-01] MEDS: FUROSEMIDE 10 MG/ML 4 ML VIAL IV SCH (09:42)
[2022-10-01] MEDS: hydrALAZINE HCL 25 MG TAB PO SCH ×3 (09:46→20:34)
[2022-10-01] MEDS: amLODIPine 10 MG TAB PO SCH (09:46)
[2022-10-01] MEDS: SODIUM FERRIC GLUCONAT-SUCROSE 125 MG in SODIUM CHLORIDE 0.9% 100 ML IVPB SCH (09:53)
[2022-10-01 11:38] LABS: Glucose,Whole Blood 103 mg/dL (70-110)
--- NOTE | 2022-10-01 11:52 | P.PN ---
Subjective Progress Note Date: 10/01/22 Principal diagnosis: Right lung mass and large left pleural effusion I'm evaluating this patient today on 09/27/2022 in regard to a new consult that was placed for a large right lung mass. The patient was directed to [facility] by her primary care physician Dr. Gutiérrez, after having shortness of breath for approximately 1 week. there is an associated nonproductive cough. Patient denies any hemoptysis, chest pain, fevers. Her pertinent medical history is positive for left breast ductal carcinoma diagnosed in April,. She apparently has not started treatment yet, and is waiting on a PET scan. She is a 2 pack per day smoker for approximately 50 years, has a history of a left BKA, hyperlipidemia, hypertension, diabetes mellitus, anxiety, bipolar, depression. no family history of lung cancer noted. her non-enhanced chest CT from today showed a posterior right lung mass with enlarged mediastinal adenopathy, some thickening of the left adrenal gland which could indicate metastasis or adenoma, and some small to moderate to moderate bilateral pleural effusions with compressive atelectasis adjacent to the left pleural effusion. Patient had a follow-up chest ultrasound which showed a moderate to large left pleural effusion, which will need to be drained for symptom relief and cytology. she is currently resting in bed, on 2 L nasal cannula, in no acute distress. she is receiving DuoNeb inhalation. renal ultrasound was also done yesterday on 09/26 due to elevation in her creatinine which showed no evidence of renal mass or obstruction, some possible debris in the posterior urinary bladder, and no definite bladder mass. nephrology consult was placed. CBC from today shows a WBC count 9.8, hemoglobin 11.3, hematocrit 36.3, platelets 339,000. Her BMP from today shows a sodium of 140, potassium 5, chloride 113, serum CO2 11, BUN 74, creatinine 4.87, glucose 315. She received 2 amps of sodium bicarbonate IV push, and she is receiving 3 amps of sodium bicarbonate in dextrose at 75 mL per hour. her procalcitonin was mildly elevated at 0.24. she is empirically receiving azithromycin and Rocephin. Her pro BNP was 11,400. Troponins are negative 1. vital signs remain stable at this time. her blood pressure is hypertensive and her home antihypertensive medications have been restarted, however, lisinopril is on hold due to her acute kidney injury. I'm reevaluating this patient today on 09/28/2022 in follow-up on a general medical floor. Patient is resting comfortably in bed, on 2 L nasal cannula, in no acute distress. A therapeutic left-sided thoracentesis was performed yesterday, and approximately 800 mL of anita colored fluid was removed. The fluid was sent for cytology, however, the fluid appears to be transudative. Follow-up chest x-ray from yesterday showed a persistent right upper lobe pulmonary mass, decrease in left pleural effusion without evidence of pneumothorax, and trace right pleural effusion. Patient is currently nothing by mouth in preparation for potential bronchoscopy today. There may be scheduling conflict, as oncology has ordered a bone scan at the same time today. If needed, we can schedule this bronchoscopy for tomorrow. Patient's CBC from today shows a WBC count of 8, hemoglobin 8.9, hematocrit 28.20, platelets 257,000. BMP today continues to show some acute renal failure with a sodium of 139, potassium 4, chloride 103, serum CO2 up to 20, BUN 74.9, creatinine 5, glucose 298. patient will probably have to be restarted on her home long-acting insulin in order to control her hyperglycemia. She continues to receive dextrose with 3 A of sodium bicarbonate at 75 mL per hour. Her procalcitonin was 0.24 yesterday, and she continues to be covered with empiric Rocephin. She continues receiving DuoNeb inhalations. Vital signs remain stable. The patient is seen today 09/29/2022 in follow-up on the regular medical floor. She is currently resting fairly comfortably in bed. Awake and alert in no acute distress. Maintaining O2 saturations in the 90s on 2 L/m per nasal cannula. She's afebrile. Hemodynamically stable. She did undergo a left-sided thoracentesis on 09/27/2022. Pathology and cultures pending. A bone scan performed 09/28/2022 revealed focal tracer activity in the posterior aspect of the left shoulder below the level of the glenohumeral joint, possibly within the proximal left humerus. Cannot exclude bone metastasis. No other evidence of osseous metastatic disease. White count 11.5. Hemoglobin 9.5. Platelets 314. Sodium 144. Potassium 4.0. BUN 75. Creatinine 5.5. Glucose 152. Urinalysis with moderate leukocyte esterase, high WBCs, rare bacteria. She is currently on ceftriaxone. Remains on bronchodilators. Continued on IV diuretics. The patient is seen today 09/30/2022 in follow-up on the regular medical floor. Currently resting in bed. Awake and alert in no acute distress. She is having some issues with nausea. She is still having some shortness of breath with exertion. She is on 3 L nasal cannula. Currently receiving iron. She did undergo navigational bronchoscopy yesterday with multiple transbronchial biopsies of the right upper lobe mass with brushings and washings. Also fine- needle aspirate of subcarinal lymph nodes. Pathology pending. Cultures pending. Pleural fluid cytology pending from 09/27/2022. White count 10.8. Hemoglobin 9.6. Sodium 139. Potassium 4.4. Bicarb 18. BUN 91. Creatinine 5.69. Glucose 208. Calcium 7.2. She is continued on IV diuretics. Nephrology is following. Patient was reevaluated today on 10/01/2022, patient had issues related to shortness of breath last night, hence I had to place the patient on BiPAP, 08/22/50%, did well and slept well overnight, remains on BiPAP today, and she has been receiving Lasix for her bilateral pleural effusions. When I saw the patien t this morning, she seems better, and I recommended possibly transitioning the patient to a high flow nasal cannula in the meantime continue Lasix. That is also another bronchoscopy are pending the results on her pleural effusion/cytology is pending overall patient remains relatively ill, and she n eeds further workup and should have a definitive diagnosis overly in the next couple of days. She is still being followed by many consultants, and her renal status is being addressed by nephrology WBC count today is 10.5 hemoglobin 8.9 electrolytes are normal her BUN is 85 creatinine 6.5 Objective - Vital Signs Vital signs: Vital Signs Temp 98.2 F 10/01/22 06:53 Pulse 78 10/01/22 08:23 Resp 18 10/01/22 10:27 BP 151/70 10/01/22 06:53 Pulse Ox 96 10/01/22 06:53 FiO2 50 10/01/22 08:06 Intake & Output 09/30/22 10/01/2223 18:59 06:59 18:59 Output Total 600 Balance -600 Output: Urine 600 Other: Voiding Method Indwelling Catheter Indwelling Catheter Indwelling Catheter - Exam Physical Exam: Revealed a 67-year-old female on BiPAP 08/21/50% in no distress Head: Atraumatic normocephalic. HEENT:[Neck is supple.] [No neck masses.] [No thyromegaly.] [No JVD.] Chest: [Diminished breath sounds and crackles at the bases especially at the left base. Cardiac Exam: [Normal S1 and S2, no S3 gallop, no murmur.] Abdomen: [Soft, nontender, no megaly, no rebound, no guarding, normal bowel sounds.] Extremities: [No clubbing, no edema, no cyanosis.] Neurological Exam: [No focal neurologic deficit.] Alert oriented 3 Psychiatric: Normal mood affect and normal mental status examination. - Labs CBC & Chem 7: 10/01/22 06:25 10/01/22 06:25 Labs: Abnormal Lab Results - Last 24 Hours (Table) 09/30/22 09/30/22 09/30/22 Range/Units 11:44 16:45 20:34 WBC (4.50-10.00) X 10*3/uL RBC (4.10-5.20) X 10*6/uL Hgb (12.0-15.0) g/dL Hct (37.2-46.3) % MCHC (32.0-37.0) g/dL RDW (11.5-14.5) % Immature Gran # (0.00-0.04) X 10*3/uL Neutrophils # (1.80-7.70) X 10*3/uL Lymphocytes # (0.90-5.00) X 10*3/uL Eosinophils # (0.04-0.35) X 10*3/uL Carbon Dioxide (20.0-27.5) mmol/L Anion Gap (10.00-18.00) mmol/L BUN (9.0-27.0) mg/dL Creatinine (0.6-1.5) mg/dL Est GFR (CKD-EPI)AfAm (60.0-200.0) Est GFR (CKD-EPI)NonAf (60.0-200.0) Glucose (70-110) mg/dL POC Glucose (mg/dL) 158 H 122 H 171 H (70-110) mg/dL Calcium (8.7-10.3) mg/dL Total Bilirubin (0.30-1.20) mg/dL Total Protein (6.2-8.2) g/dL Albumin (3.8-4.9) g/dL 10/01/22 10/01/22 10/01/22 Range/Units 06:19 06:25 06:25 WBC 10.52 H (4.50-10.00) X 10*3/uL RBC 3.23 L (4.10-5.20) X 10*6/uL Hgb 8.9 L (12.0-15.0) g/dL Hct 29.2 L (37.2-46.3) % MCHC 30.5 L (32.0-37.0) g/dL RDW 14.8 H (11.5-14.5) % Immature Gran # 0.06 H (0.00-0.04) X 10*3/uL Neutrophils # 8.55 H (1.80-7.70) X 10*3/uL Lymphocytes # 0.88 L (0.90-5.00) X 10*3/uL Eosinophils # 0.03 L (0.04-0.35) X 10*3/uL Carbon Dioxide 19.9 L (20.0-27.5) mmol/L Anion Gap 19.50 H (10.00-18.00) mmol/L BUN 85.4 H (9.0-27.0) mg/dL Creatinine 6.5 H (0.6-1.5) mg/dL Est GFR (CKD-EPI)AfAm 6.9 L (60.0-200.0) Est GFR (CKD-EPI)NonAf 6.0 L (60.0-200.0) Glucose 126 H (70-110) mg/dL POC Glucose (mg/dL) 134 H (70-110) mg/dL Calcium 7.7 L (8.7-10.3) mg/dL Total Bilirubin <0.15 L (0.30-1.20) mg/dL Total Protein 5.1 L (6.2-8.2) g/dL Albumin 3.1 L (3.8-4.9) g/dL Microbiology - Last 24 Hours (Table) 09/27/22 09:58 Gram Stain - Final Pleural Fluid Body Fluid Culture - Final 09/26/22 20:16 Blood Culture - Preliminary Blood No Growth after 96 hours 09/26/22 20:05 Blood Culture - Preliminary Blood No Growth after 96 hours Assessment and Plan Assessment: Impression: Right lung mass with mediastinal adenopathy highly suspicious for malignancy, status post bronchoscopy and transbronchial biopsies and wind needle aspiration of 7 on station lymph nodes, results are pending Left pleural effusion, status post thoracentesis the fluid was transudative in nature doubt malignancy in the fluid. Acute hypoxic respiratory failure secondary to above Acute kidney injury, patient is being followed by nephrology History of left breast cancer invasive ductal carcinoma diagnosed in April 2022, no treatment yet Benign essential hypertension Insulin-dependent diabetes Dyslipidemia [id number] smoking history History of left below knee amputation Recommendation: Continue present treatment plan Continue BiPAP and transitioned to high flow nasal cannula Continue diuretics I suspect the patient has some component of acute diastolic congestive heart failure or fluid overload secondary to her renal failure Continue bronchodilators Awaiting final cytology on the left pleural effusion Awaiting the final pathology on her bronchoscopy and her wind needle aspirations May or may not require another left-sided thoracentesis Continue to titrate FiO2 accordingly, we'll continue to follow Overall prognosis is extremely poor and guarded Time with Patient: Less than 30
--- NOTE | 2022-10-01 12:57 | P.PN ---
Subjective Progress Note Date: 10/01/22 this is a pleasant 67 years old female with past medical history of hypertension, hyperlipidemia, Bipolar, anxiety and depression, diabetes mellitus Patient was complaining of from dyspnea for about a week and her PCP Dr. Gutiérrez send her to emergency room. She denies cough no chest pain patient noticed decrease frequency and amount of urination recently She's been feeling dizziness for the last 3 months but no weakness or numbness. No GI symptoms like no vomiting diarrhea or abdominal pain Patient also follow up with Dr. dash for recently diagnosed left breast cancer as she states since last April. She is not on chemotherapy Vitals are stable, blood pressure elevated to 225/99, now improved 189/82 Labs including CBC is unremarkable. Creatinine is elevated 4.7 was 3.7 about 5 days ago There were enzymes are unremarkable, proBNP is elevated 11 600, troponin is negative. EKG showing normal sinus rhythm at [address]-T changes Increased right lower lobe airspace opacity correlated for developing pneumonia. Right upper lobe pulmonary suspected mass remains present. Seminal moderate left pleural effusion and trace right pleural effusion In the emergency room patient started on Zithromax and ceftriaxone and normal saline 100 mL/h. Bladder scan checks it was 270 09/28/2022 Patient still have mild dyspnea while she is lying in bed, she still also complained from low urine output and she is still constipated. She denies chest pain abdominal pain or headache, weakness or numbness. No report of GI bleed or blood in stool. Her vitals looks stable and she is saturating 95% and 2 L oxygen via nasal cannula. Her hemoglobin went down to 8.9 today while creatinine went up to 5, glucose was elevated, at times was taken Levemir 40 units and insulin sliding scale, because of her renal problem we lower the dose to 20 units daily. Currently on ceftriaxone and Zithromax and sodium bicarb. Blood pressure is better 152/60 through while she is on clonidine patch 0.2 on Norvasc 10 mg daily. And hydralazine 25 mg 3 times a day 09/29/2022 Patient is more short of breath Occasional coughing and no chest pain No other new complaints, Bone scan shows some uptake in the left upper extremity however patient denies any pain there is no restriction of movement, further recommendation defer to oncology team ordered a bone scan. Also patient planned to go bronchoscopy and biopsy by pulmonary team today. Creatinine worsened to 5.5 and nephrology assessing for possible and a pleasant therapy as indicated. Glucose is better controlled 09/30. Patient seen and examined. Still complaining of shortness of breath. Also complaining of nausea and poor appetite. 10/01. Patient seen and examined. Patient was transitioned to BiPAP last night, this morning she states she feels much better, denies any lightheadedness or dizziness. REVIEW OF SYSTEMS: CONSTITUTIONAL: No fever, no malaise,. CARDIOVASCULAR: No chest pain, no palpitations, no syncope. PULMONARY: no cough, GASTROINTESTINAL: No diarrhea, no abdominal pain. NEUROLOGICAL: No headaches, no weakness, PHYSICAL EXAMINATION: GENERAL: The patient is alert and oriented x3, not in any acute distress. Well developed, well nourished. HEENT: Pupils are round and equally reacting to light. EOMI. No scleral icterus. No conjunctival pallor. Normocephalic, atraumatic. No pharyngeal erythema. No thyromegaly. CARDIOVASCULAR: S1 and S2 present. No murmurs, rubs, or gallops. PULMONARY: Diminished breath sounds at the bases bilaterally, basilar crackles audible ABDOMEN: Soft, nontender, nondistended, normoactive bowel sounds. No palpable organomegaly. MUSCULOSKELETAL: No joint swelling or deformity. EXTREMITIES: No cyanosis, clubbing, or pedal edema. NEUROLOGICAL: Gross neurological examination did not reveal any focal deficits. SKIN: No rashes. Assessment and plan Acute renal failure Right upper lobe pulmonary mass suspected, Left pleural effusion, status post thoracocentesis Anemia History of left breast cancer diagnosed last April not on chemotherapy Possible acute diastolic CHF Right lower lobe opacities, less likely pneumonia Hypertension Hyperlipidemia Diabetes mellitus History of bipolar, anxiety, not in active tissue Surgery of left BKA Plan: Monitor vital signs Monitor CBC Monitor CMP Continue BiPAP Status postnavigational bronchoscopy yesterday with multiple transbronchial biopsies of the right upper lobe mass with brushings and washings. Also fine- needle aspirate of subcarinal lymph nodes. Follow-up on pathology results Continue IV Lasix 40 mg daily Follow-up on pulmonary recommendations Follow-up on nephrology recommendations Objective - Vital Signs Vital signs: Vital Signs Temp 97.6 F 10/01/22 11:30 Pulse 80 10/01/22 12:11 Resp 16 10/01/22 11:30 BP 140/63 10/01/22 11:30 Pulse Ox 96 10/01/22 11:30 FiO2 50 10/01/22 08:06 Intake & Output 09/30/22 10/01/22 10/01/22 18:59 06:59 18:59 Output Total 600 Balance -600 Output: Urine 600 Other: Voiding Method Indwelling Catheter Indwelling Catheter Indwelling Catheter - Labs CBC & Chem 7: 10/01/22 06:25 10/01/22 06:25 Labs: Abnormal Lab Results - Last 24 Hours (Table) 09/30/22 09/30/22 10/01/22 Range/Units 16:45 20:34 06:19 WBC (4.50-10.00) X 10*3/uL RBC (4.10-5.20) X 10*6/uL Hgb (12.0-15.0) g/dL Hct (37.2-46.3) % MCHC (32.0-37.0) g/dL RDW (11.5-14.5) % Immature Gran # (0.00-0.04) X 10*3/uL Neutrophils # (1.80-7.70) X 10*3/uL Lymphocytes # (0.90-5.00) X 10*3/uL Eosinophils # (0.04-0.35) X 10*3/uL Carbon Dioxide (20.0-27.5) mmol/L Anion Gap (10.00-18.00) mmol/L BUN (9.0-27.0) mg/dL Creatinine (0.6-1.5) mg/dL Est GFR (CKD-EPI)AfAm (60.0-200.0) Est GFR (CKD-EPI)NonAf (60.0-200.0) Glucose (70-110) mg/dL POC Glucose (mg/dL) 122 H 171 H 134 H (70-110) mg/dL Calcium (8.7-10.3) mg/dL Total Bilirubin (0.30-1.20) mg/dL Total Protein (6.2-8.2) g/dL Albumin (3.8-4.9) g/dL 10/01/22 10/01/22 Range/Units 06:25 06:25 WBC 10.52 H (4.50-10.00) X 10*3/uL RBC 3.23 L (4.10-5.20) X 10*6/uL Hgb 8.9 L (12.0-15.0) g/dL Hct 29.2 L (37.2-46.3) % MCHC 30.5 L (32.0-37.0) g/dL RDW 14.8 H (11.5-14.5) % Immature Gran # 0.06 H (0.00-0.04) X 10*3/uL Neutrophils # 8.55 H (1.80-7.70) X 10*3/uL Lymphocytes # 0.88 L (0.90-5.00) X 10*3/uL Eosinophils # 0.03 L (0.04-0.35) X 10*3/uL Carbon Dioxide 19.9 L (20.0-27.5) mmol/L Anion Gap 19.50 H (10.00-18.00) mmol/L BUN 85.4 H (9.0-27.0) mg/dL Creatinine 6.5 H (0.6-1.5) mg/dL Est GFR (CKD-EPI)AfAm 6.9 L (60.0-200.0) Est GFR (CKD-EPI)NonAf 6.0 L (60.0-200.0) Glucose 126 H (70-110) mg/dL POC Glucose (mg/dL) (70-110) mg/dL Calcium 7.7 L (8.7-10.3) mg/dL Total Bilirubin <0.15 L (0.30-1.20) mg/dL Total Protein 5.1 L (6.2-8.2) g/dL Albumin 3.1 L (3.8-4.9) g/dL Microbiology - Last 24 Hours (Table) 09/27/22 09:58 Gram Stain - Final Pleural Fluid Body Fluid Culture - Final 09/26/22 20:16 Blood Culture - Preliminary Blood No Growth after 96 hours 09/26/22 20:05 Blood Culture - Preliminary Blood No Growth after 96 hours
[2022-10-01 16:38] LABS: Glucose,Whole Blood 129 mg/dL (70-110)
[2022-10-01] MEDS ORDERED: traMADol 50 MG TAB PO PRN (16:44)
[2022-10-01] MEDS ORDERED: ACETAMINOPHEN TAB 325 MG TAB PO PRN (16:44)
[2022-10-01 19:50] LABS: Glucose,Whole Blood 203 mg/dL (70-110)
[2022-10-01] MEDS: HEPARIN SODIUM,PORCINE/PF 5,000 UNIT/0.5 ML SYRINGE SQ SCH (20:33)
[2022-10-01] MEDS: INSULIN DETEMIR (LEVEMIR) 100 UNIT/ML SYR SQ SCH (20:33)
[2022-10-01 23:55] LABS: ABG Base Excess -3.2 mmol/L; ABG HCO3 23 mmol/L (21-25); ABG PCO2 46 mmHg (35-45); ABG PH 7.31 (7.35-7.45); ABG PO2 85 mmHg (83-108); ABG TCO2 24 mmol/L (19-24); Allen Test Performed? Yes
--- NOTE | 2022-10-02 00:27 | XR ---
EXAMINATION TYPE: XR chest 1V portable DATE OF EXAM: 10/01/2022 COMPARISON: The 20 HISTORY: Short of breath TECHNIQUE: FINDINGS: There is blunting of the cosmetic angles and more on the left side. There are chest leads. Heart size is grossly normal. There is pulmonary vascular congestion. IMPRESSION: Bilateral pleural effusions with basilar pulmonary infiltrates. Pulmonary congestion. The re is congestive heart failure which is slightly improved compared to exam earlier today.
[2022-10-02 06:04] LABS: Glucose,Whole Blood 102 mg/dL (70-110)
[2022-10-02] MEDS: INSULIN ASPART (NovoLOG) 100 UNIT/ML VIAL SQ SCH ×8 (06:21→21:22)
[2022-10-02 06:50] LABS: Basophils # (A) 0.1 k/uL (0-0.2); Basophils % (A) 1 %; Eosinophils # (A) 0.1 k/uL (0-0.7); Eosinophils % (A) 1 %; HCT 30.7 % (34.0-46.0); HGB 9.4 gm/dL (11.4-16.0); Hypochromasia Slight; Lymphocytes # (A) 0.9 k/uL (1.0-4.8); Lymphocytes % (A) 11 %; MCH 27.3 pg (25.0-35.0); MCHC 30.7 g/dL (31.0-37.0); MCV 89.1 fL (80.0-100.0); Mean Platelet Volume 8.4; Monocytes # (A) 0.7 k/uL (0-1.0); Monocytes % (A) 8 %; Neutrophils # (A) 6.4 k/uL (1.3-7.7); Neutrophils % (A) 76 %; Platelet Count 302 k/uL (150-450); RBC 3.45 m/uL (3.80-5.40); RDW 14.4 % (11.5-15.5); WBC 8.4 k/uL (3.8-10.6)
[2022-10-02 07:14] LABS: Calcium 7.4 mg/dL (8.4-10.2); Potassium 4.1 mmol/L (3.5-5.1); Total Bilirubin 0.3 mg/dL (0.2-1.3); Total Protein 5.3 g/dL (6.3-8.2)
[2022-10-02] MEDS: hydrALAZINE HCL 25 MG TAB PO SCH ×3 (08:20→21:22)
[2022-10-02] MEDS: ONDANSETRON 4 MG/2 ML VIAL IVP PRN (08:20)
[2022-10-02] MEDS: HEPARIN SODIUM,PORCINE/PF 5,000 UNIT/0.5 ML SYRINGE SQ SCH ×2 (08:20→21:22)
[2022-10-02] MEDS: FAMOTIDINE 20 MG TAB PO SCH (08:20)
[2022-10-02] MEDS: amLODIPine 10 MG TAB PO SCH (08:20)
[2022-10-02] MEDS: IPRATROPIUM-ALBUTEROL 3 ML NEB INHALATION SCH ×4 (08:41→15:56)
[2022-10-02] MEDS: FUROSEMIDE 10 MG/ML 4 ML VIAL IV SCH (09:48)
[2022-10-02] MEDS: SODIUM FERRIC GLUCONAT-SUCROSE 125 MG in SODIUM CHLORIDE 0.9% 100 ML IVPB SCH (09:48)
--- NOTE | 2022-10-02 10:39 | P.PN ---
Subjective Patient is seen for follow-up for acute kidney injury, mostly ATN with worsening renal function. Patient has history of left breast cancer diagnosed in April 2022. She was also noted to have a right lung mass with mediastinal adenopathy highly bailey spicious for malignancy currently awaiting pathology from transbronchial biopsies and needle aspiration of lymph nodes. Renal function has been worsening with serum creatinine up to 7.1 today. No rita dence of obstruction on ultrasound of the kidneys Blood pressure has not been low Patient has an indwelling Beltran catheter. 24 hour urine noted to be 1.2 L Objective - Vital Signs Vital signs: Vital Signs Temp 98.1 F 10/02/22 08:15 Pulse 84 10/02/22 08:52 Resp 20 10/02/22 08:15 BP 131/63 10/02/22 08:15 Pulse Ox 95 10/02/22 08:41 FiO2 50 10/02/22 04:00 Intake & Output 10/01/22 10/02/22 10/02/22 18:59 06:59 18:59 Intake Total 118 Output Total 300 Balance -300 118 Weight 44.5 kg Intake: Oral 118 Output: Urine 300 Other: Voiding Method Indwelling Catheter Indwelling Catheter Indwelling Catheter - Exam Patient is awake, comfortable, in no acute distress She seems to comprehend Examination of the heart S1 and S2 Examination of the lungs bilateral breath sounds are heard Abdomen is soft nontender Examination of the lower extremities shows no significant edema [employer] exam grossly intact - Labs CBC & Chem 7: 10/02/22 06:25 10/02/22 06:25 Labs: Abnormal Lab Results - Last 24 Hours (Table) 10/01/22 10/01/22 10/01/22 Range/Units 16:34 19:49 23:52 RBC (3.80-5.40) m/uL Hgb (11.4-16.0) gm/dL Hct (34.0-46.0) % MCHC (31.0-37.0) g/dL Lymphocytes # (1.0-4.8) k/uL ABG pH 7.31 L (7.35-7.45) ABG pCO2 46 H (35-45) mmHg BUN (7-17) mg/dL Creatinine (0.52-1.04) mg/dL POC Glucose (mg/dL) 129 H 203 H (70-110) mg/dL Calcium (8.4-10.2) mg/dL Total Protein (6.3-8.2) g/dL Albumin (3.5-5.0) g/dL Procalcitonin (0.02-0.09) ng/mL 10/02/22 10/02/22 10/02/22 Range/Units 06:25 06:25 06:25 RBC 3.45 L (3.80-5.40) m/uL Hgb 9.4 L (11.4-16.0) gm/dL Hct 30.7 L (34.0-46.0) % MCHC 30.7 L (31.0-37.0) g/dL Lymphocytes # 0.9 L (1.0-4.8) k/uL ABG pH (7.35-7.45) ABG pCO2 (35-45) mmHg BUN 94 H (7-17) mg/dL Creatinine 7.11 H* (0.52-1.04) mg/dL POC Glucose (mg/dL) (70-110) mg/dL Calcium 7.4 L (8.4-10.2) mg/dL Total Protein 5.3 L (6.3-8.2) g/dL Albumin 3.0 L (3.5-5.0) g/dL Procalcitonin 0.40 H (0.02-0.09) ng/mL Microbiology - Last 24 Hours (Table) 09/26/22 20:05 Blood Culture - Preliminary Blood No Growth after 120 hours 09/26/22 20:16 Blood Culture - Preliminary Blood No Growth after 120 hours 09/27/22 09:58 Anaerobic Culture - Final Pleural Fluid 09/27/22 09:58 Gram Stain - Final Pleural Fluid Body Fluid Culture - Final Assessment and Plan Assessment: 1. Acute kidney injury with worsening renal function mostly ATN with underlying diabetic nephropathy. No evidence of obstruction. Patient will need to consider renal replacement therapy as renal function continues to worsen. This may not be ideal on long-term given her recent diagnosis of malignancy with evidence of metastasis and right lung mass. 2. Left plural effusion status post thoracentesis 3. History of left breast cancer 4. Right lung mass with adenopathy status post bronchoscopy and needle aspiration of lymph nodes, awaiting pathology 5. COPD 6. Anemia with evidence of iron deficiency maintained on IV iron Plan: Discussed with patient regarding renal replacement therapy. Patient also states that we need to talk to her sister's which I will communicate with them later on today. No urgent need to start hemodialysis today. Again patient is not an ideal candidate for long-term renal replacement therapy given her underlying malignancy with possible metastasis. Currently awaiting pathology results.
--- NOTE | 2022-10-02 11:21 | P.PN ---
Subjective Progress Note Date: 10/02/22 I'm evaluating this patient today on 09/27/2022 in regard to a new consult that was placed for a large right lung mass. The patient was directed to [facility] by her primary care physician Dr. Gutiérrez, after having shortness of breath for approximately 1 week. there is an associated nonproductive cough. Patient denies any hemoptysis, chest pain, fevers. Her pertinent medical history is positive for left breast ductal carcinoma diagnosed in April,. She apparently has not started treatment yet, and is waiting on a PET scan. She is a 2 pack per day smoker for approximately 50 years, has a history of a left BKA, hyperlipidemia, hypertension, diabetes mellitus, anxiety, bipolar, depression. no family history of lung cancer noted. her non-enhanced chest CT from today showed a posterior right lung mass with enlarged mediastinal adenopathy, some thickening of the left adrenal gland which could indicate metastasis or adenoma, and some small to moderate to moderate bilateral pleural effusions with compressive atelectasis adjacent to the left pleural effusion. Patient had a follow-up chest ultrasound which showed a moderate to large left pleural effusion, which will need to be drained for symptom relief and cytology. she is currently resting in bed, on 2 L nasal cannula, in no acute distress. she is receiving DuoNeb inhalation. renal ultrasound was also done yesterday on 0 09/26/2022 due to elevation in her creatinine which showed no evidence of renal mass or obstruction, some possible debris in the posterior urinary bladder, and no definite bladder mass. nephrology consult was placed. CBC from today shows a WBC count 9.8, hemoglobin 11.3, hematocrit 36.3, platelets 339,000. Her BMP from today shows a sodium of 140, potassium 5, chloride 113, serum CO2 11, BUN 74, creatinine 4.87, glucose 315. She received 2 amps of sodium bicarbonate IV push, and she is receiving 3 amps of sodium bicarbonate in dextrose at 75 mL per hour. her procalcitonin was mildly elevated at 0.24. she is empirically receiving azithromycin and Rocephin. Her pro BNP was 11,400. Troponins are negative 1. vital signs remain stable at this time. her blood pressure is hypertensive and her home antihypertensive medications have been restarted, however, lisinopril is on hold due to her acute kidney injury. I'm reevaluating this patient today on 09/28/2022 in follow-up on a general medical floor. Patient is resting comfortably in bed, on 2 L nasal cannula, in no acute distress. A therapeutic left-sided thoracentesis was performed yesterday, and approximately 800 mL of anita colored fluid was removed. The fluid was sent for cytology, however, the fluid appears to be transudative. Follow-up chest x-ray from yesterday showed a persistent right upper lobe pulmonary mass, decrease in left pleural effusion without evidence of pneumothorax, and trace right pleural effusion. Patient is currently nothing by mouth in preparation for potential bronchoscopy today. There may be scheduling conflict, as oncology has ordered a bone scan at the same time today. If needed, we can schedule this bronchoscopy for tomorrow. Patient's CBC from today shows a WBC count of 8, hemoglobin 8.9, hematocrit 28.20, platelets 257,000. BMP today continues to show some acute renal failure with a sodium of 139, potassium 4, chloride 103, serum CO2 up to 20, BUN 74.9, creatinine 5, glucose 298. patient will probably have to be restarted on her home long-acting insulin in order to control her hyperglycemia. She continues to receive dextrose with 3 A of sodium bicarbonate at 75 mL per hour. Her procalcitonin was 0.24 yesterday, and she continues to be covered with empiric Rocephin. She continues receiving DuoNeb inhalations. Vital signs remain stable. The patient is seen today 09/29/2022 in follow-up on the regular medical floor. She is currently resting fairly comfortably in bed. Awake and alert in no acute distress. Maintaining O2 saturations in the 90s on 2 L/m per nasal cannula. She's afebrile. Hemodynamically stable. She did undergo a left-sided thoracentesis on 09/27/2022. Pathology and cultures pending. A bone scan performed 09/28/2022 revealed focal tracer activity in the posterior aspect of the left shoulder below the level of the glenohumeral joint, possibly within the proximal left humerus. Cannot exclude bone metastasis. No other evidence of osseous metastatic disease. White count 11.5. Hemoglobin 9.5. Platelets 314. Sodium 144. Potassium 4.0. BUN 75. Creatinine 5.5. Glucose 152. Urinalysis with moderate leukocyte esterase, high WBCs, rare bacteria. She is currently on ceftriaxone. Remains on bronchodilators. Continued on IV diuretics. The patient is seen today 09/30/2022 in follow-up on the regular medical floor. Currently resting in bed. Awake and alert in no acute distress. She is having some issues with nausea. She is still having some shortness of breath with exertion. She is on 3 L nasal cannula. Currently receiving iron. She did undergo navigational bronchoscopy yesterday with multiple transbronchial biopsies of the right upper lobe mass with brushings and washings. Also fine- needle aspirate of subcarinal lymph nodes. Pathology pending. Cultures pending. Pleural fluid cytology pending from 11 09/27/2022. White count 10.8. Hemoglobin 9.6. Sodium 139. Potassium 4.4. Bicarb 18. BUN 91. Creatinine 5. 69. Glucose 208. Calcium 7.2. She is continued on IV diuretics. Nephrology is following. Patient was reevaluated today on 10/01/2022, patient had issues related to shortness of breath last night, hence I had to place the patient on BiPAP, 12/6/50%, did well and slept well overnight, remains on BiPAP today, and she has been receiving Lasix for her bilateral pleural effusions. When I saw the ally montano this morning, she seems better, and I recommended possibly transitioning the patient to a high flow nasal cannula in the meantime continue Lasix. That is also another bronchoscopy are pending the results on her pleural effusion/cytology is pending overall patient remains relatively ill, and she needs further workup and should have a definitive diagnosis overly in the next couple of days. She is still being followed by many consultants, and her renal status is being addressed by nephrology WBC count today is 10.5 hemoglobin 8.9 electrolytes are normal her BUN is 85 creatinine 6.5 The patient is seen today 10/02/2022 in follow-up on the selective care unit. She is currently resting in bed. She is awake and alert. Quite weak and debilitated. Complaining of some dizziness. She is maintaining O2 saturations in the 90s on 6 L high flow nasal cannula. She's been alternating with BiPAP 12/6 and 50% FiO2. Lung biopsy pathology results pending. Pleural fluid cytology pending. White count 8.4. Hemoglobin 9.4. Sodium 142. Potassium 4.1. BUN 94. Creatinine 7.11. Albumin 3.0. Pro calcitonin 0.40. She is currently afebrile. Hemodynamically stable. Nephrology is considering renal replacement therapy. Objective - Vital Signs Vital signs: Vital Signs Temp 98.1 F 10/02/22 08:15 Pulse 84 10/02/22 08:52 Resp 20 10/02/22 08:15 BP 131/63 10/02/22 08:15 Pulse Ox 95 10/02/22 08:41 FiO2 50 10/02/22 04:00 Intake & Output 10/01/22 10/02/22 10/02/22 18:59 06:59 18:59 Intake Total 118 Output Total 300 Balance -300 118 Weight 44.5 kg Intake: Oral 118 Output: Urine 300 Other: Voiding Method Indwelling Catheter Indwelling Catheter Indwelling Catheter - Exam GENERAL EXAM: Alert, very pleasant, weak 67-year-old female, on 6 L nasal cannula alternating with BiPAP 12/6 and 50% FiO2 nasal cannula, fairly comfortable in no apparent distress. HEAD: Normocephalic and atraumatic EYES: Normal reaction of pupils, equal size. NOSE: Clear with pink turbinates. THROAT: No erythema or exudates. NECK: No masses, no JVD. CHEST: No chest wall deformity. LUNGS: Equal air entry with basilar crackles left greater than right. No conversational dyspnea or accessory muscle use. CVS: S1 and S2 normal with no audible murmur, regular rhythm. ABDOMEN: No hepatosplenomegaly, normal bowel sounds, no guarding or rigidity. SPINE: No scoliosis or deformity. no CVA tenderness. SKIN: No rashes CENTRAL NERVOUS SYSTEM: No focal deficits, tone is normal in all 4 extremities. EXTREMITIES: There is no peripheral edema, clubbing, or cyanosis. Peripheral pulses are intact. there is a left BKA - Labs CBC & Chem 7: 10/02/22 06:25 10/02/22 06:25 Labs: Abnormal Lab Results - Last 24 Hours (Table) 10/01/22 10/01/22 10/01/22 Range/Units 16:34 19:49 23:52 RBC (3.80-5.40) m/uL Hgb (11.4-16.0) gm/dL Hct (34.0-46.0) % MCHC (31.0-37.0) g/dL Lymphocytes # (1.0-4.8) k/uL ABG pH 7.31 L (7.35-7.45) ABG pCO2 46 H (35-45) mmHg BUN (7-17) mg/dL Creatinine (0.52-1.04) mg/dL POC Glucose (mg/dL) 129 H 203 H (70-110) mg/dL Calcium (8.4-10.2) mg/dL Total Protein (6.3-8.2) g/dL Albumin (3.5-5.0) g/dL Procalcitonin (0.02-0.09) ng/mL 10/02/22 10/02/22 10/02/22 Range/Units 06:25 06:25 06:25 RBC 3.45 L (3.80-5.40) m/uL Hgb 9.4 L (11.4-16.0) gm/dL Hct 30.7 L (34.0-46.0) % MCHC 30.7 L (31.0-37.0) g/dL Lymphocytes # 0.9 L (1.0-4.8) k/uL ABG pH (7.35-7.45) ABG pCO2 (35-45) mmHg BUN 94 H (7-17) mg/dL Creatinine 7.11 H* (0.52-1.04) mg/dL POC Glucose (mg/dL) (70-110) mg/dL Calcium 7.4 L (8.4-10.2) mg/dL Total Protein 5.3 L (6.3-8.2) g/dL Albumin 3.0 L (3.5-5.0) g/dL Procalcitonin 0.40 H (0.02-0.09) ng/mL Microbiology - Last 24 Hours (Table) 09/26/22 20:05 Blood Culture - Preliminary Blood No Growth after 120 hours 09/26/22 20:16 Blood Culture - Preliminary Blood No Growth after 120 hours 09/27/22 09:58 Anaerobic Culture - Final Pleural Fluid 09/27/22 09:58 Gram Stain - Final Pleural Fluid Body Fluid Culture - Final Assessment and Plan Assessment: Large right lung mass with suspicious adenopathy. Navigational bronchoscopy with biopsies and FNA of the subcarinal lymph node performed on 09/29/2022. Pa thology pending. Large left pleural effusion. Improved post thoracentesis 09/27/2022. 800 ML's of anita colored fluid removed. Pleural fluid was transudative. Total protein 2.6. LDH 129. Cytology is pending Acute kidney injury. Hold nephrotoxic agents. Current creatinine 7.11. GFR 5 Metabolic acidosis, secondary to above Acute anemia, receiving iron supplements Left breast invasive ductal carcinoma diagnosed April,. Has not started treatment yet. Oncology has been consulted Insulin-dependent diabetes mellitus. Hypertension Hyperlipidemia Current smoker. 100 pack years History of left BKA Plan: The patient was seen and evaluated Chest x-ray, medications and labs reviewed Did require BiPAP support and currently on 6 L high flow nasal cannula Titrate the FiO2 as tolerated CT scan of the brain pending Nephrology following will need CLINICAL PSYCHOLOGIST LICENSED Overall prognosis is guarded We'll continue to follow I have personally seen and examined the patient, performed the documentation and the assessment and plan as written. Number of minutes spent on the visit: 10.
[2022-10-02] MEDS: AZITHROMYCIN 500 MG in SODIUM CHLORIDE 0.9% 250 ML IVPB SCH (11:28)
--- NOTE | 2022-10-02 11:29 | CT ---
EXAMINATION TYPE: CT brain wo con DATE OF EXAM: 10/02/2022 COMPARISON: None INDICATION: AMS DLP: 1166.4 mGycm, Automated exposure control for dose reduction was used. CONTRAST: None CT of the brain is performed utilizing 3 mm thick sections through the posterior fossa and 3 mm thick sections through the remaining calvarium. Study is performed within 24 hours of arrival to the hosp [facility]. No abnormal hyperdensity is present to suggest an acute intracranial hemorrhage. No mass lesion is evident. No acute infarcts are evident. Mild periventricular white matter hypodensity is present, likely on th e basis of chronic white matter ischemic changes. Ventricles and sulci are mildly prominent for the patient age. Paranasal sinuses and mastoid air cells within the [id number] are clear. IMPRESSIONS: 1. Age-related atrophy with chronic appearing periventricular white matter ischemic-type changes. M RI can be performed as clinically indicated.
[2022-10-02 11:59] LABS: Glucose,Whole Blood 133 mg/dL (70-110)
[2022-10-02] MEDS: IPRATROPIUM-ALBUTEROL 3 ML NEB INHALATION PRN (12:25)
--- NOTE | 2022-10-02 12:42 | P.PN ---
Subjective Progress Note Date: 10/02/22 this is a pleasant 67 years old female with past medical history of hypertension, hyperlipidemia, Bipolar, anxiety and depression, diabetes mellitus Patient was complaining of from dyspnea for about a week and her PCP Dr. Gutiérrez send her to emergency room. She denies cough no chest pain patient noticed decrease frequency and amount of urination recently She's been feeling dizziness for the last 3 months but no weakness or numbness. No GI symptoms like no vomiting diarrhea or abdominal pain Patient also follow up with Dr. dash for recently diagnosed left breast cancer as she states since last April. She is not on chemotherapy Vitals are stable, blood pressure elevated to 225/99, now improved 189/82 Labs including CBC is unremarkable. Creatinine is elevated 4.7 was 3.7 about 5 days ago There were enzymes are unremarkable, proBNP is elevated 11 600, troponin is negative. EKG showing normal sinus rhythm at [address]-T changes Increased right lower lobe airspace opacity correlated for developing pneumonia. Right upper lobe pulmonary suspected mass remains present. Seminal moderate left pleural effusion and trace right pleural effusion In the emergency room patient started on Zithromax and ceftriaxone and normal saline 100 mL/h. Bladder scan checks it was 270 09/28/2022 Patient still have mild dyspnea while she is lying in bed, she still also complained from low urine output and she is still constipated. She denies chest pain abdominal pain or headache, weakness or numbness. No report of GI bleed or blood in stool. Her vitals looks stable and she is saturating 95% and 2 L oxygen via nasal cannula. Her hemoglobin went down to 8.9 today while creatinine went up to 5, glucose was elevated, at times was taken Levemir 40 units and insulin sliding scale, because of her renal problem we lower the dose to 20 units daily. Currently on ceftriaxone and Zithromax and sodium bicarb. Blood pressure is better 152/60 through while she is on clonidine patch 0.2 on Norvasc 10 mg daily. And hydralazine 25 mg 3 times a day 09/29/2022 Patient is more short of breath Occasional coughing and no chest pain No other new complaints, Bone scan shows some uptake in the left upper extremity however patient denies any pain there is no restriction of movement, further recommendation defer to oncology team ordered a bone scan. Also patient planned to go bronchoscopy and biopsy by pulmonary team today. Creatinine worsened to 5.5 and nephrology assessing for possible and a pleasant therapy as indicated. Glucose is better controlled 09/30. Patient seen and examined. Still complaining of shortness of breath. Also complaining of nausea and poor appetite. 10/01. Patient seen and examined. Patient was transitioned to BiPAP last night, this morning she states she feels much better, denies any lightheadedness or dizziness. 10/02. Patient seen and examined. Patient was on BiPAP overnight, currently on nasal cannula. Patient's kidney functions have worsened, nephrology will discuss with patient regarding renal replacement therapy REVIEW OF SYSTEMS: CONSTITUTIONAL: No fever, no malaise,. CARDIOVASCULAR: No chest pain, no palpitations, no syncope. PULMONARY: no cough, GASTROINTESTINAL: No diarrhea, no abdominal pain. NEUROLOGICAL: No headaches, no weakness, PHYSICAL EXAMINATION: GENERAL: The patient is alert and oriented x3, not in any acute distress. Well developed, well nourished. HEENT: Pupils are round and equally reacting to light. EOMI. No scleral icterus. No conjunctival pallor. Normocephalic, atraumatic. No pharyngeal erythema. No thyromegaly. CARDIOVASCULAR: S1 and S2 present. No murmurs, rubs, or gallops. PULMONARY: Diminished breath sounds at the bases bilaterally, basilar crackles audible ABDOMEN: Soft, nontender, nondistended, normoactive bowel sounds. No palpable organomegaly. MUSCULOSKELETAL: No joint swelling or deformity. EXTREMITIES: No cyanosis, clubbing, or pedal edema. NEUROLOGICAL: Gross neurological examination did not reveal any focal deficits. SKIN: No rashes. Assessment and plan Acute renal failure Right upper lobe pulmonary mass suspected, Left pleural effusion, status post thoracocentesis Anemia History of left breast cancer diagnosed last April not on chemotherapy Possible acute diastolic CHF Right lower lobe opacities, less likely pneumonia Hypertension Hyperlipidemia Diabetes mellitus History of bipolar, anxiety, not in active tissue Surgery of left BKA Plan: Monitor vital signs Monitor CBC Monitor CMP Continue BiPAP Status postnavigational bronchoscopy yesterday with multiple transbronchial biopsies of the right upper lobe mass with brushings and washings. Also fine- needle aspirate of subcarinal lymph nodes. Follow-up on pathology results Continue IV Lasix per nephrology Follow-up on pulmonary recommendations Follow-up in nephrology recommendations Follow-up on nephrology recommendations Objective - Vital Signs Vital signs: Vital Signs Temp 98.1 F 10/02/22 08:15 Pulse 88 10/02/22 12:25 Resp 22 10/02/22 11:54 BP 142/67 10/02/22 11:54 Pulse Ox 91 L 10/02/22 11:54 FiO2 50 10/02/22 04:00 Intake & Output 10/01/22 10/02/22 10/02/22 18:59 06:59 18:59 Intake Total 228 Output Total 300 Balance -300 228 Weight 44.5 kg Intake: Oral 228 Output: Urine 300 Other: Voiding Method Indwelling Catheter Indwelling Catheter Indwelling Catheter - Labs CBC & Chem 7: 10/02/22 06:25 10/02/22 06:25 Labs: Abnormal Lab Results - Last 24 Hours (Table) 10/01/22 10/01/22 10/01/22 Range/Units 16:34 19:49 23:52 RBC (3.80-5.40) m/uL Hgb (11.4-16.0) gm/dL Hct (34.0-46.0) % MCHC (31.0-37.0) g/dL Lymphocytes # (1.0-4.8) k/uL ABG pH 7.31 L (7.35-7.45) ABG pCO2 46 H (35-45) mmHg BUN (7-17) mg/dL Creatinine (0.52-1.04) mg/dL POC Glucose (mg/dL) 129 H 203 H (70-110) mg/dL Calcium (8.4-10.2) mg/dL Total Protein (6.3-8.2) g/dL Albumin (3.5-5.0) g/dL Procalcitonin (0.02-0.09) ng/mL 10/02/22 10/02/22 10/02/22 Range/Units 06:25 06:25 06:25 RBC 3.45 L (3.80-5.40) m/uL Hgb 9.4 L (11.4-16.0) gm/dL Hct 30.7 L (34.0-46.0) % MCHC 30.7 L (31.0-37.0) g/dL Lymphocytes # 0.9 L (1.0-4.8) k/uL ABG pH (7.35-7.45) ABG pCO2 (35-45) mmHg BUN 94 H (7-17) mg/dL Creatinine 7.11 H* (0.52-1.04) mg/dL POC Glucose (mg/dL) (70-110) mg/dL Calcium 7.4 L (8.4-10.2) mg/dL Total Protein 5.3 L (6.3-8.2) g/dL Albumin 3.0 L (3.5-5.0) g/dL Procalcitonin 0.40 H (0.02-0.09) ng/mL 10/02/22 Range/Units 11:54 RBC (3.80-5.40) m/uL Hgb (11.4-16.0) gm/dL Hct (34.0-46.0) % MCHC (31.0-37.0) g/dL Lymphocytes # (1.0-4.8) k/uL ABG pH (7.35-7.45) ABG pCO2 (35-45) mmHg BUN (7-17) mg/dL Creatinine (0.52-1.04) mg/dL POC Glucose (mg/dL) 133 H (70-110) mg/dL Calcium (8.4-10.2) mg/dL Total Protein (6.3-8.2) g/dL Albumin (3.5-5.0) g/dL Procalcitonin (0.02-0.09) ng/mL Microbiology - Last 24 Hours (Table) 09/26/22 20:05 Blood Culture - Preliminary Blood No Growth after 120 hours 09/26/22 20:16 Blood Culture - Preliminary Blood No Growth after 120 hours 09/27/22 09:58 Anaerobic Culture - Final Pleural Fluid 09/27/22 09:58 Gram Stain - Final Pleural Fluid Body Fluid Culture - Final
[2022-10-02] MEDS ORDERED: ALPRAZolam 0.25 MG TAB PO SCH (16:00)
[2022-10-02 16:55] LABS: Glucose,Whole Blood 148 mg/dL (70-110)
--- NOTE | 2022-10-02 17:17 | P.PN ---
Subjective Progress Note Date: 10/02/22 Principal diagnosis: SOB, breast cancer Pt is resting in bed. Reports she isn't feeling well today, c/o nausea and SOB. Denies vomiting. No acute pain. Objective - Vital Signs Vital signs: Vital Signs Temp 98.1 F 10/02/22 08:15 Pulse 84 10/02/22 08:52 Resp 20 10/02/22 08:15 BP 131/63 10/02/22 08:15 Pulse Ox 95 10/02/22 08:41 FiO2 50 10/02/22 04:00 Intake & Output 10/01/22 10/02/22 10/02/22 18:59 06:59 18:59 Intake Total 118 Output Total 300 Balance -300 118 Weight 44.5 kg Intake: Oral 118 Output: Urine 300 Other: Voiding Method Indwelling Catheter Indwelling Catheter Indwelling Catheter - Constitutional General appearance: Present: average body habitus, cooperative, mild distress - EENT Eyes: Present: anicteric sclerae, EOMI ENT: Present: hearing grossly normal - Respiratory Respiratory: bilateral: diminished, wheezing - Cardiovascular Rhythm: regular Heart sounds: normal: S1, S2 Abnormal Heart Sounds: Absent: systolic murmur, diastolic murmur, rub, S3 Gallop, S4 Gallop, click, other - Peripheral edema leg Peripheral Edema: right: None (left BKA) - Integumentary Integumentary: Present: normal - Neurologic Neurologic Comment(s): grossly intact Neurologic: Present: CNII-XII intact - Musculoskeletal Musculoskeletal: Present: strength equal bilaterally - Psychiatric Psychiatric Comment(s): Conversation with pt is confusing at times, she does not stay on topic and repeats herself. Psychiatric: Present: A&O x's 3, appropriate affect - Labs CBC & Chem 7: 10/02/22 06:25 10/02/22 06:25 Labs: Abnormal Lab Results - Last 24 Hours (Table) 10/01/22 10/01/22 10/01/22 Range/Units 16:34 19:49 23:52 RBC (3.80-5.40) m/uL Hgb (11.4-16.0) gm/dL Hct (34.0-46.0) % MCHC (31.0-37.0) g/dL Lymphocytes # (1.0-4.8) k/uL ABG pH 7.31 L (7.35-7.45) ABG pCO2 46 H (35-45) mmHg BUN (7-17) mg/dL Creatinine (0.52-1.04) mg/dL POC Glucose (mg/dL) 129 H 203 H (70-110) mg/dL Calcium (8.4-10.2) mg/dL Total Protein (6.3-8.2) g/dL Albumin (3.5-5.0) g/dL Procalcitonin (0.02-0.09) ng/mL 10/02/22 10/02/22 10/02/22 Range/Units 06:25 06:25 06:25 RBC 3.45 L (3.80-5.40) m/uL Hgb 9.4 L (11.4-16.0) gm/dL Hct 30.7 L (34.0-46.0) % MCHC 30.7 L (31.0-37.0) g/dL Lymphocytes # 0.9 L (1.0-4.8) k/uL ABG pH (7.35-7.45) ABG pCO2 (35-45) mmHg BUN 94 H (7-17) mg/dL Creatinine 7.11 H* (0.52-1.04) mg/dL POC Glucose (mg/dL) (70-110) mg/dL Calcium 7.4 L (8.4-10.2) mg/dL Total Protein 5.3 L (6.3-8.2) g/dL Albumin 3.0 L (3.5-5.0) g/dL Procalcitonin 0.40 H (0.02-0.09) ng/mL Microbiology - Last 24 Hours (Table) 09/26/22 20:05 Blood Culture - Preliminary Blood No Growth after 120 hours 09/26/22 20:16 Blood Culture - Preliminary Blood No Growth after 120 hours 09/27/22 09:58 Anaerobic Culture - Final Pleural Fluid 09/27/22 09:58 Gram Stain - Final Pleural Fluid Body Fluid Culture - Final Assessment and Plan (1) Breast carcinoma Current Visit: Yes Status: Acute Priority: High Code(s): C50.919 - MALIGNANT NEOPLASM OF UNSP SITE OF UNSPECIFIED FEMALE BREAST SNOMED Code(s): 277093204 (2) Mass of lung Current Visit: Yes Status: Acute Priority: High Code(s): R91.8 - OTHER NONSPECIFIC ABNORMAL FINDING OF LUNG FIELD SNOMED Code(s): 376800408 Plan: Invasive ductal carcinoma -Stage IIIc clinically, hormone receptor positive, HER-2 negative. Pending staging studies-have been held up due to ALLISON. Bone scan completed, showing tracer activity of posterior aspect of left shoulder. -Ca 15.3 elevated 73.1, Ca 27.29 pending Shortness of breath -Lt Pleural effusion and a right lung mass. -Status post 750 cc thoracentesis, Improvement in symptoms, cytology pending. resulted later in the day, cytology positive, c/w breast primary. Will discuss results with pt tomorrow -Bronchoscopy completed 09/29/21, biopsy of RUL and subcarinal lymph nodes obtained, pathology pending -Will f/u on pending biopsies with patient, outpt visit schedule with Dr Jose Daniel cherry on 10/09
[2022-10-02 20:20] LABS: Glucose,Whole Blood 262 mg/dL (70-110)
[2022-10-02] MEDS: INSULIN DETEMIR (LEVEMIR) 100 UNIT/ML SYR SQ SCH (21:22)
[2022-10-02] MEDS: ALPRAZolam 0.25 MG TAB PO PRN (21:22)
[2022-10-03] MEDS: ALPRAZolam 0.25 MG TAB PO PRN (02:16)
[2022-10-03 06:04] LABS: Glucose,Whole Blood 81 mg/dL (70-110)
[2022-10-03] MEDS: INSULIN ASPART (NovoLOG) 100 UNIT/ML VIAL SQ SCH ×4 (06:28→15:31)
[2022-10-03] MEDS: IPRATROPIUM-ALBUTEROL 3 ML NEB INHALATION SCH ×3 (08:20→15:31)
[2022-10-03 08:33] VITALS: RESP 20; TEMP 97.4
[2022-10-03 09:32] LABS: Basophils # (A) 0.1 k/uL (0-0.2); Basophils % (A) 1 %; Eosinophils # (A) 0.2 k/uL (0-0.7); Eosinophils % (A) 2 %; HCT 30.6 % (34.0-46.0); HGB 9.5 gm/dL (11.4-16.0); Hypochromasia Slight; Lymphocytes # (A) 1.1 k/uL (1.0-4.8); Lymphocytes % (A) 11 %; MCH 27.4 pg (25.0-35.0); MCHC 30.9 g/dL (31.0-37.0); MCV 88.7 fL (80.0-100.0); Mean Platelet Volume 8.2; Monocytes # (A) 0.7 k/uL (0-1.0); Monocytes % (A) 7 %; Neutrophils # (A) 7.6 k/uL (1.3-7.7); Neutrophils % (A) 77 %; Platelet Count 348 k/uL (150-450); RBC 3.45 m/uL (3.80-5.40); RDW 14.4 % (11.5-15.5)
[2022-10-03 09:50] LABS: Calcium 7.3 mg/dL (8.4-10.2); Potassium 3.8 mmol/L (3.5-5.1)
[2022-10-03] MEDS: HEPARIN SODIUM,PORCINE/PF 5,000 UNIT/0.5 ML SYRINGE SQ SCH (09:51)
[2022-10-03] MEDS: amLODIPine 10 MG TAB PO SCH (09:51)
[2022-10-03] MEDS: FUROSEMIDE 10 MG/ML 4 ML VIAL IV SCH (09:51)
[2022-10-03] MEDS: hydrALAZINE HCL 25 MG TAB PO SCH ×2 (09:51→19:37)
[2022-10-03] MEDS: FAMOTIDINE 20 MG TAB PO SCH (09:55)
[2022-10-03 10:14] LABS: Glucose,Whole Blood 50 mg/dL (70-110)
[2022-10-03 10:25] LABS: Glucose,Whole Blood 175 mg/dL (70-110)
[2022-10-03 10:37] LABS: Glucose,Whole Blood 166 mg/dL (70-110)
[2022-10-03] MEDS: AZITHROMYCIN 500 MG in SODIUM CHLORIDE 0.9% 250 ML IVPB SCH (11:28)
[2022-10-03 11:30] LABS: Glucose,Whole Blood 121 mg/dL (70-110)
--- NOTE | 2022-10-03 11:44 | P.PN ---
Subjective Progress Note Date: 10/03/22 I'm evaluating this patient today on 09/27/2022 in regard to a new consult that was placed for a large right lung mass. The patient was directed to [facility] by her primary care physician Dr. Gutiérrez, after having shortness of breath for approximately 1 week. there is an associated nonproductive cough. Patient denies any hemoptysis, chest pain, fevers. Her pertinent medical history is positive for left breast ductal carcinoma diagnosed in April,. She apparently has not started treatment yet, and is waiting on a PET scan. She is a 2 pack per day smoker for approximately 50 years, has a history of a left BKA, hyperlipidemia, hypertension, diabetes mellitus, anxiety, bipolar, depression. no family history of lung cancer noted. her non-enhanced chest CT from today showed a posterior right lung mass with enlarged mediastinal adenopathy, some thickening of the left adrenal gland which could indicate metastasis or adenoma, and some small to moderate to moderate bilateral pleural effusions with compressive atelectasis adjacent to the left pleural effusion. Patient had a follow-up chest ultrasound which showed a moderate to large left pleural effusion, which will need to be drained for symptom relief and cytology. she is currently resting in bed, on 2 L nasal cannula, in no acute distress. she is receiving DuoNeb inhalation. renal ultrasound was also done yesterday on 0 09/26/2022 due to elevation in her creatinine which showed no evidence of renal mass or obstruction, some possible debris in the posterior urinary bladder, and no definite bladder mass. nephrology consult was placed. CBC from today shows a WBC count 9.8, hemoglobin 11.3, hematocrit 36.3, platelets 339,000. Her BMP from today shows a sodium of 140, potassium 5, chloride 113, serum CO2 11, BUN 74, creatinine 4.87, glucose 315. She received 2 amps of sodium bicarbonate IV push, and she is receiving 3 amps of sodium bicarbonate in dextrose at 75 mL per hour. her procalcitonin was mildly elevated at 0.24. she is empirically receiving azithromycin and Rocephin. Her pro BNP was 11,400. Troponins are negative 1. vital signs remain stable at this time. her blood pressure is hypertensive and her home antihypertensive medications have been restarted, however, lisinopril is on hold due to her acute kidney injury. I'm reevaluating this patient today on 09/28/2022 in follow-up on a general medical floor. Patient is resting comfortably in bed, on 2 L nasal cannula, in no acute distress. A therapeutic left-sided thoracentesis was performed yesterday, and approximately 800 mL of anita colored fluid was removed. The fluid was sent for cytology, however, the fluid appears to be transudative. Follow-up chest x-ray from yesterday showed a persistent right upper lobe pulmonary mass, decrease in left pleural effusion without evidence of pneumothorax, and trace right pleural effusion. Patient is currently nothing by mouth in preparation for potential bronchoscopy today. There may be scheduling conflict, as oncology has ordered a bone scan at the same time today. If needed, we can schedule this bronchoscopy for tomorrow. Patient's CBC from today shows a WBC count of 8, hemoglobin 8.9, hematocrit 28.20, platelets 257,000. BMP today continues to show some acute renal failure with a sodium of 139, potassium 4, chloride 103, serum CO2 up to 20, BUN 74.9, creatinine 5, glucose 298. patient will probably have to be restarted on her home long-acting insulin in order to control her hyperglycemia. She continues to receive dextrose with 3 A of sodium bicarbonate at 75 mL per hour. Her procalcitonin was 0.24 yesterday, and she continues to be covered with empiric Rocephin. She continues receiving DuoNeb inhalations. Vital signs remain stable. The patient is seen today 09/29/2022 in follow-up on the regular medical floor. She is currently resting fairly comfortably in bed. Awake and alert in no acute distress. Maintaining O2 saturations in the 90s on 2 L/m per nasal cannula. She's afebrile. Hemodynamically stable. She did undergo a left-sided thoracentesis on 09/27/2022. Pathology and cultures pending. A bone scan performed 09/28/2022 revealed focal tracer activity in the posterior aspect of the left shoulder below the level of the glenohumeral joint, possibly within the proximal left humerus. Cannot exclude bone metastasis. No other evidence of osseous metastatic disease. White count 11.5. Hemoglobin 9.5. Platelets 314. Sodium 144. Potassium 4.0. BUN 75. Creatinine 5.5. Glucose 152. Urinalysis with moderate leukocyte esterase, high WBCs, rare bacteria. She is currently on ceftriaxone. Remains on bronchodilators. Continued on IV diuretics. The patient is seen today 09/30/2022 in follow-up on the regular medical floor. Currently resting in bed. Awake and alert in no acute distress. She is having some issues with nausea. She is still having some shortness of breath with exertion. She is on 3 L nasal cannula. Currently receiving iron. She did undergo navigational bronchoscopy yesterday with multiple transbronchial biopsies of the right upper lobe mass with brushings and washings. Also fine- needle aspirate of subcarinal lymph nodes. Pathology pending. Cultures pending. Pleural fluid cytology pending from 11 09/27/2022. White count 10.8. Hemoglobin 9.6. Sodium 139. Potassium 4.4. Bicarb 18. BUN 91. Creatinine 5. 69. Glucose 208. Calcium 7.2. She is continued on IV diuretics. Nephrology is following. Patient was reevaluated today on 10/01/2022, patient had issues related to shortness of breath last night, hence I had to place the patient on BiPAP, 12/6/50%, did well and slept well overnight, remains on BiPAP today, and she has been receiving Lasix for her bilateral pleural effusions. When I saw the ally montano this morning, she seems better, and I recommended possibly transitioning the patient to a high flow nasal cannula in the meantime continue Lasix. That is also another bronchoscopy are pending the results on her pleural effusion/cytology is pending overall patient remains relatively ill, and she needs further workup and should have a definitive diagnosis overly in the next couple of days. She is still being followed by many consultants, and her renal status is being addressed by nephrology WBC count today is 10.5 hemoglobin 8.9 electrolytes are normal her BUN is 85 creatinine 6.5 The patient is seen today 10/02/2022 in follow-up on the selective care unit. She is currently resting in bed. She is awake and alert. Quite weak and debilitated. Complaining of some dizziness. She is maintaining O2 saturations in the 90s on 6 L high flow nasal cannula. She's been alternating with BiPAP 12/6 and 50% FiO2. Lung biopsy pathology results pending. Pleural fluid cytology pending. White count 8.4. Hemoglobin 9.4. Sodium 142. Potassium 4.1. BUN 94. Creatinine 7.11. Albumin 3.0. Pro calcitonin 0.40. She is currently afebrile. Hemodynamically stable. Nephrology is considering renal replacement therapy. The patient is seen today 10/03/2022 in follow-up on the selective care unit. She is a bit obtunded this morning. Arousable. Denies any worsening shortness of breath cough or congestion. Currently maintaining O2 saturations in the 90s on 6 L high flow nasal cannula. She's been afebrile. Hemodynamically stable. Computed tomography scan of the brain revealed age-related atrophy with chronic appearing. Ventricular white matter ischemic type changes. No mass or lesion identified. Pleural fluid pathology positive for metastatic mammary carcinoma. Biopsies and FNA from bronchoscopy results pending. White count 10.0. Hemoglobin 9.5. Platelets 348. Sodium 143. Potassium 3.8. Bicarb 24. BUN 94. Creatinine 7.17. Issues with hypoglycemia with a glucose of 43, treated and currently 121. She is continued on DuoNeb inhalations. Heparin for DVT prophylaxis. Antibiotics in the form of ceftriaxone and azithromycin. Remains on IV diuretics. Currently in a -422 ML's balance. Objective - Vital Signs Vital signs: Vital Signs Temp 97.4 F L 10/03/22 08:00 Pulse 78 10/03/22 08:00 Resp 20 10/03/22 08:00 BP 147/74 10/03/22 08:00 Pulse Ox 93 L 10/03/22 08:00 FiO2 50 10/03/22 00:00 Intake & Output 10/02/22 10/03/22 10/03/22 18:59 06:59 18:59 Intake Total 228 Output Total 350 300 300 Balance -122 -300 -300 Weight 44.5 kg Intake: Oral 228 Output: Urine 350 300 300 Other: Voiding Method Indwelling Catheter Indwelling Catheter Indwelling Catheter # Bowel Movements 1 - Exam GENERAL EXAM: Arousable, very weak 67-year-old female, on 6 L nasal cannula, fairly comfortable in no apparent distress. HEAD: Normocephalic and atraumatic EYES: Normal reaction of pupils, equal size. NOSE: Clear with pink turbinates. THROAT: No erythema or exudates. NECK: No masses, no JVD. CHEST: No chest wall deformity. LUNGS: Equal air entry with basilar crackles left greater than right. No conversational dyspnea or accessory muscle use. CVS: S1 and S2 normal with no audible murmur, regular rhythm. ABDOMEN: No hepatosplenomegaly, normal bowel sounds, no guarding or rigidity. SPINE: No scoliosis or deformity. no CVA tenderness. SKIN: No rashes CENTRAL NERVOUS SYSTEM: No focal deficits, tone is normal in all 4 extremities. EXTREMITIES: There is no peripheral edema, clubbing, or cyanosis. Peripheral pulses are intact. there is a left BKA - Labs CBC & Chem 7: 10/03/22 09:14 10/03/22 09:14 Labs: Abnormal Lab Results - Last 24 Hours (Table) 10/02/22 10/02/22 10/02/22 Range/Units 11:54 16:39 20:18 RBC (3.80-5.40) m/uL Hgb (11.4-16.0) gm/dL Hct (34.0-46.0) % MCHC (31.0-37.0) g/dL BUN (7-17) mg/dL Creatinine (0.52-1.04) mg/dL Glucose (74-99) mg/dL POC Glucose (mg/dL) 133 H 148 H 262 H (70-110) mg/dL Calcium (8.4-10.2) mg/dL 10/03/22 10/03/22 10/03/22 Range/Units 09:14 09:14 10:05 RBC 3.45 L (3.80-5.40) m/uL Hgb 9.5 L (11.4-16.0) gm/dL Hct 30.6 L (34.0-46.0) % MCHC 30.9 L (31.0-37.0) g/dL BUN 94 H (7-17) mg/dL Creatinine 7.17 H* (0.52-1.04) mg/dL Glucose 43 L* (74-99) mg/dL POC Glucose (mg/dL) 50 L (70-110) mg/dL Calcium 7.3 L (8.4-10.2) mg/dL 10/03/22 10/03/22 Range/Units 10:23 10:35 RBC (3.80-5.40) m/uL Hgb (11.4-16.0) gm/dL Hct (34.0-46.0) % MCHC (31.0-37.0) g/dL BUN (7-17) mg/dL Creatinine (0.52-1.04) mg/dL Glucose (74-99) mg/dL POC Glucose (mg/dL) 175 H 166 H (70-110) mg/dL Calcium (8.4-10.2) mg/dL Microbiology - Last 24 Hours (Table) 09/26/22 20:16 Blood Culture - Final Blood No Growth after 144 hours 09/26/22 20:05 Blood Culture - Final Blood No Growth after 144 hours Assessment and Plan Assessment: Large right lung mass with suspicious adenopathy. Navigational bronchoscopy with biopsies and FNA of lymph node performed on 09/29/2022. Pathology pending. Large left pleural effusion. Improved post thoracentesis 09/27/2022. Pathology positive for metastatic mammary adenocarcinoma. Acute kidney injury. Hold nephrotoxic agents. Current creatinine 7.17. GFR 5 Metabolic acidosis, secondary to above Acute anemia, receiving iron supplements Left breast invasive ductal carcinoma diagnosed April,. Now stage IV clinically, hormone receptor positive, HER-2 negative. Insulin-dependent diabetes mellitus. Hypertension Hyperlipidemia Current smoker. 100 pack years History of left BKA Plan: The patient was seen and evaluated CT scan brain, medications and labs reviewed Pleural fluid positive for metastatic mammary adenocarcinoma Clinically now stage IV breast cancer Lung biopsy still pending Currently on 6 L high flow nasal cannula Titrate the FiO2 as tolerated Nephrology following regarding possible [employer] Overall prognosis remains guarded We will continue to follow I have personally seen and examined the patient, performed the documentation and the assessment and plan as written. Number of minutes spent on the visit: 10.
--- NOTE | 2022-10-03 12:27 | P.PN ---
Subjective Patient is seen for follow-up for acute kidney injury, mostly ATN with worsening renal function. Patient has history of left breast cancer diagnosed in April 2022. She was also noted to have a right lung mass with mediastinal adenopathy highly bailey spicious for malignancy currently awaiting pathology from transbronchial biopsies and needle aspiration of lymph nodes. Renal function has been worsening with serum creatinine up to 7.1 today. No rita dence of obstruction on ultrasound of the kidneys Blood pressure has not been low Patient has an indwelling Beltran catheter. 300 mL of urine noted overnight. I discussed the case with patient's sister Lola. She agrees that at this time patient is an ideal candidate for renal replacement therapy and does not want to proceed with hemodialysis. Awaiting final pathology results. Metastases to the left shoulder were noted as well. This morning patient is lethargic. She moans. Patient has not been eating much. Objective - Vital Signs Vital signs: Vital Signs Temp 97.4 F L 10/03/22 08:00 Pulse 78 10/03/22 08:00 Resp 20 10/03/22 08:00 BP 147/74 10/03/22 08:00 Pulse Ox 93 L 10/03/22 08:00 FiO2 50 10/03/22 00:00 Intake & Output 10/02/22 10/03/22 10/03/22 18:59 06:59 18:59 Intake Total 228 Output Total 350 300 300 Balance -122 -300 -300 Weight 44.5 kg Intake: Oral 228 Output: Urine 350 300 300 Other: Voiding Method Indwelling Catheter Indwelling Catheter Indwelling Catheter # Bowel Movements 1 - Exam Patient is awake, comfortable, in no acute distress She is lethargic. Not communicating much today. Examination of the heart S1 and S2 Examination of the lungs bilateral breath sounds are heard Abdomen is soft nontender Examination of the lower extremities shows no significant edema COSMETIC SALES exam grossly intact - Labs CBC & Chem 7: 10/03/22 09:14 10/03/22 09:14 Labs: Abnormal Lab Results - Last 24 Hours (Table) 10/02/22 10/02/22 10/03/22 Range/Units 16:39 20:18 09:14 RBC 3.45 L (3.80-5.40) m/uL Hgb 9.5 L (11.4-16.0) gm/dL Hct 30.6 L (34.0-46.0) % MCHC 30.9 L (31.0-37.0) g/dL BUN (7-17) mg/dL Creatinine (0.52-1.04) mg/dL Glucose (74-99) mg/dL POC Glucose (mg/dL) 148 H 262 H (70-110) mg/dL Calcium (8.4-10.2) mg/dL 10/03/22 10/03/22 10/03/22 Range/Units 09:14 10:05 10:23 RBC (3.80-5.40) m/uL Hgb (11.4-16.0) gm/dL Hct (34.0-46.0) % MCHC (31.0-37.0) g/dL BUN 94 H (7-17) mg/dL Creatinine 7.17 H* (0.52-1.04) mg/dL Glucose 43 L* (74-99) mg/dL POC Glucose (mg/dL) 50 L 175 H (70-110) mg/dL Calcium 7.3 L (8.4-10.2) mg/dL 10/03/22 10/03/22 Range/Units 10:35 11:29 RBC (3.80-5.40) m/uL Hgb (11.4-16.0) gm/dL Hct (34.0-46.0) % MCHC (31.0-37.0) g/dL BUN (7-17) mg/dL Creatinine (0.52-1.04) mg/dL Glucose (74-99) mg/dL POC Glucose (mg/dL) 166 H 121 H (70-110) mg/dL Calcium (8.4-10.2) mg/dL Microbiology - Last 24 Hours (Table) 09/26/22 20:16 Blood Culture - Final Blood No Growth after 144 hours 09/26/22 20:05 Blood Culture - Final Blood No Growth after 144 hours Assessment and Plan Assessment: 1. Acute kidney injury with worsening renal function mostly ATN with underlying diabetic nephropathy. No evidence of obstruction. No plans for renal replacement therapy given her recent diagnosis of malignancy with evidence of metastasis and right lung mass with metastases to the shoulder as well. 2. Left plural effusion status post thoracentesis 3. History of left breast cancer 4. Right lung mass with adenopathy status post bronchoscopy and needle aspiration of lymph nodes, awaiting pathology 5. COPD 6. Anemia with evidence of iron deficiency maintained on IV iron Plan: No plans for renal replacement therapy. Discussed with patient's sister Riddhi.
[2022-10-03 12:30] VITALS: BP 125/64; PULSE 70
--- NOTE | 2022-10-03 12:34 | P.PN ---
Subjective Progress Note Date: 10/03/22 this is a pleasant 67 years old female with past medical history of hypertension, hyperlipidemia, Bipolar, anxiety and depression, diabetes mellitus Patient was complaining of from dyspnea for about a week and her PCP Dr. Gutiérrez send her to emergency room. She denies cough no chest pain patient noticed decrease frequency and amount of urination recently She's been feeling dizziness for the last 3 months but no weakness or numbness. No GI symptoms like no vomiting diarrhea or abdominal pain Patient also follow up with Dr. dash for recently diagnosed left breast cancer as she states since last April. She is not on chemotherapy Vitals are stable, blood pressure elevated to 225/99, now improved 189/82 Labs including CBC is unremarkable. Creatinine is elevated 4.7 was 3.7 about 5 days ago There were enzymes are unremarkable, proBNP is elevated 11 600, troponin is negative. EKG showing normal sinus rhythm at [address]-T changes Increased right lower lobe airspace opacity correlated for developing pneumonia. Right upper lobe pulmonary suspected mass remains present. Seminal moderate left pleural effusion and trace right pleural effusion In the emergency room patient started on Zithromax and ceftriaxone and normal saline 100 mL/h. Bladder scan checks it was 270 09/28/2022 Patient still have mild dyspnea while she is lying in bed, she still also complained from low urine output and she is still constipated. She denies chest pain abdominal pain or headache, weakness or numbness. No report of GI bleed or blood in stool. Her vitals looks stable and she is saturating 95% and 2 L oxygen via nasal cannula. Her hemoglobin went down to 8.9 today while creatinine went up to 5, glucose was elevated, at times was taken Levemir 40 units and insulin sliding scale, because of her renal problem we lower the dose to 20 units daily. Currently on ceftriaxone and Zithromax and sodium bicarb. Blood pressure is better 152/60 through while she is on clonidine patch 0.2 on Norvasc 10 mg daily. And hydralazine 25 mg 3 times a day 09/29/2022 Patient is more short of breath Occasional coughing and no chest pain No other new complaints, Bone scan shows some uptake in the left upper extremity however patient denies any pain there is no restriction of movement, further recommendation defer to oncology team ordered a bone scan. Also patient planned to go bronchoscopy and biopsy by pulmonary team today. Creatinine worsened to 5.5 and nephrology assessing for possible and a pleasant therapy as indicated. Glucose is better controlled 09/30. Patient seen and examined. Still complaining of shortness of breath. Also complaining of nausea and poor appetite. 10/01. Patient seen and examined. Patient was transitioned to BiPAP last night, this morning she states she feels much better, denies any lightheadedness or dizziness. 10/02. Patient seen and examined. Patient was on BiPAP overnight, currently on nasal cannula. Patient's kidney functions have worsened, nephrology will discuss with patient regarding renal replacement therapy 10/03. Patient seen and examined. Patient is very lethargic this morning. Tachypneic and short of breath as well. Currently on 6 L of oxygen via nasal cannula REVIEW OF SYSTEMS: Unable to obtain a detailed review of systems today because of patient lethargic PHYSICAL EXAMINATION: GENERAL: Lethargic, tachypneic. In looking HEENT: Pupils are round and equally reacting to light. EOMI. No scleral icterus. No conjunctival pallor. Normocephalic, atraumatic. No pharyngeal erythema. No thyromegaly. CARDIOVASCULAR: S1 and S2 present. No murmurs, rubs, or gallops. PULMONARY: Tachypneic, Diminished breath sounds at the bases bilaterally, basilar crackles audible ABDOMEN: Soft, nontender, nondistended, normoactive bowel sounds. No palpable organomegaly. MUSCULOSKELETAL: No joint swelling or deformity. EXTREMITIES: No cyanosis, clubbing, or pedal edema. NEUROLOGICAL: Moving all extremities SKIN: No rashes. Assessment and plan Acute renal failure Right upper lobe pulmonary mass suspected, Left pleural effusion, status post thoracocentesis Pleural fluid positive for metastatic mammary adenocarcinoma Anemia History of left breast cancer diagnosed last April not on chemotherapy Possible acute diastolic CHF Right lower lobe opacities, less likely pneumonia Hypertension Hyperlipidemia Diabetes mellitus History of bipolar, anxiety, not in active tissue Surgery of left BKA Plan: Monitor vital signs Monitor CBC Monitor CMP Continue BiPAP Status postnavigational bronchoscopy with multiple transbronchial biopsies of the right upper lobe mass with brushings and washings. Also fine-needle aspirate of subcarinal lymph nodes. Pleural fluid positive for metastatic mammary adenocarcinoma Continue IV Lasix per nephrology. Nephrology has discussed with patient's family, explained to them patient's poor prognosis, the patient not being the ideal candidate for renal replacement therapy, family leaning towards hospice Follow-up on pulmonary recommendations Follow-up in nephrology recommendations Follow-up on nephrology recommendations Palliative care and hospice consulted Objective - Vital Signs Vital signs: Vital Signs Temp 97.4 F L 10/03/22 08:00 Pulse 78 10/03/22 08:00 Resp 20 10/03/22 08:00 BP 147/74 10/03/22 08:00 Pulse Ox 93 L 10/03/22 08:00 FiO2 50 10/03/22 00:00 Intake & Output 10/02/22 10/03/22 10/03/22 18:59 06:59 18:59 Intake Total 228 Output Total 350 300 300 Balance -122 -300 -300 Weight 44.5 kg Intake: Oral 228 Output: Urine 350 300 300 Other: Voiding Method Indwelling Catheter Indwelling Catheter Indwelling Catheter # Bowel Movements 1 - Labs CBC & Chem 7: 10/03/22 09:14 10/03/22 09:14 Labs: Abnormal Lab Results - Last 24 Hours (Table) 10/02/22 10/02/22 10/03/22 Range/Units 16:39 20:18 09:14 RBC 3.45 L (3.80-5.40) m/uL Hgb 9.5 L (11.4-16.0) gm/dL Hct 30.6 L (34.0-46.0) % MCHC 30.9 L (31.0-37.0) g/dL BUN (7-17) mg/dL Creatinine (0.52-1.04) mg/dL Glucose (74-99) mg/dL POC Glucose (mg/dL) 148 H 262 H (70-110) mg/dL Calcium (8.4-10.2) mg/dL 10/03/22 10/03/22 10/03/22 Range/Units 09:14 10:05 10:23 RBC (3.80-5.40) m/uL Hgb (11.4-16.0) gm/dL Hct (34.0-46.0) % MCHC (31.0-37.0) g/dL BUN 94 H (7-17) mg/dL Creatinine 7.17 H* (0.52-1.04) mg/dL Glucose 43 L* (74-99) mg/dL POC Glucose (mg/dL) 50 L 175 H (70-110) mg/dL Calcium 7.3 L (8.4-10.2) mg/dL 10/03/22 10/03/22 Range/Units 10:35 11:29 RBC (3.80-5.40) m/uL Hgb (11.4-16.0) gm/dL Hct (34.0-46.0) % MCHC (31.0-37.0) g/dL BUN (7-17) mg/dL Creatinine (0.52-1.04) mg/dL Glucose (74-99) mg/dL POC Glucose (mg/dL) 166 H 121 H (70-110) mg/dL Calcium (8.4-10.2) mg/dL Microbiology - Last 24 Hours (Table) 09/26/22 20:16 Blood Culture - Final Blood No Growth after 144 hours 09/26/22 20:05 Blood Culture - Final Blood No Growth after 144 hours
--- NOTE | 2022-10-03 18:55 | P.PN ---
Subjective Progress Note Date: 10/03/22 Principal diagnosis: SOB, breast cancer Pt was noticeably more confused today than yesterday. She is arousable, but is obtunded. She is alert to person, but not to place or time. Denies pain when asked, reports not feeling good. Family was at bedside and reports they were called in due to worsening in patient's condition. Sister is asking to speak with someone from the palliative care team. Objective - Vital Signs Vital signs: Vital Signs Temp 97.4 F L 10/03/22 08:00 Pulse 78 10/03/22 08:00 Resp 20 10/03/22 08:00 BP 147/74 10/03/22 08:00 Pulse Ox 93 L 10/03/22 08:00 FiO2 50 10/03/22 00:00 Intake & Output 10/02/22 10/03/22 10/03/22 18:59 06:59 18:59 Intake Total 228 Output Total 350 300 300 Balance -122 -300 -300 Weight 44.5 kg Intake: Oral 228 Output: Urine 350 300 300 Other: Voiding Method Indwelling Catheter Indwelling Catheter Indwelling Catheter # Bowel Movements 1 - Constitutional General appearance: Present: average body habitus, no acute distress - EENT Eyes: Present: anicteric sclerae, EOMI ENT: Present: hearing grossly normal - Respiratory Details: breathing mildly labored Respiratory: bilateral: rhonchi, wheezing - Cardiovascular Rhythm: regular Heart sounds: normal: S1, S2 Abnormal Heart Sounds: Absent: systolic murmur, diastolic murmur, rub, S3 Gallop, S4 Gallop, click, other - Gastrointestinal General gastrointestinal: Present: soft. Absent: tenderness - Integumentary Integumentary: Present: normal - Neurologic Neurologic Comment(s): able to answer some questions appropriately, but confused speech present at times - Musculoskeletal Musculoskeletal: Present: strength equal bilaterally - Psychiatric Psychiatric Comment(s): A&Ox 1, oriented to person, obtunded - Labs CBC & Chem 7: 10/03/22 09:14 10/03/22 09:14 Labs: Abnormal Lab Results - Last 24 Hours (Table) 10/02/22 10/02/22 10/03/22 Range/Units 16:39 20:18 09:14 RBC 3.45 L (3.80-5.40) m/uL Hgb 9.5 L (11.4-16.0) gm/dL Hct 30.6 L (34.0-46.0) % MCHC 30.9 L (31.0-37.0) g/dL BUN (7-17) mg/dL Creatinine (0.52-1.04) mg/dL Glucose (74-99) mg/dL POC Glucose (mg/dL) 148 H 262 H (70-110) mg/dL Calcium (8.4-10.2) mg/dL 10/03/22 10/03/22 10/03/22 Range/Units 09:14 10:05 10:23 RBC (3.80-5.40) m/uL Hgb (11.4-16.0) gm/dL Hct (34.0-46.0) % MCHC (31.0-37.0) g/dL BUN 94 H (7-17) mg/dL Creatinine 7.17 H* (0.52-1.04) mg/dL Glucose 43 L* (74-99) mg/dL POC Glucose (mg/dL) 50 L 175 H (70-110) mg/dL Calcium 7.3 L (8.4-10.2) mg/dL 10/03/22 10/03/22 Range/Units 10:35 11:29 RBC (3.80-5.40) m/uL Hgb (11.4-16.0) gm/dL Hct (34.0-46.0) % MCHC (31.0-37.0) g/dL BUN (7-17) mg/dL Creatinine (0.52-1.04) mg/dL Glucose (74-99) mg/dL POC Glucose (mg/dL) 166 H 121 H (70-110) mg/dL Calcium (8.4-10.2) mg/dL Microbiology - Last 24 Hours (Table) 09/26/22 20:16 Blood Culture - Final Blood No Growth after 144 hours 09/26/22 20:05 Blood Culture - Final Blood No Growth after 144 hours Assessment and Plan (1) Breast carcinoma Status: Acute Priority: High Code(s): C50.919 - MALIGNANT NEOPLASM OF UNSP SITE OF UNSPECIFIED FEMALE BREAST SNOMED Code(s): 459199223 (2) Mass of lung Status: Acute Priority: High Code(s): R91.8 - OTHER NONSPECIFIC ABNORMAL FINDING OF LUNG FIELD SNOMED Code(s): 566881160 Plan: Invasive ductal carcinoma -Stage IIIc clinically, hormone receptor positive, HER-2 negative. -Bone scan completed, showing tracer activity of posterior aspect of left ramirez ulder. -Ca 15.3 and Ca 27.29 markers elevated -Status post 750 cc thoracentesis, cytology showed positive metastatic mammary carcinoma. Discussed results with family today. Based on these results, pt has stage IV malignancy, not curable but there are treatment options. Treatment is reasonable is pt with good performance status but, pt PS is ECOG 2-3. She is also contending now with renal failure requiring ALLERGY PHYSICIAN. It will likely be very difficult for pt coordinate cancer treatment and dialysis as pt is dependent on family for all aspects of care, transportation. All family's questions were answered to their satisfaction. Shortness of breath -Lt Pleural effusion and a right lung mass. -Lt pl fluid + for metastatic breast cancer. -Bronchoscopy completed 09/29/21, biopsy of RUL and subcarinal lymph nodes obtained, pathology pending -Will f/u on pending biopsies with patient/family. Outpt f/u with Dr Jose Daniel Adamson on 10/09. However, at this time family is requesting palliative care consult to discuss options of discontinuing care and to transition to comfort care due to patients deteriorating status. Consult place and call made to Palliative care team to discuss case Time with Patient: Greater than 30
--- NOTE | 2022-10-04 09:11 | P.DS ---
Providers Date of admission: 09/26/22 19:06 Expected date of discharge: 10/03/22 Attending physician: Mitzi Hunter Consults: 09/26/22 19:06 Consult Physician Routine Consulting Provider: Ronald Anne Consult Reason/Comments: Acute renal failure Do you want consulting provider notified?: Yes 09/27/22 00:37 Consult Physician Routine Consulting Provider: Velma Masters Consult Reason/Comments: lung mass Do you want consulting provider notified?: Yes 09/27/22 09:28 Consult Physician Routine Consulting Provider: Blake Coon Consult Reason/Comments: h/o breast cancer, lung mass Do you want consulting provider notified?: Yes 10/03/22 11:10 Consult to Palliative Care Routine Consulting Provider: Reina Obregon Consult Reason/Comments: informational session with family Do you want consulting provider notified?: Already Contacted Primary care physician: Diomedes Gutiérrez [facility] Course: Discharge diagnoses; Acute renal failure Right upper lobe pulmonary mass suspected, Left pleural effusion, status post thoracocentesis Pleural fluid positive for metastatic mammary adenocarcinoma Anemia History of left breast cancer diagnosed last April not on chemotherapy Possible acute diastolic CHF Right lower lobe opacities, less likely pneumonia Hypertension Hyperlipidemia Diabetes mellitus History of bipolar, anxiety, not in active tissue Surgery of left BKA Hospital course; this is a pleasant 67 years old female with past medical history of hypertension, hyperlipidemia, Bipolar, anxiety and depression, diabetes mellitus Patient was complaining of from dyspnea for about a week and her PCP Dr. Gutiérrez send her to emergency room. She denies cough no chest pain patient noticed decrease frequency and amount of urination recently She's been feeling dizziness for the last 3 months but no weakness or numbness. No GI symptoms like no vomiting diarrhea or abdominal pain Patient also follow up with Dr. adamson for recently diagnosed left breast cancer as she states since last April. She is not on chemotherapy Vitals are stable, blood pressure elevated to 225/99, now improved 189/82 Labs including CBC is unremarkable. Creatinine is elevated 4.7 was 3.7 about 5 days ago There were enzymes are unremarkable, proBNP is elevated 11 600, troponin is negative. EKG showing normal sinus rhythm at [address]-T changes Increased right lower lobe airspace opacity correlated for developing pneumonia. Right upper lobe pulmonary suspected mass remains present. Seminal moderate left pleural effusion and trace right pleural effusion In the emergency room patient started on Zithromax and ceftriaxone and normal saline 100 mL/h. Bladder scan checks it was 270 09/28/2022 Patient still have mild dyspnea while she is lying in bed, she still also complained from low urine output and she is still constipated. She denies chest pain abdominal pain or headache, weakness or numbness. No report of GI bleed or blood in stool. Her vitals looks stable and she is saturating 95% and 2 L oxygen via nasal cannula. Her hemoglobin went down to 8.9 today while creatinine went up to 5, glucose was elevated, at times was taken Levemir 40 units and insulin sliding scale, because of her renal problem we lower the dose to 20 units daily. Currently on ceftriaxone and Zithromax and sodium bicarb. Blood pressure is better 152/60 through while she is on clonidine patch 0.2 on Norvasc 10 mg daily. And hydralazine 25 mg 3 times a day 09/29/2022 Patient is more short of breath Occasional coughing and no chest pain No other new complaints, Bone scan shows some uptake in the left upper extremity however patient denies any pain there is no restriction of movement, further recommendation defer to oncology team ordered a bone scan. Also patient planned to go bronchoscopy and biopsy by pulmonary team today. Creatinine worsened to 5.5 and nephrology assessing for possible and a pleasant therapy as indicated. Glucose is better controlled 09/30. Patient seen and examined. Still complaining of shortness of breath. Also complaining of nausea and poor appetite. 10/01. Patient seen and examined. Patient was transitioned to BiPAP last night, this morning she states she feels much better, denies any lightheadedness or dizziness. 10/02. Patient seen and examined. Patient was on BiPAP overnight, currently on nasal cannula. Patient's kidney functions have worsened, nephrology will discuss with patient regarding renal replacement therapy 10/03. Patient seen and examined. Patient is very lethargic this morning. Tachypneic and short of breath as well. Currently on 6 L of oxygen via nasal cannula Palliative care was following the patient, family decided to make patient hospice, patient was discharged to inpatient hospice. PHYSICAL EXAMINATION: GENERAL: Lethargic, tachypneic. In looking HEENT: Pupils are round and equally reacting to light. EOMI. No scleral icterus. No conjunctival pallor. Normocephalic, atraumatic. No pharyngeal erythema. No thyromegaly. CARDIOVASCULAR: S1 and S2 present. No murmurs, rubs, or gallops. PULMONARY: Tachypneic, Diminished breath sounds at the bases bilaterally, basilar crackles audible ABDOMEN: Soft, nontender, nondistended, normoactive bowel sounds. No palpable organomegaly. MUSCULOSKELETAL: No joint swelling or deformity. EXTREMITIES: No cyanosis, clubbing, or pedal edema. NEUROLOGICAL: Moving all extremities SKIN: No rashes. Patient Condition at Discharge: Poor Plan - Discharge Summary Discharge Rx Participant: Yes New Discharge Prescriptions: No Action amLODIPine [Norvasc] 2.5 mg PO DAILY Sertraline [Zoloft] 50 mg PO DAILY busPIRone HCL 10 mg PO TID PRN PRN Reason: Anxiety Clopidogrel [Plavix] 75 mg PO DAILY DULoxetine HCL [Cymbalta] 60 mg PO BID Zinc Gluconate [Zinc] 50 mg PO DAILY Ascorbic Acid [Vitamin C] 1,000 mg PO BID Insulin Detemir [Levemir Flextouch Pen] 40 units SQ HS Fluticasone Nasal [place] [Flonase Nasal [place]] 1 spr EA NOSTRIL DAILY Atorvastatin [Lipitor] 20 mg PO DAILY lisinopriL 40 mg PO DAILY atenoloL [Tenormin] 50 mg PO DAILY Multivitamins, Thera [Multivitamin (formulary)] 1 tab PO DAILY Triamterene-Hctz 37.5-25Mg [Maxzide 37.5-25] 1 tab PO DAILY Meclizine [Antivert] 25 mg PO DAILY Insulin Aspart [NovoLOG Flexpen] See Protocol SQ AC-TID Discharge Medication List Atorvastatin [Lipitor] 20 mg PO DAILY 04/28/22 [History] Clopidogrel [Plavix] 75 mg PO DAILY 04/28/22 [History] DULoxetine HCL [Cymbalta] 60 mg PO BID 04/28/22 [History] Sertraline [Zoloft] 50 mg PO DAILY 04/28/22 [History] amLODIPine [Norvasc] 2.5 mg PO DAILY 04/28/22 [History] atenoloL [Tenormin] 50 mg PO DAILY 04/28/22 [History] busPIRone HCL 10 mg PO TID PRN 04/28/22 [History] lisinopriL 40 mg PO DAILY 04/28/22 [History] Ascorbic Acid [Vitamin C] 1,000 mg PO BID 09/26/22 [History] Fluticasone Nasal [place] [Flonase Nasal [place]] 1 spr EA NOSTRIL DAILY 09/26/22 [History] Insulin Aspart [NovoLOG Flexpen] See Protocol SQ AC-TID 09/26/22 [History] Insulin Detemir [Levemir Flextouch Pen] 40 units SQ HS 09/26/22 [History] Meclizine [Antivert] 25 mg PO DAILY 09/26/22 [History] Multivitamins, Thera [Multivitamin (formulary)] 1 tab PO DAILY 09/26/22 [History] Triamterene-Hctz 37.5-25Mg [Maxzide 37.5-25] 1 tab PO DAILY 09/26/22 [History] Zinc Gluconate [Zinc] 50 mg PO DAILY 09/26/22 [History] Follow up Appointment(s)/Referral(s): Alexis Adamson MD [STAFF PHYSICIAN] - 10/09/22 2:00 pm Diomedes Gutiérrez MD [Primary Care Provider] - 1-2 days Discharge [facility]: [facility]
== END 2022-10-03 16:23 | disposition hospice, inpatient (51) | DRG 180 ==
LOC: EC 17:29 → 4SSUR 19:06 → 3SCARD 10-01 10:53
PROVIDERS: ADMIT Hospitalist; ATTEND Hospitalist
PROC: 0W9B3ZX Drainage of Left Pleural Cavity, Percutaneous Approach, Diagnostic (ICD-10-PCS; 2022-09-27)
PROC: 8E0WXBZ Computer Assisted Procedure of Trunk Region (ICD-10-PCS; principal; 2022-09-29 13:30)
PROC: 0BD28ZX Extraction of Carina, Via Natural or Artificial Opening Endoscopic, Diagnostic (ICD-10-PCS; principal; 2022-09-29 13:30)
PROC: 0BDC8ZX Extraction of Right Upper Lung Lobe, Via Natural or Artificial Opening Endoscopic, Diagnostic (ICD-10-PCS; principal; 2022-09-29 13:30)
PROC: 0B9C8ZX Drainage of Right Upper Lung Lobe, Via Natural or Artificial Opening Endoscopic, Diagnostic (ICD-10-PCS; principal; 2022-09-29 13:30)
PROC: 5A0935A Assistance with Respiratory Ventilation, Less than 24 Consecutive Hours, High Flow/Velocity Cannula (ICD-10-PCS; 2022-10-01)
PROC: 5A09357 Assistance with Respiratory Ventilation, Less than 24 Consecutive Hours, Continuous Positive Airway Pressure (ICD-10-PCS; 2022-10-01)
DX: C78.01 Secondary malignant neoplasm of right lung (principal); I50.31 Acute diastolic (congestive) heart failure; N17.0 Acute kidney failure with tubular necrosis; J96.01 Acute respiratory failure with hypoxia; J91.0 Malignant pleural effusion; I13.0 Hypertensive heart and chronic kidney disease with heart failure and stage 1 through stage 4 chronic kidney disease, or unspecified chronic kidney disease; N17.9 Acute kidney failure, unspecified; E87.20 Acidosis, unspecified; C78.7 Secondary malignant neoplasm of liver and intrahepatic bile duct; C79.51 Secondary malignant neoplasm of bone; E11.65 Type 2 diabetes mellitus with hyperglycemia; E11.649 Type 2 diabetes mellitus with hypoglycemia without coma; C50.412 Malignant neoplasm of upper-outer quadrant of left female breast; Z17.0 Estrogen receptor positive status [ER+]; N18.9 Chronic kidney disease, unspecified; K59.00 Constipation, unspecified; E11.22 Type 2 diabetes mellitus with diabetic chronic kidney disease; D50.9 Iron deficiency anemia, unspecified; Z51.5 Encounter for palliative care; Z89.512 Acquired absence of left leg below knee; Z79.899 Other long term (current) drug therapy; Z79.4 Long term (current) use of insulin; Z79.02 Long term (current) use of antithrombotics/antiplatelets; Z87.820 Personal history of traumatic brain injury
CPT/HCPCS: 31624; 31625; 31627; 31629; 36415; 70450; 71045; 71046; 71250; 76604; 76770; 78306; 80048; 80053; 81001; 82607; 82728; 82746; 82805; 82945; 83036; 83540; 83550; 83605; 83615; 83735; 83880; 84145; 84155; 84157; 84484; 85025; 86300; 87040; 87070; 87075; 87102; 87116; 87205; 87206; 87252; 87496; 87498; 87502; 87529; 87634; 87798; 88108; 88173; 88305; 88341; 88342; 89050; 93005; 93306; 94640; 94660; 94760; 96361; 96365; 96375; 99285

== ENCOUNTER 2022-10-03 16:03 | Inpatient (IN) | payer MEDICAID ==
[2022-10-03] MEDS ORDERED: ONDANSETRON 4 MG/2 ML VIAL IVP PRN (16:05)
[2022-10-03] MEDS ORDERED: MORPHINE SULFATE 2 MG/ML SYRINGE IV PRN (16:05)
[2022-10-03] MEDS ORDERED: DRY MOUTH SPRAY 44.3 SPRAY/44.3 ML SPRAY MUCOUS MEM PRN (16:05)
[2022-10-03] MEDS ORDERED: ACETAMINOPHEN SUPPOSITORY 650 MG SUPP RECTAL PRN (16:05)
[2022-10-03] MEDS ORDERED: LORazepam 2 MG/ML INJ IV PRN (16:05)
[2022-10-03] MEDS ORDERED: GLYCOPYRROLATE 0.2 MG/ML 2 ML VIAL IVP PRN (16:05)
[2022-10-03] MEDS ORDERED: ATROPINE OPHTH SOLN 1% 5ML BTL SUBLINGUAL PRN (16:05)
[2022-10-03] MEDS ORDERED: SCOPOLAMINE 1 MG/72 HR PATCH TRANSDERM SCH (16:30)
[2022-10-03] MEDS ORDERED: MORPHINE SULFATE (100 MG/2 ML) 100 MG in SODIUM CHLORIDE 0.9% 100 ML IV SCH (17:00)
[2022-10-04 06:12] VITALS: PULSE 69; RESP 16
[2022-10-04 07:13] VITALS: BMI 16.3
--- NOTE | 2022-10-04 09:18 | P.HPIM ---
History of Present Illness H&P Date: 10/03/22 History of present illness :This is a pleasant 67 years old female with past medical history of hypertension, hyperlipidemia, Bipolar, anxiety and depression, diabetes mellitus who initially got admitted to the hospital because of worsening shortness of breath.chest CT showed a posterior right lung mass with enlarged mediastinal adenopathy, some thickening of the left adrenal gland which could indicate metastasis or adenoma, and some small to moderate to moderate bilateral pleural effusions with compressive atelectasis adjacent to the left pleural effusion. Patient also follow up with Dr. dash for recently diagnosed left breast cancer as she states since last April. She is not on chemotherapy. Patient was admitted to [facility] and pulmonology, nephrology and oncology were consulted. Patient was kept on IV antibiotics. Patient underwent postnavigational bronchoscopy with multiple transbronchial biopsies of the right upper lobe mass with brushings and washings. Also fine-needle aspirate of subcarinal lymph nodes. Patient also underwent thoracentesis. Pleural fluid cytology showed metastatic mammary adenocarcinoma. Patient renal function worsening, nephrology discussed with patient family and at this time because of patient's poor prognosis patient not a candidate for renal replacement therapy. Palliative care was following the patient and patient was rolled into inpatient hospice. REVIEW OF SYSTEMS: Review of systems cannot be obtained because patient is lethargic and confused at this time PHYSICAL EXAMINATION: GENERAL: Lethargic, tachypneic. Ill looking HEENT: Pupils are round and equally reacting to light. EOMI. No scleral icterus. No conjunctival pallor. Normocephalic, atraumatic. No pharyngeal erythema. No thyromegaly. CARDIOVASCULAR: S1 and S2 present. No murmurs, rubs, or gallops. PULMONARY: Tachypneic, Diminished breath sounds at the bases bilaterally, basilar crackles audible ABDOMEN: Soft, nontender, nondistended, normoactive bowel sounds. No palpable organomegaly. MUSCULOSKELETAL: No joint swelling or deformity. EXTREMITIES: No cyanosis, clubbing, or pedal edema. NEUROLOGICAL: Moving all extremities, lethargic SKIN: No rashes. Assessment and plan Acute renal failure Right upper lobe pulmonary mass suspected, Left pleural effusion, status post thoracocentesis Pleural fluid positive for metastatic mammary adenocarcinoma Anemia History of left breast cancer diagnosed last April not on chemotherapy Possible acute diastolic CHF Right lower lobe opacities, less likely pneumonia Hypertension Hyperlipidemia Diabetes mellitus History of bipolar, anxiety, not in active tissue Surgery of left BKA Plan; Continue comfort care measures Hospice following the patient Past Medical History Past Medical History: Cancer, Hyperlipidemia, Hypertension Additional Past Medical History / Comment(s): left breast ductal carcinoma diagnosed April, History of Any Multi-Drug Resistant Organisms: None Reported Additional Past Surgical History / Comment(s): Throat surgery for polyps. Left toe removed. Below the knee amputee 2011 Past Anesthesia/Blood Transfusion Reactions: No Reported Reaction Past Psychological History: Anxiety, Bipolar, Depression Smoking Status: Current every day smoker Past Alcohol Use History: None Reported Additional Past Alcohol Use History / Comment(s): states 1ppd Past Drug Use History: Marijuana Additional Drug Use History / Comment(s): occassional THC use Medications and Allergies Home Medications Medication Instructions Recorded Confirmed Type Atorvastatin [Lipitor] 20 mg PO DAILY 04/28/22 10/03/22 History Clopidogrel [Plavix] 75 mg PO DAILY 04/28/22 10/03/22 History DULoxetine HCL [Cymbalta] 60 mg PO BID 04/28/22 10/03/22 History Sertraline [Zoloft] 50 mg PO DAILY 04/28/22 10/03/22 History amLODIPine [Norvasc] 2.5 mg PO DAILY 04/28/22 10/03/22 History atenoloL [Tenormin] 50 mg PO DAILY 04/28/22 10/03/22 History busPIRone HCL 10 mg PO TID PRN 04/28/22 10/03/22 History lisinopriL 40 mg PO DAILY 04/28/22 10/03/22 History Ascorbic Acid [Vitamin C] 1,000 mg PO BID 09/26/22 10/03/22 History Fluticasone Nasal [place] [Flonase 1 spr EA NOSTRIL DAILY 09/26/22 10/03/22 History Nasal [place]] Insulin Aspart [NovoLOG Flexpen] See Protocol SQ AC-TID 09/26/22 10/03/22 History Insulin Detemir [Levemir Flextouch 40 units SQ HS 09/26/22 10/03/22 History Pen] Meclizine [Antivert] 25 mg PO DAILY 09/26/22 10/03/22 History Multivitamins, Thera [Multivitamin 1 tab PO DAILY 09/26/22 10/03/22 History (formulary)] Triamterene-Hctz 37.5-25Mg 1 tab PO DAILY 09/26/22 10/03/22 History [Maxzide 37.5-25] Zinc Gluconate [Zinc] 50 mg PO DAILY 09/26/22 10/03/22 History Allergies Allergy/AdvReac Type Severity Reaction Status Date / Time No Known Allergies Allergy Verified 09/26/22 17:40 Physical Exam Vitals: Vital Signs Pulse Resp Pulse Ox 10/04/22 08:33 91 L 10/04/22 08:00 69 16 10/04/22 04:00 69 16 10/03/22 20:00 74 18 91 L Intake and Output 10/03/22 10/04/22 10/04/22 22:59 06:59 14:59 Intake Total 5.791 10.55 Output Total 100 Balance 5.791 -89.45 Intake: Intake, IV Titration 5.791 10.55 Amount Morphine Sulfate (100 mg/ 5.791 10.55 2 ml) 100 mg In Sodium Chloride 0.9% 100 ml @ 1 MG/HR 1.02 mls/hr IV . Q24H [facility] Rx#:[id number] Output: Urine 100 Other: Voiding Method Indwelling Catheter Indwelling Catheter Indwelling Catheter # Voids 0 Weight 44.5 kg 44.5 kg
--- NOTE | 2022-10-04 09:23 | P.DS ---
Providers Date of admission: 10/03/22 16:47 Expected date of discharge: 10/04/22 Attending physician: Martin Carreon MD Primary care physician: Diomedes Huizar [facility] Course: his is a pleasant 67 years old female with past medical history of hypertension, hyperlipidemia, Bipolar, anxiety and depression, diabetes mellitus who initially got admitted to the hospital because of worsening shortness of breath.chest CT showed a posterior right lung mass with enlarged mediastinal adenopathy, some thickening of the left adrenal gland which could indicate metastasis or adenoma, and some small to moderate to moderate bilateral pleural effusions with compressive atelectasis adjacent to the left pleural effusion. Patient also follow up with Dr. dash for recently diagnosed left breast cancer as she states since last April. She is not on chemotherapy. Patient was admitted to [facility] and pulmonology, nephrology and oncology were consulted. Patient was kept on IV antibiotics. Patient underwent postnavigational bronchoscopy with multiple transbronchial biopsies of the right upper lobe mass with brushings and washings. Also fine-needle aspirate of subcarinal lymph nodes. Patient also underwent thoracentesis. Pleural fluid cytology showed metastatic mammary adenocarcinoma. Patient renal function worsening, nephrology discussed with patient family and at this time because of patient's poor prognosis patient not a candidate for renal replacement therapy. Palliative care was following the patient and patient was rolled into inpatient hospice. Patient was on comfort care measures while she on 10/04/22 at 858 am Plan - Discharge Summary New Discharge Prescriptions: Discontinued amLODIPine [Norvasc] 2.5 mg PO DAILY Sertraline [Zoloft] 50 mg PO DAILY busPIRone HCL 10 mg PO TID PRN PRN Reason: Anxiety Clopidogrel [Plavix] 75 mg PO DAILY DULoxetine HCL [Cymbalta] 60 mg PO BID Zinc Gluconate [Zinc] 50 mg PO DAILY Ascorbic Acid [Vitamin C] 1,000 mg PO BID Insulin Detemir [Levemir Flextouch Pen] 40 units SQ HS Fluticasone Nasal [place] [Flonase Nasal [place]] 1 spr EA NOSTRIL DAILY Atorvastatin [Lipitor] 20 mg PO DAILY lisinopriL 40 mg PO DAILY atenoloL [Tenormin] 50 mg PO DAILY Multivitamins, Thera [Multivitamin (formulary)] 1 tab PO DAILY Triamterene-Hctz 37.5-25Mg [Maxzide 37.5-25] 1 tab PO DAILY Meclizine [Antivert] 25 mg PO DAILY Insulin Aspart [NovoLOG Flexpen] See Protocol SQ AC-TID Discharge Disposition: - Preliminary Cause of Preliminary Cause of : Metastatic cancer
== END 2022-10-04 11:49 | disposition expired | DRG 951 ==
LOC: 3SCARD 16:47
PROVIDERS: ADMIT Internal Medicine; ATTEND Internal Medicine
DX: Z51.5 Encounter for palliative care (principal); I50.31 Acute diastolic (congestive) heart failure; J98.11 Atelectasis; C78.1 Secondary malignant neoplasm of mediastinum; N17.9 Acute kidney failure, unspecified; J90 Pleural effusion, not elsewhere classified; I11.0 Hypertensive heart disease with heart failure; R91.8 Other nonspecific abnormal finding of lung field; D64.9 Anemia, unspecified; E11.9 Type 2 diabetes mellitus without complications; E78.5 Hyperlipidemia, unspecified; F17.210 Nicotine dependence, cigarettes, uncomplicated; F31.9 Bipolar disorder, unspecified; F41.9 Anxiety disorder, unspecified; Z66 Do not resuscitate; Z79.02 Long term (current) use of antithrombotics/antiplatelets; Z79.4 Long term (current) use of insulin; Z79.899 Other long term (current) drug therapy; Z85.3 Personal history of malignant neoplasm of breast; Z89.512 Acquired absence of left leg below knee
CPT/HCPCS: 94760